=== PATIENT | female | born 1940 | race Caucasian/White ===

== ENCOUNTER → 2016-08-22 | Outpatient (CLI) | payer MEDICARE, BC ==
[2016-08-22 10:14] LABS: Appearance,Urine Clear (Clear); Bilirubin,Urine Negative (Negative); Glucose,Urine (UA) Negative (Negative); Ketones,Urine Negative (Negative); Leukocyte Esterase,Urine Negative (Negative); Nitrite,Urine Negative (Negative); PH, Urine 6.5 (5.0-8.0); Protein,Urine Negative (Negative); Specific Gravity,Urine 1.014 (1.001-1.035); UA Billing (MACRO vs. MICRO) CHEM; Urobilinogen,Urine <2.0 mg/dL (<2.0)
[2016-08-22 10:58] LABS: CH 27.9; CHCM 31.4; HCT 34.2 % (34.0-46.0); HDW 2.97; HGB 10.8 gm/dL (11.4-16.0); Hypochromasia Slight; MCH 28.2 pg (25.0-35.0); MCHC 31.5 g/dL (31.0-37.0); MCV 89.4 fL (80.0-100.0); RBC 3.83 m/uL (3.80-5.40); RDW 14.1 % (11.5-15.5); WBC 4.7 k/uL (3.8-10.6)
[2016-08-22 11:02] LABS: AST 20 U/L (14-36); Alkaline Phosphatase 62 U/L (38-126); Anion Gap 11 mmol/L; Blood Urea Nitrogen 16 mg/dL (7-17); Calcium 9.6 mg/dL (8.4-10.2); Carbon Dioxide 27 mmol/L (22-30); Chloride 105 mmol/L (98-107); Cholesterol 132 mg/dL (<200); Glucose 94 mg/dL (74-99); HDL Cholesterol 41 mg/dL (40-60); Non-African American GFR(MDRD) 57 (>60 ml/min/1.73 sqM); Potassium 4.7 mmol/L (3.5-5.1); Sodium 143 mmol/L (137-145); Total Bilirubin 0.4 mg/dL (0.2-1.3); Total Protein 6.9 g/dL (6.3-8.2); Triglycerides 175 mg/dL (<150)
[2016-08-22 11:07] LABS: ALT 30 U/L (9-52)
--- NOTE | 2016-08-22 12:00 | BD ---
EXAMINATION TYPE: MG DEXA axial skeleton. DATE OF EXAM: 08/22/2016 9:37 AM COMPARISON: NONE CLINICAL HISTORY: Height: 60.5 IN Weight: 142 LBS FRAX RISK QUESTIONS: Alcohol (3 or more units per day): NO Family History (Parent hip fracture): YES MOTHER Glucocorticoids (More than 3mos): NO (Ex: prednisone, prednisolone, methylprednisolone, dexamethasone, and hydrocortisone). History of Fracture in Adulthood: YES Secondary Osteoporosis: 1. Type 1 Diabetes: NO 2. Hyperthyroidism: NO 3. Menopause before 45: AGE 49 4. Malnutrition: NO 5. Chronic liver disease: NO Rheumatoid Arthritis: NO Current Tobacco Use: NO RISK FACTORS HISTORY OF: History of Wrist Fracture: YES When: AGE 9 Other Fractures since Age 49: YES RT SHOULDER When: AGE 70 Active: MODERATE Postmenopausal woman: YES AGE 49 Lost more than 2 inches in height since high school: YES 4 08/11" MEDICATIONS: Thyroid Medications: YES Which medication: Synthroid How Lon+ YRS Osteoporosis Medications: NOT NOW Which medication: Fosamax How Long: AGE 55 - 56 Additional Medications: OS TOMMY, SYNTHROID, AFIB MEDS, WHARFARIN, PREVACID, EXAM MEASUREMENTS: Bone mineral densitometry was performed using the [employer] System. Bone mineral density as measured about the Lumbar spine is: ----- L1-L4(G/cm2): 0.886 T Score Values are as follows: ----- L2: -3.0 ----- L3: -2.7 ----- L4: -2.0 ----- L1-L4: -2.5 Bone mineral density BASELINE Bone mineral density about the R hip (g/cm2): 0.591 Bone mineral density about the L hip (g/cm2): 0.570 T Score values are as follows: -----R Neck: -3.2 -----L Neck: -3.4 -----R Intertrochanter: -4.0 -----L Intertrochanter: -4.0 Bone mineral density BASELINE IMPRESSION: Osteoporosis (T Score less than -2.5) as noted by T Score values at the There is increased fracture risk and therapy is usually indicated based on age. Re-Screen 1-2 years. L SPINE AND MATHEW HIPS NOTE: T-SCORE=SD OF THE YOUNG ADULT MEAN.
== END | disposition home or self-care (01) ==
LOC: RADBDWWP 09:05
PROVIDERS: ATTEND Internal Medicine
DX: M81.0 Age-related osteoporosis without current pathological fracture (principal); E03.9 Hypothyroidism, unspecified; E78.5 Hyperlipidemia, unspecified; I48.0 Paroxysmal atrial fibrillation; M19.90 Unspecified osteoarthritis, unspecified site
CPT/HCPCS: 36415; 77080; 80053; 80061; 81003; 82306; 84443; 85027

== ENCOUNTER → 2016-09-09 | Outpatient (CLI) | payer MEDICARE, BC ==
[~2016-09-09] MED LIST: DENOSUMAB 60 MG/ML 1 ML SYRINGE SQ ONE
[2016-09-09 14:27] VITALS: BP 133/71; PULSE 73; RESP 16; TEMP 97.9
== END | disposition home or self-care (01) ==
LOC: PROCWHC3 13:55
PROVIDERS: ATTEND Internal Medicine
DX: M81.0 Age-related osteoporosis without current pathological fracture (principal)
CPT/HCPCS: 96372; J0897

== ENCOUNTER 2017-02-05 16:04 | Emergency (ER) | payer MEDICARE, BC ==
[2017-02-05] MEDS ORDERED: HYDROmorphone 1 MG/ML 1 ML SYRINGE IVP STA (18:56)
--- NOTE | 2017-02-05 19:04 | ED ---
Extremity Problem HPI - General Chief complaint: Extremity Problem,Nontraumatic Stated complaint: Leg Pain Time Seen by Provider: 02/05/17 18:14 Source: patient, RN notes reviewed Mode of arrival: wheelchair Limitations: no limitations - History of Present Illness Initial comments: Patient is a 76-year-old female presents to the emergency room for evaluation of right leg pain. Patient states she woke up in the middle of the night with pain. Patient states pain is worse and she presses over the posterior portion of her knee or when she is applying weight to her right leg. Patient states she has a history of DVT in her left leg. Patient states that she takes 5 mg of Coumadin per day. Patient states her last INR check was about 3 weeks ago. Patient does admit she has a history of arthritis in her knee as well. Patient denies any warmth or redness in her knee. Patient denies back pain. Patient states she is having slight calf pain. Patient denies chest pain or shortness of breath. Patient denies fevers or chills. Patient denies any fall or trauma to her leg. - Related Data Home Medications Medication Instructions Recorded Confirmed Calcium Carb-Vit D 500Mg-200Un 1 tab PO QAM 01/22/14 02/05/17 [Oscal 500+D] Digoxin [Lanoxin] 125 mcg PO QAM 01/22/14 02/05/17 Lansoprazole [Prevacid] 30 mg PO W/SUPPER 01/22/14 02/05/17 Levothyroxine Sodium [Synthroid] 50 mcg PO QAM 01/22/14 02/05/17 Warfarin [Coumadin] 5 mg PO Q48H 01/22/14 02/05/17 Furosemide [Lasix] 20 mg PO DAILY PRN 02/05/17 02/05/17 Metoprolol Tartrate [Lopressor] 37.5 mg PO BID 02/05/17 02/05/17 Multivitamins, Thera [Multivitamin 1 tab PO QAM 02/05/17 02/05/17 (formulary)] Allergies Allergy/AdvReac Type Severity Reaction Status Date / Time Iodinated Contrast Media - Allergy Rash/Hives Verified 02/05/17 19:05 Oral and theophylline Allergy Anaphylaxis Verified 02/05/17 19:05 Review of Systems ROS Statement: Those systems with pertinent positive or pertinent negative responses have been documented in the HPI. ROS Other: All systems not noted in ROS Statement are negative. Past Medical History Past Medical History: COPD, Deep Vein Thrombosis (DVT), Osteoarthritis (OA), Pulmonary Embolus (PE), Thyroid Disorder History of Any Multi-Drug Resistant Organisms: MRSA Date of last positivie culture/infection: 2012 MDRO Source:: EYES Past Surgical History: Cholecystectomy, Orthopedic Surgery Additional Past Surgical History / Comment(s): CARPAL TUNNEL, CATARACT shoulder Past Psychological History: No Psychological Hx Reported Smoking Status: Former smoker Past Alcohol Use History: Occasional Past Drug Use History: None Reported General Exam - General Exam Comments Initial Comments: Sitting in exam room, no acute distress. Limitations: no limitations General appearance: alert, in no apparent distress Head exam: Present: atraumatic, normocephalic, normal inspection Eye exam: Present: normal appearance ENT exam: Present: normal exam Neck exam: Present: normal inspection Respiratory exam: Present: normal lung sounds bilaterally. Absent: respiratory distress Cardiovascular Exam: Present: regular rate, normal rhythm, normal heart sounds Right Knee exam: Present: full ROM, tenderness (posterior ). Absent: normal inspection (swelling) Lower Leg exam: Present: normal inspection, tenderness Ankle exam: Present: normal inspection. Absent: tenderness Neurovascular tendon exam: Present: no vascular compromise. Absent: pulse deficit (2+ dorsal pedal and posterior tibial pulses), abnormal cap refill ( capillary refill less than 2 seconds) Back exam: Present: normal inspection Neurological exam: Present: alert, oriented X3, CN II-XII intact, normal gait Psychiatric exam: Present: normal affect, normal mood Skin exam: Present: warm, dry, intact, normal color. Absent: rash Course Vital Signs 02/05/17 02/05/17 02/05/17 16:15 19:25 21:02 Temperature 98.7 F 97.2 F L Pulse Rate 96 74 83 Respiratory 18 18 19 Rate Blood Pressure 135/63 159/77 144/70 O2 Sat by Pulse 93 L 98 96 Oximetry Medical Decision Making - Medical Decision Making Patient is a 76-year-old female presents to the emergency room for evaluation of right knee pain. Venous Doppler ultrasound of right lower extremity negative for acute DVT. Ringing x-ray significant for arthritis. INR therapeutic level. Results discussed with patient. Patient states she is [facility] at home to take for pain. No redness or erythema of the knee or leg. Advised patient to follow-up with primary care provider symptoms are not subsiding. Patient states she understands everything that was discussed with her. Return parameters discussed. Case discussed with Dr. Us. - Lab Data Lab Results 02/05/17 Range/Units 19:20 PT 21.6 H (9.0-12.0) sec INR 2.2 (<1.1) - Radiology Data Radiology results: report reviewed, image reviewed Disposition Clinical Impression: Right knee pain, Osteoarthritis of right knee Disposition: HOME SELF-CARE Condition: Good Instructions: Osteoarthritis (ED) Additional Instructions: Continue with at home pain medications. Please follow up with primary care provider in 1-2 days. If any new symptom arises or symptoms worsen, return to ER as soon as possible. Referrals: Yang Dorado MD [Primary Care Provider] - 1-2 days Time of Disposition: 20:48
[2017-02-05 19:52] LABS: INR 2.2 (<1.1); Prothrombin Time 21.6 sec (9.0-12.0)
--- NOTE | 2017-02-05 20:31 | US ---
EXAMINATION TYPE: US VENOUS DOPPLER DUPLEX LE RT DATE OF EXAM: 02/05/2017 7:54 PM COMPARISON: NONE CLINICAL HISTORY: Right knee Pain. Patient states she currently takes blood thinners SIDE PERFORMED: Right TECHNIQUE: The lower extremity deep venous system is examined utilizing real time linear array sonog talib with graded compression, doppler sonography and color-flow sonography. VESSELS IMAGED: External Iliac Vein (EIV) Common Femoral Vein Deep Femoral Vein Greater Saphenous Vein * Femoral Vein Popliteal Vein Small Saphenous Vein * Proximal Calf Veins (* superficial vessels) Findings: No evidence of acute DVT. Non-occlusive, probable chronic DVT visualized in the right CFV. IMPRESSION: 1. NEGATIVE FOR ACUTE RIGHT LOWER EXTREMITY DEEP VENOUS THROMBOSIS. 2. RIGHT COMMON FEMORAL VEIN NONOCCLUSIVE CHRONIC THROMBUS NOTED.
--- NOTE | 2017-02-05 20:36 | XR ---
EXAMINATION TYPE: XR knee complete RT 3V DATE OF EXAM: 02/05/2017 COMPARISON: NONE HISTORY: Pain TECHNIQUE: AP, oblique AP, and lateral views FINDINGS: There is no fracture or malalignment. There is a striking medullary bone finding involving the distal femur and the proximal tibia - seen t hroughout the metadiaphyseal regions. This is a serpentine mosaic pattern of increased density and is virtually pathognomonic for healed bone infarction. There is chondrocalcinosis throughout the lateral and medial compartments with marked joint space jane rowing and remodeling of the medial compartment and with moderate joint space narrowing of the latera l compartment and anterior compartment. Mild/moderate osteophytic spurring of all 3 compartments note d. The soft tissues are unremarkable. IMPRESSION: 1. NO ACUTE PROCESS. 2. TRICOMPARTMENTAL ADVANCED OSTEOARTHRITIS, SEVERE IN THE MEDIAL COMPARTMENT. 3. 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
[2017-02-05 21:03] VITALS: BP 144/70; PULSE 83; RESP 19; TEMP 97.2
== END 2017-02-05 21:06 | disposition home or self-care (01) ==
LOC: EC 16:04
DX: M17.11 Unilateral primary osteoarthritis, right knee (principal); E07.9 Disorder of thyroid, unspecified; Z87.891 Personal history of nicotine dependence; Z79.01 Long term (current) use of anticoagulants; Z79.899 Other long term (current) drug therapy; Z91.041 Radiographic dye allergy status; Z88.8 Allergy status to other drugs, medicaments and biological substances; Z86.718 Personal history of other venous thrombosis and embolism; Z86.711 Personal history of pulmonary embolism
CPT/HCPCS: 36415; 85610; 73562; 93971; 99284; 96374; J1170

== ENCOUNTER → 2017-03-13 | Outpatient (CLI) | payer MEDICARE, BC ==
[2017-03-13 13:19] VITALS: BP 117/71; PULSE 68; RESP 16; TEMP 98.3
== END | disposition home or self-care (01) ==
LOC: PROCWHC3 12:49
PROVIDERS: ATTEND Internal Medicine
DX: M81.0 Age-related osteoporosis without current pathological fracture (principal)
CPT/HCPCS: 96372; J0897

== ENCOUNTER 2017-08-15 14:07 | Emergency (ER) | payer MEDICARE, BC ==
[2017-08-15] MEDS ORDERED: IBUPROFEN 600 MG TAB PO STA (14:44)
[2017-08-15] MEDS ORDERED: ACETAMINOPHEN TAB 500 MG TAB PO STA (14:44)
[2017-08-15] MEDS ORDERED: SODIUM CHLORIDE 0.9% 500 ML IV SCH (14:45)
--- NOTE | 2017-08-15 14:50 | ED ---
General Adult HPI - General Chief complaint: Shortness of Breath Stated complaint: Flu like symptoms, diff breathing Time Seen by Provider: 08/15/17 14:10 Source: patient, RN notes reviewed Mode of arrival: wheelchair Limitations: no limitations - History of Present Illness Initial comments: This is a 76-year-old female who presents emergency Department complaining of history resident of COPD. Patient comes in today complaining of shortness of breath and coughing. Patient states she did have a flu shot this year. Patient states she did feel hot has the chills today. Patient did not take her temperature. Patient denies chest pain or palpitations. Patient states she has no headache no numbness or weakness. Patient denies lightheadedness or dizziness. Patient denies any dysuria hematuria urinary frequency. Patient denies any edema to the legs. - Related Data Home Medications Medication Instructions Recorded Confirmed Calcium Carb-Vit D 500Mg-200Un 1 tab PO DAILY 01/22/14 08/15/17 [Oscal 500+D] Digoxin [Lanoxin] 125 mcg PO DAILY 01/22/14 08/15/17 Lansoprazole [Prevacid] 30 mg PO W/SUPPER 01/22/14 08/15/17 Levothyroxine Sodium [Synthroid] 50 mcg PO DAILY 01/22/14 08/15/17 Warfarin [Coumadin] 5 mg PO Q48H 01/22/14 08/15/17 Multivitamins, Thera [Multivitamin 1 tab PO DAILY 02/05/17 08/15/17 (formulary)] Albuterol Nebulized [Ventolin 2.5 mg INHALATION RT-BID PRN 08/15/17 08/15/17 Nebulized] Ipratropium-Albuterol Nebulize 3 ml INHALATION RT-BID PRN 08/15/17 08/15/17 [Duoneb 0.5 mg-3 mg/3 ml Soln] Metoclopramide [Reglan] 5 mg PO DAILY 08/15/17 08/15/17 Allergies Allergy/AdvReac Type Severity Reaction Status Date / Time Iodinated Contrast- Oral and Allergy Rash/Hives Verified 08/15/17 14:44 IV Dye [Iodinated Contrast Media - Oral and] theophylline Allergy Anaphylaxis Verified 08/15/17 14:44 Review of Systems ROS Statement: Those systems with pertinent positive or pertinent negative responses have been documented in the HPI. ROS Other: All systems not noted in ROS Statement are negative. Past Medical History Past Medical History: COPD, Deep Vein Thrombosis (DVT), Osteoarthritis (OA), Pulmonary Embolus (PE), Thyroid Disorder History of Any Multi-Drug Resistant Organisms: MRSA Date of last positivie culture/infection: 2012 MDRO Source:: EYES Past Surgical History: Cholecystectomy, Orthopedic Surgery Additional Past Surgical History / Comment(s): CARPAL TUNNEL, CATARACT shoulder Past Psychological History: No Psychological Hx Reported Smoking Status: Former smoker Past Alcohol Use History: Occasional Past Drug Use History: None Reported General Exam - General Exam Comments Initial Comments: GENERAL: Patient is well-developed and well-nourished. Patient is nontoxic and well- hydrated and is in mild distress. ENT: Neck is soft and supple. No significant lymphadenopathy is noted. Oropharynx is clear. Moist mucous membranes. Neck has full range of motion without eliciting any pain. EYES: The sclera were anicteric and conjunctiva were pink and moist. Extraocular movements were intact and pupils were equal round and reactive to light. Eyelids were unremarkable. PULMONARY: Some extra auditory wheezing with dry crackles in the bases CARDIOVASCULAR: There is a regular rate and rhythm without any murmurs gallops or rubs. ABDOMEN: Soft and nontender with normal bowel sounds. No palpable organomegaly was noted. There is no palpable pulsatile mass. SKIN: Skin is clear with no lesions or rashes and otherwise unremarkable. NEUROLOGIC: Patient is alert and oriented x3. Cranial nerves II through XII are grossly intact. Motor and sensory are also intact. Normal speech, volume and content. Symmetrical smile. MUSCULOSKELETAL: Normal extremities with adequate strength and full range of motion. LYMPHATICS: No significant lymphadenopathy is noted PSYCHIATRIC: Normal psychiatric evaluation. Normal interpersonal interactions appears functionally intact in deals appropriately with others. No signs of depression. No signs of anxiety. Limitations: no limitations Course Vital Signs 08/15/17 08/15/17 08/15/17 14:14 14:26 15:25 Temperature 99.4 F 102 F H Pulse Rate 103 H 92 Respiratory 18 24 20 Rate Blood Pressure 132/66 O2 Sat by Pulse 95 94 L Oximetry 08/15/17 08/15/17 08/15/17 16:59 17:05 17:15 Temperature 99.9 F H Pulse Rate 94 86 91 Respiratory 22 Rate Blood Pressure 144/66 O2 Sat by Pulse 91 L Oximetry 08/15/17 08/15/17 08/15/17 17:16 17:28 17:35 Temperature Pulse Rate 91 103 H Respiratory Rate Blood Pressure O2 Sat by Pulse 95 Oximetry Medical Decision Making - Medical Decision Making EKG shows sinus tachycardia at 102 bpm MS interval is 198 QRSs 84 QT interval 336 QTC is 437. Patient's EKG shows no ST segment elevation or depression however EKG is of extremely poor quality.new. Patient got up and ambulated around after her breathing treatment and was oxygenating at 94-95% stated she was not short of breath and felt at her baseline. - Lab Data Result diagrams: 08/15/17 14:35 08/15/17 14:35 Lab Results 08/15/17 08/15/17 08/15/17 Range/Units 14:35 14:35 14:35 WBC 5.4 (3.8-10.6) k/uL RBC 4.35 (3.80-5.40) m/uL Hgb 12.5 (11.4-16.0) gm/dL Hct 39.1 (34.0-46.0) % MCV 90.0 (80.0-100.0) fL MCH 28.7 (25.0-35.0) pg MCHC 31.9 (31.0-37.0) g/dL RDW 14.6 (11.5-15.5) % Plt Count 178 (150-450) k/uL Neutrophils % 76 % Lymphocytes % 9 % Monocytes % 6 % Eosinophils % 4 % Basophils % 1 % Neutrophils # 4.1 (1.3-7.7) k/uL Lymphocytes # 0.5 L (1.0-4.8) k/uL Monocytes # 0.4 (0-1.0) k/uL Eosinophils # 0.2 (0-0.7) k/uL Basophils # 0.0 (0-0.2) k/uL PT (9.0-12.0) sec INR (<1.2) APTT (22.0-30.0) sec Sodium 139 (137-145) mmol/L Potassium 4.5 (3.5-5.1) mmol/L Chloride 102 (98-107) mmol/L Carbon Dioxide 25 (22-30) mmol/L Anion Gap 12 mmol/L BUN 15 (7-17) mg/dL Creatinine 1.00 (0.52-1.04) mg/dL Est GFR (MDRD) Af Amer >60 (>60 ml/min/1.73 sqM) Est GFR (MDRD) Non-Af 54 (>60 ml/min/1.73 sqM) Glucose 93 (74-99) mg/dL Plasma Lactic Acid Raúl 1.7 (0.7-2.0) mmol/L Calcium 9.8 (8.4-10.2) mg/dL Total Bilirubin 0.7 (0.2-1.3) mg/dL AST 30 (14-36) U/L ALT 36 (9-52) U/L Alkaline Phosphatase 65 (38-126) U/L Total Creatine Kinase (30-135) U/L CK-MB (CK-2) (0.0-2.4) ng/mL CK-MB (CK-2) Rel Index Troponin I (0.000-0.034) ng/mL Total Protein 7.7 (6.3-8.2) g/dL Albumin 4.3 (3.5-5.0) g/dL Urine Color Urine Appearance (Clear) Urine pH (5.0-8.0) Ur Specific Barrett (1.001-1.035) Urine Protein (Negative) Urine Glucose (UA) (Negative) Urine Ketones (Negative) Urine Blood (Negative) Urine Nitrite (Negative) Urine Bilirubin (Negative) Urine Urobilinogen (<2.0) mg/dL Ur Leukocyte Esterase (Negative) Influenza Type A RNA (Not Detectd) Influenza Type B (PCR) (Not Detectd) 08/15/17 08/15/17 08/15/17 Range/Units 14:35 14:35 14:35 WBC (3.8-10.6) k/uL RBC (3.80-5.40) m/uL Hgb (11.4-16.0) gm/dL Hct (34.0-46.0) % MCV (80.0-100.0) fL MCH (25.0-35.0) pg MCHC (31.0-37.0) g/dL RDW (11.5-15.5) % Plt Count (150-450) k/uL Neutrophils % % Lymphocytes % % Monocytes % % Eosinophils % % Basophils % % Neutrophils # (1.3-7.7) k/uL Lymphocytes # (1.0-4.8) k/uL Monocytes # (0-1.0) k/uL Eosinophils # (0-0.7) k/uL Basophils # (0-0.2) k/uL PT 21.0 H (9.0-12.0) sec INR 2.3 H (<1.2) APTT 32.4 H (22.0-30.0) sec Sodium (137-145) mmol/L Potassium (3.5-5.1) mmol/L Chloride (98-107) mmol/L Carbon Dioxide (22-30) mmol/L Anion Gap mmol/L BUN (7-17) mg/dL Creatinine (0.52-1.04) mg/dL Est GFR (MDRD) Af Amer (>60 ml/min/1.73 sqM) Est GFR (MDRD) Non-Af (>60 ml/min/1.73 sqM) Glucose (74-99) mg/dL Plasma Lactic Acid Raúl (0.7-2.0) mmol/L Calcium (8.4-10.2) mg/dL Total Bilirubin (0.2-1.3) mg/dL AST (14-36) U/L ALT (9-52) U/L Alkaline Phosphatase (38-126) U/L Total Creatine Kinase 73 (30-135) U/L CK-MB (CK-2) 0.3 (0.0-2.4) ng/mL CK-MB (CK-2) Rel Index 0.4 Troponin I <0.012 (0.000-0.034) ng/mL Total Protein (6.3-8.2) g/dL Albumin (3.5-5.0) g/dL Urine Color Urine Appearance (Clear) Urine pH (5.0-8.0) Ur Specific Barrett (1.001-1.035) Urine Protein (Negative) Urine Glucose (UA) (Negative) Urine Ketones (Negative) Urine Blood (Negative) Urine Nitrite (Negative) Urine Bilirubin (Negative) Urine Urobilinogen (<2.0) mg/dL Ur Leukocyte Esterase (Negative) Influenza Type A RNA Not Detected (Not Detectd) Influenza Type B (PCR) Not Detected (Not Detectd) 08/15/17 Range/Units 15:20 WBC (3.8-10.6) k/uL RBC (3.80-5.40) m/uL Hgb (11.4-16.0) gm/dL Hct (34.0-46.0) % MCV (80.0-100.0) fL MCH (25.0-35.0) pg MCHC (31.0-37.0) g/dL RDW (11.5-15.5) % Plt Count (150-450) k/uL Neutrophils % % Lymphocytes % % Monocytes % % Eosinophils % % Basophils % % Neutrophils # (1.3-7.7) k/uL Lymphocytes # (1.0-4.8) k/uL Monocytes # (0-1.0) k/uL Eosinophils # (0-0.7) k/uL Basophils # (0-0.2) k/uL PT (9.0-12.0) sec INR (<1.2) APTT (22.0-30.0) sec Sodium (137-145) mmol/L Potassium (3.5-5.1) mmol/L Chloride (98-107) mmol/L Carbon Dioxide (22-30) mmol/L Anion Gap mmol/L BUN (7-17) mg/dL Creatinine (0.52-1.04) mg/dL Est GFR (MDRD) Af Amer (>60 ml/min/1.73 sqM) Est GFR (MDRD) Non-Af (>60 ml/min/1.73 sqM) Glucose (74-99) mg/dL Plasma Lactic Acid Raúl (0.7-2.0) mmol/L Calcium (8.4-10.2) mg/dL Total Bilirubin (0.2-1.3) mg/dL AST (14-36) U/L ALT (9-52) U/L Alkaline Phosphatase (38-126) U/L Total Creatine Kinase (30-135) U/L CK-MB (CK-2) (0.0-2.4) ng/mL CK-MB (CK-2) Rel Index Troponin I (0.000-0.034) ng/mL Total Protein (6.3-8.2) g/dL Albumin (3.5-5.0) g/dL Urine Color Yellow Urine Appearance Clear (Clear) Urine pH 8.0 (5.0-8.0) Ur Specific Barrett 1.015 (1.001-1.035) Urine Protein Negative (Negative) Urine Glucose (UA) Negative (Negative) Urine Ketones Negative (Negative) Urine Blood Negative (Negative) Urine Nitrite Negative (Negative) Urine Bilirubin Negative (Negative) Urine Urobilinogen <2.0 (<2.0) mg/dL Ur Leukocyte Esterase Negative (Negative) Influenza Type A RNA (Not Detectd) Influenza Type B (PCR) (Not Detectd) Disposition Clinical Impression: Viral syndrome Disposition: HOME SELF-CARE Condition: Good Instructions: Viral Syndrome (ED) Referrals: Yang Dorado MD [Primary Care Provider] - 1-2 days Time of Disposition: 17:41
[2017-08-15 15:11] LABS: INR 2.3 (<1.2); Partial Thromboplastin Time 32.4 sec (22.0-30.0)
[2017-08-15 15:14] LABS: ALT 36 U/L (9-52); AST 30 U/L (14-36); Albumin 4.3 g/dL (3.5-5.0); Alkaline Phosphatase 65 U/L (38-126); Anion Gap 12 mmol/L; Blood Urea Nitrogen 15 mg/dL (7-17); Calcium 9.8 mg/dL (8.4-10.2); Carbon Dioxide 25 mmol/L (22-30); Chloride 102 mmol/L (98-107); Glucose 93 mg/dL (74-99); Potassium 4.5 mmol/L (3.5-5.1); Sodium 139 mmol/L (137-145); Total Bilirubin 0.7 mg/dL (0.2-1.3); Total Protein 7.7 g/dL (6.3-8.2)
[2017-08-15 15:16] LABS: Basophils % (A) 1 %; Eosinophils # (A) 0.2 k/uL (0-0.7); Eosinophils % (A) 4 %; HCT 39.1 % (34.0-46.0); HGB 12.5 gm/dL (11.4-16.0); Lymphocytes # (A) 0.5 k/uL (1.0-4.8); Lymphocytes % (A) 9 %; MCH 28.7 pg (25.0-35.0); MCHC 31.9 g/dL (31.0-37.0); Mean Platelet Volume 7.1; Monocytes # (A) 0.4 k/uL (0-1.0); Monocytes % (A) 6 %; Neutrophils # (A) 4.1 k/uL (1.3-7.7); Neutrophils % (A) 76 %; Platelet Count 178 k/uL (150-450); RBC 4.35 m/uL (3.80-5.40); RDW 14.6 % (11.5-15.5); WBC 5.4 k/uL (3.8-10.6)
--- NOTE | 2017-08-15 15:19 | XR ---
EXAMINATION TYPE: XR chest 2V DATE OF EXAM: 08/15/2017 COMPARISON: Chest x-ray November 19, 2012 HISTORY: Fever TECHNIQUE: Frontal and lateral views of the chest are obtained. FINDINGS: There is chronic parenchymal change with patchy right basilar linear scarring and/or atele ctasis but no new suspicious focal air space opacity, pleural effusion, or pneumothorax seen. The ca rdiac silhouette size is mildly enlarged with atherosclerotic and ectatic aorta. The osseous struct ures are demineralized. There is degenerative change proximal right femur partially imaged. IMPRESSION: Chronic parenchymal changes and cardiomegaly without suspicious acute infiltrate.
[2017-08-15 15:21] LABS: Creatine Kinase 73 U/L (30-135)
[2017-08-15 15:33] LABS: Appearance,Urine Clear (Clear); Bilirubin,Urine Negative (Negative); Blood,Urine Negative (Negative); Color,Urine Yellow; Glucose,Urine (UA) Negative (Negative); Ketones,Urine Negative (Negative); Leukocyte Esterase,Urine Negative (Negative); Nitrite,Urine Negative (Negative); Protein,Urine Negative (Negative); Specific Gravity,Urine 1.015 (1.001-1.035); Urobilinogen,Urine <2.0 mg/dL (<2.0)
[2017-08-15 15:34] LABS: Creatine Kinase MB 0.3 ng/mL (0.0-2.4); Troponin I <0.012 ng/mL (0.000-0.034)
[2017-08-15] MEDS ORDERED: IPRATROPIUM-ALBUTEROL 3 ML NEB INHALATION STA ×2 (15:53→16:55)
[2017-08-15 16:59] VITALS: BP 144/66; RESP 22; TEMP 99.9
[2017-08-15 17:28] VITALS: PULSE 103
== END 2017-08-15 17:45 | disposition home or self-care (01) ==
LOC: EC 14:07
DX: B34.9 Viral infection, unspecified (principal); J44.9 Chronic obstructive pulmonary disease, unspecified; E07.9 Disorder of thyroid, unspecified; Z86.718 Personal history of other venous thrombosis and embolism; Z86.711 Personal history of pulmonary embolism; Z86.14 Personal history of Methicillin resistant Staphylococcus aureus infection; Z87.891 Personal history of nicotine dependence; Z79.01 Long term (current) use of anticoagulants; Z79.899 Other long term (current) drug therapy; Z91.041 Radiographic dye allergy status; Z88.8 Allergy status to other drugs, medicaments and biological substances
CPT/HCPCS: 36415; 71046; 80053; 81003; 82550; 82553; 83605; 84484; 85025; 85610; 85730; 87040; 87086; 87502; 93005; 94640; 96360; 96361; 99285

== ENCOUNTER 2020-06-18 10:42 | Inpatient (IN) | payer MEDICARE, BC ==
[2020-06-18] MEDS ORDERED: ONDANSETRON 4 MG/2 ML VIAL IVP STA (11:57)
[2020-06-18] MEDS ORDERED: MORPHINE SULFATE 4 MG/ML SYRINGE IVP STA (11:57)
--- NOTE | 2020-06-18 12:00 | ED ---
Extremity Problem HPI - General Chief complaint: Extremity Problem,Nontraumatic Stated complaint: Swelling in arm Time Seen by Provider: 06/18/20 11:44 Source: patient, family, RN notes reviewed Mode of arrival: ambulatory Limitations: no limitations - History of Present Illness Initial comments: this an 79-year-old female presents to the emergency Department with chief complaint of right arm pain, swelling and redness. Patient states started last Thursday. Patient was seen at [facility] and was placed on clindamycin for possible infection. Patient states that they debated placing her on steroids for possible gout Estrace a history of pseudogout. Patient states his symptoms have worsened since taking antibiotics she's had increase in pain. Patient denies any fevers or chills she states she has severe pain with movement. States started and hand has not spread into the forearm, and digits of her right hand. Denies any trauma. She does have a history of blood clots though she is on Coumadin. - Related Data Home Medications Medication Instructions Recorded Confirmed Calcium Carb-Vit D 500Mg-200Un 1 tab PO BID 01/22/14 06/18/20 [Oscal 500+D] Digoxin [Lanoxin] 125 mcg PO DAILY 01/22/14 06/18/20 Lansoprazole [Prevacid] 30 mg PO AC-SUPPER 01/22/14 06/18/20 Levothyroxine Sodium [Synthroid] 50 mcg PO DAILY 01/22/14 06/18/20 Warfarin [Coumadin] 5 mg PO Q48H 01/22/14 06/18/20 Multivitamins, Thera [Multivitamin 1 tab PO DAILY 02/05/17 06/18/20 (formulary)] Ipratropium-Albuterol Nebulize 3 ml INHALATION RT-BID PRN 08/15/17 06/18/20 [Duoneb 0.5 mg-3 mg/3 ml Soln] Metoprolol Tartrate [Lopressor] 37.5 mg PO BID 06/18/20 06/18/20 clindamycin HCL [Cleocin] 300 mg PO TID 06/18/20 06/18/20 Allergies Allergy/AdvReac Type Severity Reaction Status Date / Time Iodinated Contrast Media Allergy Rash/Hives Verified 06/18/20 13:32 [Iodinated Contrast Media - Oral and] theophylline Allergy Anaphylaxis Verified 06/18/20 13:32 Review of Systems ROS Statement: Those systems with pertinent positive or pertinent negative responses have been documented in the HPI. ROS Other: All systems not noted in ROS Statement are negative. Past Medical History Past Medical History: COPD, Deep Vein Thrombosis (DVT), Osteoarthritis (OA), Pulmonary Embolus (PE), Thyroid Disorder History of Any Multi-Drug Resistant Organisms: MRSA Date of last positivie culture/infection: 2012 MDRO Source:: EYES Past Surgical History: Cholecystectomy, Orthopedic Surgery Additional Past Surgical History / Comment(s): CARPAL TUNNEL, CATARACT shoulder Past Psychological History: No Psychological Hx Reported Smoking Status: Never smoker Past Alcohol Use History: Occasional Past Drug Use History: None Reported General Exam Limitations: no limitations General appearance: alert, in no apparent distress Head exam: Present: atraumatic, normocephalic, normal inspection Eye exam: Present: normal appearance, PERRL, EOMI. Absent: scleral icterus, conjunctival injection, periorbital swelling Respiratory exam: Present: normal lung sounds bilaterally. Absent: respiratory distress, wheezes, rales, rhonchi, stridor Cardiovascular Exam: Present: regular rate, normal rhythm, normal heart sounds. Absent: systolic murmur, diastolic murmur, rubs, gallop, clicks Extremities exam: Present: other (right arm there is significant swelling noted, erythema extending from the digits to the mid forearm with increased warmth and tenderness with palpation. Radial pulses are equal bilaterally) Course Vital Signs 06/18/20 10:45 Temperature 98.4 F Pulse Rate 73 Respiratory 18 Rate Blood Pressure 129/69 O2 Sat by Pulse 96 Oximetry Medical Decision Making - Medical Decision Making patient's ultrasound was unremarkable x-ray shows crystallization, arthritic changes. Patient symptoms are concerning for septic joint. Patient be admitted for IV antibiotics, or though infectious disease consult. - Lab Data Result diagrams: 06/18/20 12:12 06/18/20 12:12 Lab Results 06/18/20 06/18/20 06/18/20 Range/Units 12:12 12:12 12:12 WBC 4.9 (3.8-10.6) k/uL RBC 3.96 (3.80-5.40) m/uL Hgb 11.2 L (11.4-16.0) gm/dL Hct 34.7 (34.0-46.0) % MCV 87.6 D (80.0-100.0) fL MCH 28.3 (25.0-35.0) pg MCHC 32.3 (31.0-37.0) g/dL RDW 14.8 (11.5-15.5) % Plt Count 155 (150-450) k/uL Neutrophils % 74 % Lymphocytes % 10 % Monocytes % 8 % Eosinophils % 3 % Basophils % 2 % Neutrophils # 3.6 (1.3-7.7) k/uL Lymphocytes # 0.5 L (1.0-4.8) k/uL Monocytes # 0.4 (0-1.0) k/uL Eosinophils # 0.2 (0-0.7) k/uL Basophils # 0.1 (0-0.2) k/uL ESR Cancelled PT 26.8 H (9.0-12.0) sec INR 2.8 H (<1.2) APTT 37.0 H (22.0-30.0) sec Sodium 136 L (137-145) mmol/L Potassium 4.8 (3.5-5.1) mmol/L Chloride 103 (98-107) mmol/L Carbon Dioxide 26 (22-30) mmol/L Anion Gap 7 mmol/L BUN 21 H (7-17) mg/dL Creatinine 0.86 (0.52-1.04) mg/dL Est GFR (CKD-EPI)AfAm 74 (>60 ml/min/1.73 sqM) Est GFR (CKD-EPI)NonAf 65 (>60 ml/min/1.73 sqM) Glucose 94 (74-99) mg/dL Plasma Lactic Acid Raúl (0.7-2.0) mmol/L Uric Acid 5.1 (3.7-7.4) mg/dL Calcium 9.0 (8.4-10.2) mg/dL Total Bilirubin 0.5 (0.2-1.3) mg/dL AST 25 (14-36) U/L ALT 12 (4-34) U/L Alkaline Phosphatase 56 (38-126) U/L Total Protein 7.0 (6.3-8.2) g/dL Albumin 3.7 (3.5-5.0) g/dL 06/18/20 Range/Units 12:12 WBC (3.8-10.6) k/uL RBC (3.80-5.40) m/uL Hgb (11.4-16.0) gm/dL Hct (34.0-46.0) % MCV (80.0-100.0) fL MCH (25.0-35.0) pg MCHC (31.0-37.0) g/dL RDW (11.5-15.5) % Plt Count (150-450) k/uL Neutrophils % % Lymphocytes % % Monocytes % % Eosinophils % % Basophils % % Neutrophils # (1.3-7.7) k/uL Lymphocytes # (1.0-4.8) k/uL Monocytes # (0-1.0) k/uL Eosinophils # (0-0.7) k/uL Basophils # (0-0.2) k/uL ESR PT (9.0-12.0) sec INR (<1.2) APTT (22.0-30.0) sec Sodium (137-145) mmol/L Potassium (3.5-5.1) mmol/L Chloride (98-107) mmol/L Carbon Dioxide (22-30) mmol/L Anion Gap mmol/L BUN (7-17) mg/dL Creatinine (0.52-1.04) mg/dL Est GFR (CKD-EPI)AfAm (>60 ml/min/1.73 sqM) Est GFR (CKD-EPI)NonAf (>60 ml/min/1.73 sqM) Glucose (74-99) mg/dL Plasma Lactic Acid Raúl 1.1 (0.7-2.0) mmol/L Uric Acid (3.7-7.4) mg/dL Calcium (8.4-10.2) mg/dL Total Bilirubin (0.2-1.3) mg/dL AST (14-36) U/L ALT (4-34) U/L Alkaline Phosphatase (38-126) U/L Total Protein (6.3-8.2) g/dL Albumin (3.5-5.0) g/dL Disposition Clinical Impression: Septic arthritis of right wrist Disposition: ADMITTED IP TO THIS HOSP Condition: Fair Referrals: Irene Arevalo MD [Primary Care Provider] - 1-2 days
[2020-06-18 12:24] LABS: Basophils # (A) 0.1 k/uL (0-0.2); Basophils % (A) 2 %; Eosinophils # (A) 0.2 k/uL (0-0.7); Eosinophils % (A) 3 %; HCT 34.7 % (34.0-46.0); HGB 11.2 gm/dL (11.4-16.0); Lymphocytes # (A) 0.5 k/uL (1.0-4.8); Lymphocytes % (A) 10 %; MCH 28.3 pg (25.0-35.0); MCHC 32.3 g/dL (31.0-37.0); Mean Platelet Volume 8.1; Monocytes # (A) 0.4 k/uL (0-1.0); Monocytes % (A) 8 %; Neutrophils # (A) 3.6 k/uL (1.3-7.7); Neutrophils % (A) 74 %; Platelet Count 155 k/uL (150-450); RBC 3.96 m/uL (3.80-5.40); RDW 14.8 % (11.5-15.5); WBC 4.9 k/uL (3.8-10.6)
[2020-06-18 12:29] LABS: MCV 87.6 fL (80.0-100.0)
[2020-06-18 12:40] LABS: INR 2.8 (<1.2); Prothrombin Time 26.8 sec (9.0-12.0)
[2020-06-18 12:51] LABS: Albumin 3.7 g/dL (3.5-5.0); Potassium 4.8 mmol/L (3.5-5.1); Total Bilirubin 0.5 mg/dL (0.2-1.3); Uric Acid 5.1 mg/dL (3.7-7.4)
--- NOTE | 2020-06-18 12:53 | XR ---
Right wrist HISTORY: Swelling for 4 days, pain 4 views of the right wrist There are arthropathy changes. Remodeling is present at the carpometacarpal joint. There is calcifica tion of the triangular fibrocartilage. Bone mineralization is reduced. Alignment is maintained. No fr acture or dislocation. Dense vascular calcifications are present. Remodeling at the intercarpal joint s, there is joint space loss, hypertrophic change, possible subchondral geode formation. Some spurrin g also present in the carpometacarpal joint of the first digit. There is soft tissue swelling present . 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
--- NOTE | 2020-06-18 13:32 | US ---
EXAMINATION TYPE: US venous doppler duplex UE RT DATE OF EXAM: 06/18/2020 COMPARISON: NONE CLINICAL HISTORY: pain. extreme pain near antecubital fossa and radiates down forearm, h/o DVT within leg previously but not arm SIDE PERFORMED: Right Grayscale, color doppler, spectral doppler imaging performed of the deep veins of the right upper ext remity. Visualized portions of the right internal jugular vein, subclavian vein, axillary vein, brachial vein s, basilic vein and cephalic vein, radial and ulnar veins compress normally and show no abnormal rajwinder nal echoes, Right Arm: Negative for DVT IMPRESSION: No evident deep venous thrombosis in the right upper extremity
[2020-06-18] MEDS ORDERED: VANCOMYCIN IV PER PHARMACY 1 EACH MISC MISCELLANE PRN (14:51)
[2020-06-18] MEDS ORDERED: PIPERACILLIN-TAZOBACTAM 3.375 GM in SODIUM CHLORIDE 0.9% 100 ML IVPB STA (14:51)
[2020-06-18] MEDS ORDERED: HYDROmorphone 0.5 MG/0.5 ML SYRINGE IVP STA (14:51)
[2020-06-18] MEDS ORDERED: NALOXONE 0.4 MG/ML 1 ML VIAL IV PRN (14:52)
[2020-06-18] MEDS ORDERED: ONDANSETRON 4 MG/2 ML VIAL IVP PRN (14:52)
[2020-06-18] MEDS ORDERED: HYDROcodone/APAP 5-325MG 1 EACH TAB PO PRN (14:52)
[2020-06-18 15:13] LABS: C Reactive Protein 51.3 mg/L (<10.0)
[2020-06-18] MEDS ORDERED: VANCOMYCIN 1,250 MG in SODIUM CHLORIDE 0.9% 250 ML IVPB ONE (15:30)
[2020-06-18] MEDS ORDERED: DEXAMETHASONE SOD PHOSPHATE 4 MG/ML 1 ML VIAL IV PRN (17:56)
--- NOTE | 2020-06-18 17:56 | P.CNOR ---
History of Present Illness - [facility] Consult date: 06/18/20 Consult reason: joint pain History of present illness: Patient is an 79-year-old female who presented to [facility] earlier today with regards to pain and swelling of her right wrist. Apparently this pain has been going on since last Thursday. She was evaluated in the outpatient setting at a urgent care, they have provided her with oral antibiotics. Patient's symptoms have not improved, so she did come to the hospital. She was admitted into the observation unit with workup for possible septic arthritis of the right wrist. Our orthopedic team along with infectious disease has been consult, she is admitted under internal medicine at this time. Patient was examined by myself today in the observation unit, she was resting comfortably. She is utilizing a basic wrist splint at this time. Patient denies any recent trauma to the right wrist. Patient denies feeling sick at this time, this to include fever, chills, nausea or vomiting or diarrhea. Patient states she's had a similar incidence of this involving this wrist, this was many years ago she states. At that time she states they diagnosed a pseudogout. 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 She does take Coumadin, her INR is 2. and at this time. Patient notes most of the discomfort of the wrist on the right side. She does have some discomfort that trend down the forearm and the elbow, this is mainly with range of motion of the wrist and fingers. She denies any numbness or ting ling of the right upper extremity. She denies any similar symptoms on the left upper extremity. Review of Systems Constitutional: Reports as per [facility] Past Medical History Past Medical History: Atrial Fibrillation, COPD, Deep Vein Thrombosis (DVT), Osteoarthritis (OA), Pulmonary Embolus (PE), Thyroid Disorder History of Any Multi-Drug Resistant Organisms: MRSA Year Discovered:: 2012 MDRO Source:: EYES Past Surgical History: Cholecystectomy, Orthopedic Surgery Additional Past Surgical History / Comment(s): CARPAL TUNNEL, CATARACT, right shoulder Past Psychological History: No Psychological Hx Reported Smoking Status: Never smoker Past Alcohol Use History: Occasional Past Drug Use History: None Reported Medications and Allergies Home Medications Medication Instructions Recorded Confirmed Type Calcium Carb-Vit D 500Mg-200Un 1 tab PO BID 01/22/14 06/18/20 History [Oscal 500+D] Digoxin [Lanoxin] 125 mcg PO DAILY 01/22/14 06/18/20 History Lansoprazole [Prevacid] 30 mg PO AC-SUPPER 01/22/14 06/18/20 History Levothyroxine Sodium [Synthroid] 50 mcg PO DAILY 01/22/14 06/18/20 History Warfarin [Coumadin] 5 mg PO Q48H 01/22/14 06/18/20 History Multivitamins, Thera [Multivitamin 1 tab PO DAILY 02/05/17 06/18/20 History (formulary)] Ipratropium-Albuterol Nebulize 3 ml INHALATION RT-BID PRN 08/15/17 06/18/20 History [Duoneb 0.5 mg-3 mg/3 ml Soln] Metoprolol Tartrate [Lopressor] 37.5 mg PO BID 06/18/20 06/18/20 History clindamycin HCL [Cleocin] 300 mg PO TID 06/18/20 06/18/20 History Allergies Allergy/AdvReac Type Severity Reaction Status Date / Time Iodinated Contrast Media Allergy Rash/Hives Verified 06/18/20 13:32 [Iodinated Contrast Media - Oral and] theophylline Allergy Anaphylaxis Verified 06/18/20 13:32 Physical Examination Right upper extremity: Basic wrist but was removed at bedside. There are no open lesions or sores present throughout the extremity. Minimal erythema noted over the dorsum of the wrist, there is slight erythema that trend on the volar aspect of the right forearm. Soft tissue swelling noted over the dorsal aspect of the wrist near the radiocarpal and ulnocarpal joint. I'm unable to appreciate any obvious fluctuance at that area She does have some minimal soft tissue swelling over the metacarpal joints. She is able to wiggle all the fingers with minimal difficulty, she can make a fist. Extension and flexion of the wrist along with rotation do reproduce significant discomfort in that area. She is able to extend and flex the elbow with minimal difficulty Strength testing was not assessed of the right upper extremity Sensation to light touch throughout the right upper extremity is intact, radial and ulnar pulses are 2+ Results - Labs Labs: Abnormal Lab Results - Last 24 Hours (Table) 06/18/20 06/18/20 06/18/20 Range/Units 12:12 12:12 12:12 Hgb 11.2 L (11.4-16.0) gm/dL Lymphocytes # 0.5 L (1.0-4.8) k/uL ESR (0-20) mm/hr PT 26.8 H (9.0-12.0) sec INR 2.8 H (<1.2) APTT 37.0 H (22.0-30.0) sec Sodium 136 L (137-145) mmol/L BUN 21 H (7-17) mg/dL C-Reactive Protein 51.3 H (<10.0) mg/L 06/18/20 Range/Units 13:08 Hgb (11.4-16.0) gm/dL Lymphocytes # (1.0-4.8) k/uL ESR 62 H (0-20) mm/hr PT (9.0-12.0) sec INR (<1.2) APTT (22.0-30.0) sec Sodium (137-145) mmol/L BUN (7-17) mg/dL C-Reactive Protein (<10.0) mg/L H & H 06/18/20 Range/Units 12:12 Hgb 11.2 L (11.4-16.0) gm/dL Hct 34.7 (34.0-46.0) % Coagulation 06/18/20 Range/Units 12:12 INR 2.8 H (<1.2) Result Diagrams: 06/18/20 12:12 06/18/20 12:12 - Diagnostic results Wrist/Hand x-ray: report reviewed, image reviewed (Images of the right wrist demonstrated no acute fractures or dislocations. Arthritic changes are noted throughout the wrist. There is calcifications noted in the triangular fibrocartilage. there are calcifications noted in the vasculature of the right hand and wrist region. 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 Anderson. At this moment, we recommend no orthopedic surgical intervention. Patient's INR is very high at this time, we recommend holding her anticoagulation for the time being. Patient's clinical picture does not suggest an obvious septic arthritis, it is noted her CRP and sed rate are elevated. We'll begin low dose IV steroid and monitor symptoms Infectious disease recommendations Internal medicine recommendations Recommend continuous use of the splint at this time, along with ice and elevati on Further recommendations to follow Time with Patient: Less than 30
[2020-06-18] MEDS ORDERED: IPRATROPIUM-ALBUTEROL 3 ML NEB INHALATION PRN (18:03)
--- NOTE | 2020-06-18 18:13 | P.HPIM ---
History of Present Illness H&P Date: 06/18/20 Chief Complaint: Wrist pain The patient is a 79-year-old female who presented with complaint of wrist pain that has been ongoing for the last week. The patient states that she was seen in urgent care on Thursday and at that time she was given a splint and started on oral clindamycin. She states at that time she had more erythema and swelling. The patient daughter is at bedside sitters thought her mother's pain was improving however today the patient will spend the pain 8 out of 10 she denied any fevers chills associated brought to the emergency room for evaluation. The emergency room patient was noted to have an elevated inflammatory markers she had erythema and swelling of her right wrist with no numbness or tingling of the fingers she is hospitalized for further workup and management. Review of Systems Complete review of systems done negative other than as stated above Past Medical History Past Medical History: Atrial Fibrillation, COPD, Deep Vein Thrombosis (DVT), Osteoarthritis (OA), Pulmonary Embolus (PE), Thyroid Disorder History of Any Multi-Drug Resistant Organisms: MRSA Date of last positivie culture/infection: 2012 MDRO Source:: EYES Past Surgical History: Cholecystectomy, Orthopedic Surgery Additional Past Surgical History / Comment(s): CARPAL TUNNEL, CATARACT, right shoulder Past Psychological History: No Psychological Hx Reported Smoking Status: Never smoker Past Alcohol Use History: Occasional Past Drug Use History: None Reported Medications and Allergies Home Medications Medication Instructions Recorded Confirmed Type Calcium Carb-Vit D 500Mg-200Un 1 tab PO BID 01/22/14 06/18/20 History [Oscal 500+D] Digoxin [Lanoxin] 125 mcg PO DAILY 01/22/14 06/18/20 History Lansoprazole [Prevacid] 30 mg PO AC-SUPPER 01/22/14 06/18/20 History Levothyroxine Sodium [Synthroid] 50 mcg PO DAILY 01/22/14 06/18/20 History Warfarin [Coumadin] 5 mg PO Q48H 01/22/14 06/18/20 History Multivitamins, Thera [Multivitamin 1 tab PO DAILY 02/05/17 06/18/20 History (formulary)] Ipratropium-Albuterol Nebulize 3 ml INHALATION RT-BID PRN 08/15/17 06/18/20 History [Duoneb 0.5 mg-3 mg/3 ml Soln] Metoprolol Tartrate [Lopressor] 37.5 mg PO BID 06/18/20 06/18/20 History clindamycin HCL [Cleocin] 300 mg PO TID 06/18/20 06/18/20 History Allergies Allergy/AdvReac Type Severity Reaction Status Date / Time Iodinated Contrast Media Allergy Rash/Hives Verified 06/18/20 13:32 [Iodinated Contrast Media - Oral and] theophylline Allergy Anaphylaxis Verified 06/18/20 13:32 Physical Exam Vitals: Vital Signs Temp Pulse Pulse Resp BP BP Pulse Ox 06/18/20 16:51 99.3 F 92 14 116/72 95 06/18/20 16:30 99.3 F 87 18 145/60 96 06/18/20 10:45 98.4 F 73 18 129/69 96 Intake and Output 06/18/20 06/18/20 06/18/20 06:59 14:59 22:59 Intake Total 300 Balance 300 Intake: Oral 300 Other: Weight 64.864 kg 64.864 kg - Constitutional General appearance: mild distress - EENT Eyes: PERRLA - Respiratory Respiratory: bilateral: CTA - Cardiovascular Rhythm: regular - Gastrointestinal General gastrointestinal: normal bowel sounds - Integumentary Right wrist shows slight erythema - Neurologic Neurologic: CNII-XII intact - Musculoskeletal Musculoskeletal: strength equal bilaterally - Psychiatric Psychiatric: A&O x's 3, appropriate affect Results CBC & Chem 7: 06/18/20 12:12 06/18/20 12:12 Labs: Abnormal Lab Results - Last 24 Hours (Table) 06/18/20 06/18/20 06/18/20 Range/Units 12:12 12:12 12:12 Hgb 11.2 L (11.4-16.0) gm/dL Lymphocytes # 0.5 L (1.0-4.8) k/uL ESR (0-20) mm/hr PT 26.8 H (9.0-12.0) sec INR 2.8 H (<1.2) APTT 37.0 H (22.0-30.0) sec Sodium 136 L (137-145) mmol/L BUN 21 H (7-17) mg/dL C-Reactive Protein 51.3 H (<10.0) mg/L 06/18/20 Range/Units 13:08 Hgb (11.4-16.0) gm/dL Lymphocytes # (1.0-4.8) k/uL ESR 62 H (0-20) mm/hr PT (9.0-12.0) sec INR (<1.2) APTT (22.0-30.0) sec Sodium (137-145) mmol/L BUN (7-17) mg/dL C-Reactive Protein (<10.0) mg/L Thrombosis Risk Factor Assmnt - Choose All That Apply Each Factor Represents 1 point: Obesity (BMI >25) Each Risk Factor Represents 3 Points: Age 75 years or older, History of DVT/PE Thrombosis Risk Factor Assessment Total Risk Factor Score: 7 Thrombosis Risk Factor Assessment Level: High Risk Assessment and Plan Assessment: Appreciate orthopedic input, the likelihood of septic arthritis patient is on IV vancomycin and will continue we'll continue steroids pain control with IV Dilaudid (1) Septic arthritis of right wrist Current Visit: Yes Status: Acute Code(s): M00.9 - PYOGENIC ARTHRITIS, UNSPECIFIED SNOMED Code(s): 483984936 (2) Coagulopathy Narrative/Plan: Secondary medications, hold Coumadin Current Visit: Yes Status: Acute Code(s): D68.9 - COAGULATION DEFECT, UNS PECIFIED SNOMED Code(s): 97178742 (3) Hypertension Narrative/Plan: Continue outpatient regiment and titrate as needed Current Visit: Yes Status: Acute Code(s): I10 - ESSENTIAL (PRIMARY) HYPERTENSION SNOMED Code(s): 01623542
[2020-06-18] MEDS: HYDROmorphone 0.5 MG/0.5 ML SYRINGE IVP PRN (19:29)
[2020-06-18] MEDS: CALCIUM CARB-VIT D 500MG-200UN 1 EACH TAB PO SCH (21:02)
[2020-06-18] MEDS: METOPROLOL TARTRATE 25 MG TAB PO SCH (21:02)
[2020-06-18] MEDS ORDERED: CLINDAMYCIN HCL 300 MG PO SCH (22:00)
[2020-06-19] MEDS ORDERED: PANTOPRAZOLE 40 MG TABLET PO ONE
[2020-06-19] MEDS: HYDROmorphone 0.5 MG/0.5 ML SYRINGE IVP PRN ×4 (03:28→20:29)
[2020-06-19] MEDS ORDERED: VANCOMYCIN 1,250 MG in SODIUM CHLORIDE 0.9% 250 ML IVPB SCH (06:00)
[2020-06-19] MEDS: LEVOTHYROXINE 50 MCG TAB PO SCH (06:01)
[2020-06-19] MEDS: CALCIUM CARB-VIT D 500MG-200UN 1 EACH TAB PO SCH ×2 (08:40→20:30)
[2020-06-19] MEDS: MULTIVITAMINS, THERA 1 EACH TAB PO SCH (08:41)
[2020-06-19] MEDS: METOPROLOL TARTRATE 25 MG TAB PO SCH ×2 (08:41→20:30)
[2020-06-19] MEDS: DIGOXIN 125 MCG TAB PO SCH (08:42)
--- NOTE | 2020-06-19 09:43 | CONS ---
CONSULTATION DATE OF SERVICE: 06/18/2020. REASON FOR CONSULTATION: Right hand and wrist pain and question of septic arthritis. HISTORY OF PRESENT ILLNESS: The patient is an 79-year-old female who presented to the [facility] ER with chief complaints of right forearm and wrist pain and swelling that apparently started on Thursday, a few days before presentation to the hospital. The patient states she was watching TV when she noticed the pain. The patient denies having any history of trauma or any wound and no drainage. The patient noted that it had become more swollen, red and painful. The patient describes the pain to be throbbing almost 10/10 in severity. Currently, has been evaluated in the outpatient setting at [facility] where the patient was started on clindamycin. However, the patient did not have any improvement with persistent pain, swelling and redness so the patient presented to the ER. The patient denies any fever or any chills. On arrival to the ER, the patient has been afebrile. Subsequently, a low-grade fever of 99.3. The patient did have a normal white count. The patient did have elevated CRP and sedimentation rate. INR of 2.8. 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 The patient was started on vancomycin with concern for possible septic arthritis. Infectious Disease was consulted for further management of antibiotic therapy. REVIEW OF SYSTEMS: Positive points have been mentioned in HPI. Rest of the systems are negative. PAST MEDICAL HISTORY: COPD, DVT, osteoarthritis, pulmonary embolism, hypothyroidism, and previous history of pseudogout to the right wrist area. PAST SURGICAL HISTORY: Cholecystectomy, surgery, cataract surgery. SOCIAL HISTORY: The patient denies smoking, occasionally drinks. , and family history with no pertinent findings noticed. ALLERGIES: To IODINATED CONTRAST DYE and . MEDICATIONS: Include the patient is currently on [place], DuoNeb, Os-Eyal D, vancomycin pharmacy to dose, she is started on Decadron, Lanoxin, Dilaudid, Synthroid, Lopressor, Narcan, Zofran, and Protonix. PHYSICAL EXAMINATION: Her blood pressure 107/70 with a pulse of 90, temperature 98.1, she is 94% on room air. General description is an elderly female up in the bed, in no distress. HEENT: Shows slight pallor. No scleral icterus. Oral mucosa membrane is dry, no pharyngeal erythema or thrush. NECK: Trachea central, no thyromegaly. LUNGS: Unlabored breathing, clear to auscultation anteriorly. HEART: S1, S2. Regular rate and rhythm. ABDOMEN: Soft, no tenderness. EXTREMITIES: Normal feet examination. The right wrist area did have minimal swelling, slightly warm, minimal redness, no open wound or any drainage. LABS: Hemoglobin is 11.1, white count of 4.9. BUN of 21, creatinine 0.86. CRP is 51.3. Sedimentation rate of 62. X-ray report as mentioned above. DIAGNOSTIC IMPRESSION: Patient admitted to the hospital with right wrist pain and swelling, significant redness in this patient did not have any fever and did not have any elevated white count with concern for possible pseudogout and this patient did have previous history of the same. Clinically not behaving as a septic arthritis in this patient with no fever, elevated white count, or significant redness. PLAN: 1. Discontinue vancomycin. 2. May consider short course of cefazolin 2 g q.8 while waiting for the culture to finalize. 3. Will see response to the steroids started by the Ortho. 4. Will follow on clinical condition and culture to further adjust medication if needed. Thank you for this consultation. Will follow this patient along with you. MMODL / IJN: [id number] /
[2020-06-19 10:33] LABS: INR 2.1 (<1.2); Prothrombin Time 20.9 sec (9.0-12.0)
[2020-06-19 10:36] LABS: Calcium 8.8 mg/dL (8.4-10.2); Potassium 4.7 mmol/L (3.5-5.1)
[2020-06-19 10:40] LABS: Basophils % (A) 1 %; Eosinophils # (A) 0.2 k/uL (0-0.7); Eosinophils % (A) 4 %; HCT 30.7 % (34.0-46.0); HGB 9.9 gm/dL (11.4-16.0); Lymphocytes # (A) 0.6 k/uL (1.0-4.8); Lymphocytes % (A) 14 %; MCH 28.4 pg (25.0-35.0); MCHC 32.2 g/dL (31.0-37.0); MCV 88.2 fL (80.0-100.0); Mean Platelet Volume 8.6; Monocytes # (A) 0.4 k/uL (0-1.0); Monocytes % (A) 10 %; Neutrophils # (A) 2.6 k/uL (1.3-7.7); Neutrophils % (A) 68 %; Platelet Count 146 k/uL (150-450); RBC 3.48 m/uL (3.80-5.40); RDW 14.9 % (11.5-15.5); WBC 3.8 k/uL (3.8-10.6)
--- NOTE | 2020-06-19 14:32 | P.PN ---
Subjective Progress Note Date: 06/19/20 Objective - Vital Signs Vital signs: Vital Signs Temp 98 F 06/19/20 08:32 Pulse 72 06/19/20 08:32 Resp 17 06/19/20 08:32 BP 117/63 06/19/20 08:32 Pulse Ox 93 L 06/19/20 08:32 Intake & Output 06/18/20 06/19/20 06/19/20 18:59 06:59 18:59 Intake Total 300 150 50 Balance 300 150 50 Weight 64.864 kg Intake: Intake, IV Titration 50 Amount ceFAZolin 2 gm In Sodium 50 Chloride 0.9% 50 ml @ 100 mls/hr IVPB Q8HR [facility] Rx# :[id number] Oral 300 150 Other: Voiding Method Toilet # Voids 2 1 - Constitutional General appearance: Present: no acute distress - Respiratory Respiratory: bilateral: CTA - Cardiovascular Rhythm: regular - Gastrointestinal General gastrointestinal: Present: normal bowel sounds - Integumentary Integumentary: Present: normal - Musculoskeletal Musculoskeletal Comment(s): Right wrist with swelling and no erythema - Labs CBC & Chem 7: 06/19/20 09:30 06/19/20 09:30 Labs: Abnormal Lab Results - Last 24 Hours (Table) 06/18/20 06/18/20 06/19/20 Range/Units 12:12 13:08 09:30 RBC (3.80-5.40) m/uL Hgb (11.4-16.0) gm/dL Hct (34.0-46.0) % Plt Count (150-450) k/uL Lymphocytes # (1.0-4.8) k/uL ESR 62 H (0-20) mm/hr PT 20.9 H (9.0-12.0) sec INR 2.1 H (<1.2) Sodium (137-145) mmol/L BUN (7-17) mg/dL Creatinine (0.52-1.04) mg/dL Glucose (74-99) mg/dL C-Reactive Protein 51.3 H (<10.0) mg/L 06/19/20 06/19/20 Range/Units 09:30 09:30 RBC 3.48 L (3.80-5.40) m/uL Hgb 9.9 L (11.4-16.0) gm/dL Hct 30.7 L (34.0-46.0) % Plt Count 146 L (150-450) k/uL Lymphocytes # 0.6 L (1.0-4.8) k/uL ESR (0-20) mm/hr PT (9.0-12.0) sec INR (<1.2) Sodium 135 L (137-145) mmol/L BUN 21 H (7-17) mg/dL Creatinine 1.05 H (0.52-1.04) mg/dL Glucose 102 H (74-99) mg/dL C-Reactive Protein (<10.0) mg/L Microbiology - Last 24 Hours (Table) 06/18/20 12:12 Blood Culture - Preliminary Blood No Growth after 24 hours Assessment and Plan (1) Septic arthritis of right wrist Narrative/Plan: Appreciated also/infectious disease consult. Clinical suspicion for septic arthritis. Vancomycin was discontinued patient on IV Ancef pending cultures. Optimize pain control, continue steroids Current Visit: Yes Status: Acute Code(s): M00.9 - PYOGENIC ARTHRITIS, UNSPECIFIED SNOMED Code(s): 492512455 (2) Coagulopathy Narrative/Plan: INR 2.1 therapeutic and restart Coumadin since for procedure Current Visit: Yes Status: Acute Code(s): D68.9 - COAGULATION DEFECT, UNSPECIFIED SNOMED Code(s): 94051704 (3) Hypertension Narrative/Plan: Continue outpatient regiment and titrate as needed Current Visit: Yes Status: Acute Code(s): I10 - ESSENTIAL (PRIMARY) HYPERTENSION SNOMED Code(s): 01761456 Plan: Monitor for the next 24 hours
--- NOTE | 2020-06-19 15:05 | P.PN ---
Subjective Progress Note Date: 06/19/20 Principal diagnosis: Right wrist pain and elbow pain Patient was examined today at bedside by myself and Dr. Anderson. She admits that the discomfort in the wrist has improved. She notes mostly discomfort now is turning to the right elbow. The order that was placed for the Decadron was when necessary, she has not been getting around the clock, this was changed today. She denies any fevers or chills this time. Her clinical picture is not revealing an obvious septic arthritis of the wrist at this time. Objective - Vital Signs Vital signs: Vital Signs Temp 98 F 06/19/20 08:32 Pulse 72 06/19/20 08:32 Resp 17 06/19/20 08:32 BP 117/63 06/19/20 08:32 Pulse Ox 93 L 06/19/20 08:32 Intake & Output 06/18/20 06/19/20 06/19/20 18:59 06:59 18:59 Intake Total 300 150 50 Balance 300 150 50 Weight 64.864 kg Intake: Intake, IV Titration 50 Amount ceFAZolin 2 gm In Sodium 50 Chloride 0.9% 50 ml @ 100 mls/hr IVPB Q8HR [facility] Rx# :[id number] Oral 300 150 Other: Voiding Method Toilet # Voids 2 1 - Exam Right upper extremity: Minimally erythema noted in the wrist and around the elbow, it is improved in the hand over the dorsum aspect Internal obvious open lesions or sores present The tenderness with palpation surrounding the dorsal aspect of the wrist is much improved She is tender to palpation in the elbow region, she has a difficult time with range of motion Sensory exam to light touch is intact about the extremity Radial pulse and ulnar pulse 2+ - Labs CBC & Chem 7: 06/19/20 09:30 06/19/20 09:30 Labs: Abnormal Lab Results - Last 24 Hours (Table) 06/18/20 06/18/20 06/19/20 Range/Units 12:12 13:08 09:30 RBC (3.80-5.40) m/uL Hgb (11.4-16.0) gm/dL Hct (34.0-46.0) % Plt Count (150-450) k/uL Lymphocytes # (1.0-4.8) k/uL ESR 62 H (0-20) mm/hr PT 20.9 H (9.0-12.0) sec INR 2.1 H (<1.2) Sodium (137-145) mmol/L BUN (7-17) mg/dL Creatinine (0.52-1.04) mg/dL Glucose (74-99) mg/dL C-Reactive Protein 51.3 H (<10.0) mg/L 06/19/20 06/19/20 Range/Units 09:30 09:30 RBC 3.48 L (3.80-5.40) m/uL Hgb 9.9 L (11.4-16.0) gm/dL Hct 30.7 L (34.0-46.0) % Plt Count 146 L (150-450) k/uL Lymphocytes # 0.6 L (1.0-4.8) k/uL ESR (0-20) mm/hr PT (9.0-12.0) sec INR (<1.2) Sodium 135 L (137-145) mmol/L BUN 21 H (7-17) mg/dL Creatinine 1.05 H (0.52-1.04) mg/dL Glucose 102 H (74-99) mg/dL C-Reactive Protein (<10.0) mg/L Microbiology - Last 24 Hours (Table) 06/18/20 12:12 Blood Culture - Preliminary Blood No Growth after 24 hours Assessment and Plan Assessment: Right wrist and elbow pain and swelling Possible right/elbow wrist inflammatory arthropathy Other medical comorbidities Plan: After discussion with Dr. Anderson, clinically she does not present like a septic arthritis of the wrist or elbow. We would like to continue the IV steroids on a scheduled dose and monitor symptoms. Infectious disease recommendations Internal medicine recommendations Recommend continuous use of the splint at this time, along with ice and elevation Further recommendations to follow Time with Patient: Less than 30
[2020-06-19] MEDS: DEXAMETHASONE SOD PHOSPHATE 4 MG/ML 1 ML VIAL IV SCH ×2 (15:38→20:30)
[2020-06-19] MEDS ORDERED: PANTOPRAZOLE 40 MG TABLET PO SCH (17:30)
[2020-06-19] MEDS ORDERED: WARFARIN 5 MG TAB PO SCH (18:00)
--- NOTE | 2020-06-20 00:52 | PN ---
PROGRESS NOTE DATE OF SERVICE: 06/19/2020 REASON FOR FOLLOWUP: Right upper extremity pain and swelling and question of cellulitis. INTERVAL HISTORY: The patient is currently afebrile. The patient is breathing comfortably. The patient's pain and discomfort to the right wrist and hand has slightly decreased. No chest pain or cough. No abdominal pain. No diarrhea. PHYSICAL EXAMINATION: Blood pressure 114/62 with a pulse of 64, temperature 98.2. She is 93% on room air. General description is an elderly female up in the chair in no distress. RESPIRATORY SYSTEM: Unlabored breathing, clear to auscultation anteriorly. HEART: S1, S2. Regular rate and rhythm. ABDOMEN: Soft, no tenderness. Right wrist area some swelling no significant redness or any drainage. LABS: Hemoglobin 9.9, white count 3.8, BUN of 21, creatinine 1.05. DIAGNOSTIC IMPRESSION AND PLAN: Patient with right forearm and wrist area pain and swelling. Concern for possible pseudogout versus cellulitis, clinically doubt septic arthritis. The patient is on cefazolin and steroids; to continue and monitor clinical course closely. MMODL / IJN: [id number] /
[2020-06-20] MEDS: DEXAMETHASONE SOD PHOSPHATE 4 MG/ML 1 ML VIAL IV SCH ×2 (03:26→09:32)
[2020-06-20] MEDS: LEVOTHYROXINE 50 MCG TAB PO SCH (05:34)
[2020-06-20 08:57] LABS: INR 1.9 (<1.2); Prothrombin Time 18.1 sec (9.0-12.0)
[2020-06-20 09:23] VITALS: BP 113/64; PULSE 84; RESP 16; TEMP 97.6
[2020-06-20] MEDS: DIGOXIN 125 MCG TAB PO SCH (09:32)
[2020-06-20] MEDS: MULTIVITAMINS, THERA 1 EACH TAB PO SCH (09:32)
[2020-06-20] MEDS: METOPROLOL TARTRATE 25 MG TAB PO SCH (09:32)
[2020-06-20] MEDS: CALCIUM CARB-VIT D 500MG-200UN 1 EACH TAB PO SCH (09:32)
--- NOTE | 2020-06-20 11:39 | P.PN ---
Subjective Progress Note Date: 06/20/20 Principal diagnosis: Right wrist pain and elbow pain Patient was examined today at bedside,she is doing a lot better today. That discomfort throughout the wrist and elbow is essentially gone. She is continuing to utilize the brace. She has been receiving the 4 mg Decadron every 6 hours. She denies any fevers or chills at this time. Eyes any shortness of breath or chest pain. Objective - Vital Signs Vital signs: Vital Signs Temp 97.6 F 06/20/20 09:20 Pulse 84 06/20/20 09:20 Resp 16 06/20/20 09:20 BP 113/64 06/20/20 09:20 Pulse Ox 94 L 06/20/20 09:20 Intake & Output 06/19/20 06/20/20 06/20/20 18:59 06:59 18:59 Intake Total 50 Balance 50 Intake: Intake, IV Titration 50 Amount ceFAZolin 2 gm In Sodium 50 Chloride 0.9% 50 ml @ 100 mls/hr IVPB Q8HR [facility] Rx# :[id number] Other: Voiding Method Toilet Toilet # Voids 1 1 - Exam Right upper extremity: Erythema throughout the hand and wrist along with forearm is much improved Discomfort surrounding the elbow and hand and wrist with palpation is much improved, the swelling is notably also Sensory exam to light touch is intact about the extremity Radial pulse and ulnar pulse 2+ - Labs CBC & Chem 7: 06/19/20 09:30 06/19/20 09:30 Labs: Abnormal Lab Results - Last 24 Hours (Table) 06/20/20 Range/Units 08:39 PT 18.1 H (9.0-12.0) sec INR 1.9 H (<1.2) Microbiology - Last 24 Hours (Table) 06/18/20 12:12 Blood Culture - Preliminary Blood No Growth after 24 hours Assessment and Plan Assessment: Right wrist and elbow pain and swelling Right/elbow wrist inflammatory arthropathy Other medical comorbidities Plan: With the patient's symptoms improving on current treatment, this helps confirm the inflammatory arthropathy. She has continued to show no obvious signs of a infection involving the wrist, forearm or elbow. Plan will be for a tapering dose of oral steroids at discharge Infectious disease recommendations Internal medicine recommendations Our office information will be provided for the patient follow-up on an as- needed basis. Time with Patient: Less than 30
--- NOTE | 2020-06-20 12:50 | PN ---
PROGRESS NOTE DATE OF SERVICE: 06/20/2020 REASON FOR FOLLOWUP: Right wrist and forearm pain and swelling and question of pseudogout versus cellulitis. INTERVAL HISTORY: The patient is currently afebrile. The patient is feeling much better. The patient right hand and forearm pain and swelling has improved. She did have a small movement of the right wrist area currently with no open wound. No chest pain. No shortness of breath or cough. No abdominal pain, no diarrhea. PHYSICAL EXAMINATION: Blood pressure 113/64, pulse of 84, temperature 97.6. She is 94% on room air. General description is an elderly female, up in the bed in no distress. RESPIRATORY SYSTEM: Unlabored breathing, clear to auscultation anteriorly. HEART: S1, S2. Regular rate and rhythm. ABDOMEN: Soft, no tenderness. Right wrist and hand area swelling and redness has much improved. No open wound or any drainage. LABS: INR is 1.9. DIAGNOSTIC IMPRESSION AND PLAN: Patient with right wrist pain, pseudogout versus cellulitis, clinically not behaving as septic arthritis. Overall improvement on the steroid as well as cefazolin and give a short course of oral Keflex on discharge. MMODL / IJN: [id number] /
--- NOTE | 2020-06-20 14:01 | CDI ---
Documentation Clarification Form Date: 06/20/2020 01:50:15 PM From: Coretta ElderLongoMORIS, CCDS Admit Date: 06/20/2020 09:00:00 AM Patient Name: Ronda Ascencio Visit Number: [id number] Discharge Date: 06/20/2020 01:15:00 PM ATTENTION: The Clinical Documentation Specialists (CDI) and [facility] Coding Staff appreciate your assistance in clarifying documentation. Please respond to the clarification below the line at the bottom and electronically sign. The CDI & [facility] Coding staff will review the response and follow-up if needed. Please note: Queries are made part of the Legal Health Record. If you have any questions, please contact the author of this message via ITS. Dr. Theresa Quinteros: The patients principal diagnosis has not been clearly identified and requires clarification. Per the Attending History & Physical on 06/18 and subsequent Progress Notes: Septic Arthritis Right Wrist Per the 06/18 Orthopedic Consult & subsequent Progress Notes: Inflammatory Arthropathy. 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 Clinical Indicators: Presented to the ED on 06/18 with pain, swelling & redness to right wrist, seen previously at [facility] [place] & started on antibiotics. Admitted to Observation status on 06/18, Inpatient status on 06/20 & discharged. VS 06/18: stable. VS 06/20: T 97.3* LAB 06/18: WBC 4.9, Neut 3.6, ESR 62^, PT 26.8^, INR 2.8^, APTT 37.0^, Na 136^, BUN 21^, CRP 51.3^ LAB 06/20: PT 18.1^, INR 1.9^ RAD 06/18: Rt Wrist: Findings could be related to crystal deposition arthropathy, osteoarthritis. Treatment 06/18: IV Morphine, IV Zofran, IV Dilaudid, IV Zosyn, IV Vancomycin. 06/19: IV Cefazolin, IV Decadron. In your professional opinion, can you please clarify which diagnosis, after study, accounted for the patients presenting symptoms and was the reason chiefly responsible for the admission? Septic Arthritis Right Wrist Inflammatory Arthropathy Right Wrist Pseudocyst Right Wrist Other, please specify: Unable to determine (Last Revision: November 2017) Inflammatory arthropathy of the right wrist MTDD
--- NOTE | 2020-06-20 17:16 | P.DS ---
Providers Date of admission: 06/20/20 09:00 Attending physician: Willem Grace Consults: 06/18/20 14:53 Consult Physician Urgent Consulting Provider: Kali Anderson Consult Reason/Comments: rule out septic arthritis Do you want consulting provider notified?: Yes Consult Physician Urgent Consulting Provider: Betina Vital Consult Reason/Comments: septic arthritis Do you want consulting provider notified?: Yes Primary care physician: Irene Arevalo - Discharge Diagnosis(es) (1) Arthropathy Arthropathy of the wrist inflammatory in nature Status: Acute (2) Coagulopathy Secondary to Coumadin anticoagulant positive Status: Acute (3) Hypertension Continue outpatient regiment and titrate as needed Status: Acute Hospital Course: The patient is a 79 atrophia with history of lupus anticoagulant on Coumadin presented with 4 days of rest pain. The patient was seen in urgent care and given clindamycin and wrist pain was not improving. She was using a brace as needed.. The patient was hospitalized and seen by orthopedics and infectious disease. The patient instructed with IV Ancef pending cultures. After being seen by orthopedic surgery with a seated patient did not appear to have septic arthritis look more like a inflammatory arthropathy. The patient was given a trial of steroids for pain and swelling improved. She was seen by me today she had no complaints she'll be discharged home with a Decadron taper. Time spent 32 minutes Patient Condition at Discharge: Fair Plan - Discharge Summary Discharge Rx Participant: No New Discharge Prescriptions: New methylPREDNISolone Dose Pack [Medrol Dose Pack] 4 mg PO DIRECTED #21 package No Action Warfarin [Coumadin] 5 mg PO Q48H Levothyroxine Sodium [Synthroid] 50 mcg PO DAILY Lansoprazole [Prevacid] 30 mg PO AC-SUPPER Calcium Carb-Vit D 500Mg-200Un [Oscal 500+D] 1 tab PO BID Digoxin [Lanoxin] 125 mcg PO DAILY Multivitamins, Thera [Multivitamin (formulary)] 1 tab PO DAILY Ipratropium-Albuterol Nebulize [Duoneb 0.5 mg-3 mg/3 ml Soln] 3 ml INHALATION RT-BID PRN PRN Reason: Shortness Of Breath clindamycin HCL [Cleocin] 300 mg PO TID Metoprolol Tartrate [Lopressor] 37.5 mg PO BID Discharge Medication List Calcium Carb-Vit D 500Mg-200Un [Oscal 500+D] 1 tab PO BID 01/22/14 [History] Digoxin [Lanoxin] 125 mcg PO DAILY 01/22/14 [History] Lansoprazole [Prevacid] 30 mg PO AC-SUPPER 01/22/14 [History] Levothyroxine Sodium [Synthroid] 50 mcg PO DAILY 01/22/14 [History] Warfarin [Coumadin] 5 mg PO Q48H 01/22/14 [History] Multivitamins, Thera [Multivitamin (formulary)] 1 tab PO DAILY 02/05/17 [History] Ipratropium-Albuterol Nebulize [Duoneb 0.5 mg-3 mg/3 ml Soln] 3 ml INHALATION RT-BID PRN 08/15/17 [History] Metoprolol Tartrate [Lopressor] 37.5 mg PO BID 06/18/20 [History] clindamycin HCL [Cleocin] 300 mg PO TID 06/18/20 [History] methylPREDNISolone Dose Pack [Medrol Dose Pack] 4 mg PO DIRECTED #21 package 06/20/20 [Rx] Follow up Appointment(s)/Referral(s): Irene Arevalo MD [Primary Care Provider] - 1-2 days Kali Anderson MD [STAFF PHYSICIAN] - As Needed Patient Instructions/Handouts: Septic Arthritis (DC), Arthritis (DC) Discharge Disposition: HOME SELF-CARE
[2020-06-20] MEDS ORDERED: WARFARIN 2.5 MG TAB PO ONE (18:00)
== END 2020-06-20 13:15 | disposition home or self-care (01) | DRG 554 ==
LOC: EC 10:42 → 1SOBS 15:13 → OBSVTOIN 06-20 09:00
PROVIDERS: ADMIT Internal Medicine; ATTEND Internal Medicine
DX: M12.831 Other specific arthropathies, not elsewhere classified, right wrist (principal); D68.9 Coagulation defect, unspecified; D68.62 Lupus anticoagulant syndrome; T45.515A Adverse effect of anticoagulants, initial encounter; J44.9 Chronic obstructive pulmonary disease, unspecified; I48.91 Unspecified atrial fibrillation; E03.9 Hypothyroidism, unspecified; I10 Essential (primary) hypertension; M19.90 Unspecified osteoarthritis, unspecified site; Z90.49 Acquired absence of other specified parts of digestive tract; Z98.49 Cataract extraction status, unspecified eye; Z98.890 Other specified postprocedural states; Z88.8 Allergy status to other drugs, medicaments and biological substances; Z91.041 Radiographic dye allergy status; Z79.01 Long term (current) use of anticoagulants; Z79.890 Hormone replacement therapy; Z79.899 Other long term (current) drug therapy; Z86.718 Personal history of other venous thrombosis and embolism; Z86.14 Personal history of Methicillin resistant Staphylococcus aureus infection; Z86.711 Personal history of pulmonary embolism
CPT/HCPCS: 36415; 80048; 80053; 83605; 84550; 85025; 85610; 85652; 85730; 86140; 87040; 96374; 96375; 99285

== ENCOUNTER 2021-03-08 13:22 | Emergency (ER) | payer MEDICARE, BC ==
[2021-03-08 13:27] VITALS: BP 146/72; PULSE 72; RESP 20; TEMP 97.6
[2021-03-08] MEDS: MORPHINE SULFATE 2 MG/ML SYRINGE IM STA (14:05)
--- NOTE | 2021-03-08 14:06 | XR ---
EXAMINATION TYPE: XR Hip LT and AP Pelvis DATE OF EXAM: 03/08/2021 COMPARISON: NONE HISTORY: Pain TECHNIQUE: A single AP view of the pelvis is obtained. Two views of the left hip are obtained. FINDINGS: There is use osteopenia and degenerative changes spine and arthropathy of the hips. Sclero tic changes involving the head of both femur may represent osteonecrosis and MRI suggested. Calcifica tions the pelvis are nonspecific. Visualized bowel gas pattern nonspecific. Vascular calcifications n oted. IMPRESSION: 1. 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 Recommend bilatera l hip MRI.
--- NOTE | 2021-03-08 14:48 | ED ---
General Adult HPI - General Chief complaint: Extremity Problem,Nontraumatic Stated complaint: Groin pain Time Seen by Provider: 03/08/21 13:29 Source: patient, family Mode of arrival: wheelchair Limitations: no limitations - History of Present Illness Initial comments: 80-year-old female with a past medical history of atrial fibrillation, COPD, DVT, PE presents to the emergency room for left hip pain. Patient reports that a few days ago she will cup and had left groin pain. States that it hurts to stand on and to flex her hip. States it now hurts in her lateral left hip as well. States she can walk on it but has to limp and use something as a crutch. Patient states she has not had problems with this hip before but does have joint problems in general and rheumatoid arthritis.Patient has no other complaints at this time including shortness of breath, chest pain, abdominal pain, nausea or vomiting, headache, or visual changes. - Related Data Home Medications Medication Instructions Recorded Confirmed Calcium Carb-Vit D 500Mg-5Mcg 1 tab PO BID 01/22/14 06/18/20 [Oscal 500+D] Digoxin [Lanoxin] 125 mcg PO DAILY 01/22/14 06/18/20 Lansoprazole [Prevacid] 30 mg PO AC-SUPPER 01/22/14 06/18/20 Levothyroxine Sodium [Synthroid] 50 mcg PO DAILY 01/22/14 06/18/20 Warfarin [Coumadin] 5 mg PO Q48H 01/22/14 06/18/20 Multivitamins, Thera [Multivitamin 1 tab PO DAILY 02/05/17 06/18/20 (formulary)] Ipratropium-Albuterol Nebulize 3 ml INHALATION RT-BID PRN 08/15/17 06/18/20 [Duoneb 0.5 mg-3 mg/3 ml Soln] Metoprolol Tartrate [Lopressor] 37.5 mg PO BID 06/18/20 06/18/20 clindamycin HCL [Cleocin] 300 mg PO TID 06/18/20 06/18/20 Previous Rx's Medication Instructions Recorded methylPREDNISolone Dose Pack 4 mg PO DIRECTED #21 package 06/20/20 [Medrol Dose Pack] Allergies Allergy/AdvReac Type Severity Reaction Status Date / Time Iodinated Contrast Media Allergy Rash/Hives Verified 03/08/21 13:27 [Iodinated Contrast Media - Oral and] theophylline Allergy Anaphylaxis Verified 03/08/21 13:27 Review of Systems ROS Statement: Those systems with pertinent positive or pertinent negative responses have been documented in the HPI. ROS Other: All systems not noted in ROS Statement are negative. Past Medical History Past Medical History: Atrial Fibrillation, COPD, Deep Vein Thrombosis (DVT), Osteoarthritis (OA), Pulmonary Embolus (PE), Thyroid Disorder History of Any Multi-Drug Resistant Organisms: MRSA Date of last positivie culture/infection: 2012 MDRO Source:: EYES Past Surgical History: Cholecystectomy, Orthopedic Surgery Additional Past Surgical History / Comment(s): CARPAL TUNNEL, CATARACT, right shoulder Past Psychological History: No Psychological Hx Reported Smoking Status: Never smoker Past Alcohol Use History: Occasional Past Drug Use History: None Reported General Exam Limitations: no limitations General appearance: alert, in no apparent distress Head exam: Present: atraumatic, normocephalic, normal inspection Eye exam: Present: normal appearance, PERRL, EOMI. Absent: scleral icterus, conjunctival injection, periorbital swelling ENT exam: Present: normal exam Neck exam: Present: normal inspection, full ROM. Absent: tenderness Respiratory exam: Present: normal lung sounds bilaterally. Absent: respiratory distress, wheezes Cardiovascular Exam: Present: regular rate, normal rhythm, normal heart sounds GI/Abdominal exam: Present: soft, normal bowel sounds. Absent: distended, tenderness Extremities exam: Present: tenderness (Tenderness to the lateral left hip. No tenderness in the groin. No bulging in the groin.), normal capillary refill (Capillary refill less than 2 seconds, DVT pulse 2+ lower extremity), other (Sensation intact before extremity). 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 With osteopenia. No subarticular collapse or displaced fracture. On reevaluation patient had significant improvement in symptoms currently rating her pain at a 1 out of 10 after pain medication. Patient was referred to orthopedics. Patient was given Tylenol 3 for pain for home. Both daughter and patient are aware of increased risk of falls with Tylenol 3 and daughter states she will stay with her or her other sister well. Patient will return here for any worsening symptoms. Disposition Clinical Impression: Hip pain, left Disposition: HOME SELF-CARE Condition: Good Instructions (If sedation given, give patient instructions): Hip Pain (ED) Additional Instructions: Please take Tylenol for pain. If pain is severe take Tylenol [address] operate machinery while taking this. Remember Tylenol 3 can increase risk of falls. Follow-up with your doctor. Return to the emergency room for any worsening symptoms. Is patient prescribed a controlled substance at d/c from ED?: No Referrals: Irene Arevalo MD [Primary Care Provider] - 1-2 days Bernard Renteria DO [Doctor of Osteopathic Medicine] - 1-2 days Time of Disposition: 15:57
--- NOTE | 2021-03-08 15:20 | CT ---
EXAMINATION TYPE: CT hip LT wo con DATE OF EXAM: 03/08/2021 COMPARISON: Radiograph same day HISTORY: 80-year-old female left hip pain TECHNIQUE: Contiguous axial scanning of the left hip without IV contrast. Coronal and sagittal recons tructions performed. 3-D reconstructions generated by a dedicated independent workstation. CT DLP: 534.8 mGycm Automated exposure control for dose reduction was used. FINDINGS: There is diffuse osteopenia. Within the intraabdominal and intrapelvic space, sigmoid diverticulosis. Mild degenerative change of both hips. There is focal subarticular sclerosis along the anterior weigh tbearing aspect of the femoral head 2.7 cm AP and 1.9 cm wide. No subarticular collapse is seen. No s izable joint effusion. IMPRESSION: 1. 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 CORRELATE FOR PATIENT'S RISK FACT ORS. RADIOGRAPH SHOWS SIMILAR PROCESS ON THE CONTRALATERAL SIDE. 2. OSTEOPENIA. NO SUBARTICULAR COLLAPSE OR DISPLACED FRACTURE. 3. INCIDENTAL SIGMOID DIVERTICULOSIS.
[2021-03-08] MEDS: ACET/COD 300 MG/30 MG STARTER PACK 6 TAB BTL PO STA (16:01)
== END 2021-03-08 16:13 | disposition home or self-care (01) ==
LOC: EC 13:22
DX: M85.852 Other specified disorders of bone density and structure, left thigh (principal); R10.32 Left lower quadrant pain; E07.9 Disorder of thyroid, unspecified; I48.91 Unspecified atrial fibrillation; J44.9 Chronic obstructive pulmonary disease, unspecified; Z88.8 Allergy status to other drugs, medicaments and biological substances; Z91.041 Radiographic dye allergy status; Z79.890 Hormone replacement therapy; Z79.899 Other long term (current) drug therapy
CPT/HCPCS: 99284; 96372; 73502; 73700; J2270

== ENCOUNTER → 2022-02-12 | Outpatient (CLI) | payer MEDICARE, BC ==
[2022-02-12 15:16] LABS: Chol/HDL Ratio 3.11 Ratio; LDL Cholesterol,Calculated 59.1 mg/dL (0.0-131.0)
== END | disposition home or self-care (01) ==
LOC: LABWHC1 08:38
PROVIDERS: ATTEND Family Medicine
DX: S33.5XXA Sprain of ligaments of lumbar spine, initial encounter (principal); E03.9 Hypothyroidism, unspecified; W19.XXXA Unspecified fall, initial encounter
CPT/HCPCS: 36415; 80061

== ENCOUNTER 2022-08-13 09:35 | Day surgery (SDC) | payer MEDICARE, BC ==
[2022-08-11 11:48] VITALS: BMI 25.9
[~2022-08-13 09:35] MED LIST changes: +ALPRAZolam 0.25 MG TAB PO PRN; +ALPRAZolam 0.5 MG TAB PO PRN; +ASPIRIN 325 MG TAB PO ONE; +ATORVASTATIN 80 MG TAB PO ONE; -DENOSUMAB 60 MG/ML 1 ML SYRINGE SQ ONE; +HEPARIN SODIUM,PORCINE 10,000 UNIT in SODIUM CHLORIDE 0.9% 1,000 ML IRRIGATION PRN; +HEPARIN SODIUM,PORCINE 2,500 UNIT in SODIUM CHLORIDE 0.9% 250 ML IRRIGATION PRN; +NITROGLYCERIN SL TABS 0.4 MG TAB SUBLINGUAL PRN; +SODIUM CHLORIDE 0.9% 1,000 ML in EMPTY BAG 1 BAG IV ONE
[2022-08-13] MEDS ORDERED: SODIUM CHLORIDE 0.9% 1,000 ML IV ONE (10:25)
[2022-08-13] MEDS ORDERED: ASPIRIN 325 MG TAB PO ONE (10:28)
[2022-08-13 10:44] LABS: Basophils % (A) 0 %; Eosinophils # (A) 0.2 k/uL (0-0.7); Eosinophils % (A) 5 %; HCT 33.4 % (34.0-46.0); HGB 11.1 gm/dL (11.4-16.0); Hypochromasia Moderate; Lymphocytes # (A) 0.6 k/uL (1.0-4.8); Lymphocytes % (A) 18 %; MCH 30.3 pg (25.0-35.0); MCHC 33.2 g/dL (31.0-37.0); MCV 91.4 fL (80.0-100.0); Mean Platelet Volume 8.8; Monocytes # (A) 0.2 k/uL (0-1.0); Monocytes % (A) 6 %; Neutrophils # (A) 2.2 k/uL (1.3-7.7); Neutrophils % (A) 67 %; Platelet Count 153 k/uL (150-450); RBC 3.65 m/uL (3.80-5.40); RDW 14.3 % (11.5-15.5); WBC 3.2 k/uL (3.8-10.6)
[2022-08-13 10:59] LABS: INR 1.4 (<1.2); Prothrombin Time 13.9 sec (9.0-12.0)
[2022-08-13] MEDS ORDERED: VERAPAMIL 2.5 MG/ML 2 ML AMP ONE (14:21)
[2022-08-13] MEDS ORDERED: HEPARIN SODIUM 1,000 UN/ML (10ML VL) ONE (14:32)
[2022-08-13] MEDS ORDERED: MIDAZOLAM 2 MG/2 ML VIAL IVP ONE (14:37)
[2022-08-13] MEDS ORDERED: LIDOCAINE 1% INJ 10MG/ML (5 ML VIAL-PF) SQ ONE ×2 (14:37→14:43)
[2022-08-13] MEDS ORDERED: LIDOCAINE 1% INJ 10MG/ML (5 ML VIAL-PF) IV ONE (14:37)
[2022-08-13] MEDS ORDERED: HEPARIN SODIUM 1,000 UN/ML (10ML VL) IV ONE (14:52)
[2022-08-13] MEDS ORDERED: IOPAMIDOL-370 125ML BTL INJ ONE (15:07)
[2022-08-13] MEDS ORDERED: RX INFO: IV CONTRAST WAS GIVEN 1 EACH MISC MISCELLANE PRN (15:10)
[2022-08-13] MEDS ORDERED: SODIUM CHLORIDE 0.9% 1,000 ML IV SCH (15:15)
--- NOTE | 2022-08-13 15:18 | P.PCN ---
Date of Procedure: 08/13/22 Operative Findings: CARDIAC CATHETERIZATION PERFORMING PHYSICIAN: Ki Lawrence MD, RPVI PROCEDURE PERFORMED: 1. Selective right and left coronary angiogram 2. Left heart catheterization 3. iFR of the RCA and also of the left main 4. Right common femoral artery in February INDICATION: This is an 81-year-old female patient with hypertension and dyslipidemia was seen in the office recently for shortness of breath and chest discomfort. She underwent myocardial perfusion imaging stress test and that came in to be abnormal showing distal inferior wall reversibility/ischemia. In the light of that heart catheterization was advised COMPLICATION: None APPROACH: Right common femoral artery LEVEL OF SEDATION: Moderate with sedation length of 32 minutes PROCEDURE DESCRIPTION: After obtaining an informed consent, the patient was brought to cardiac oil laboratory analyst. Local anesthesia was performed using lidocaine subcutaneously. The right common femoral artery was cannulated using Seldinger technique, the guidewire passed easily, following that we advanced a 6 Cameroonian sheath dilator assembly, the wire and dilator were removed and sheath was flushed. Selective right and left coronary angiogram using a 6-Cameroonian JR4 and JL catheters. Following that we did left heart catheterization using 6-Cameroonian pigtail catheter. The procedure was completed there was no complication. SELECTIVE CORONARY ANGIOGRAM: The right coronary artery: Large caliber vessel as a dominant vessel. The RCA is calcified. The mid RCA has intermediate lesion appears to be in the range of 40-50%. Identified on the WOODY view. FFR was performed and came in to be nonischemic Left main: Distal left main has a lesion appeared to be in the range of 40-50% as well. I did an FFR of the left main and that came in to be nonischemic as well. It gives rises into an LCx and LAD The left circumflex: Moderate caliber vessel nondominant vessel. The LCx has mild diffuse disease only. The left anterior descending artery: The proximal LAD appeared to have mild disease only. Gives rises into the first diagonal branch which has an ostial lesion appears to be in the range of 50%. The mid LAD after the bifurcation of the second diagonal branch has a lesion appeared to be in the range of 40-50%. The LAD distally appears to be angiographically normal. HEMODYNAMICS: The LVEDP was 20 mmHg was no significant gradient across aortic valve iFR OF THE LM AND RCA: Anticoagulation was initiated using heparin with continuous ACT monitoring. Subsequently after zeroing the Doppler wire and equalizing between the Doppler wire and the guiding catheter which was initially JL4 guiding catheter I did wire the left main to the LAD. We did the measurement of the iFR came in to be an 0.94. Then after that I did equalizing between the Doppler wire and the guiding catheter for the right which was JR4 guiding catheter and subsequently eye wired the right and did iFR which came in to be also nonischemic 0.96. CONCLUSION: 1. Intermediate disease involving the mid RCA. I did iFR and that came in to be nonischemic 0.94 2. Intermediate disease involving the distal left main as well. I did also iFR and that came in to be nonischemic 0.96 3. . The left sided filling pressure POSTPROCEDURE MANAGEMENT: Medical treatment and follow-up with the patient
[2022-08-13 17:02] VITALS: TEMP 97.9
[2022-08-13 18:28] VITALS: BP 147/68; PULSE 71; RESP 16
== END 2022-08-13 20:47 | disposition home or self-care (01) ==
LOC: CATHCVL 09:35 → 6NMEDSUR 15:15 → CATHCVL 20:47
PROVIDERS: ATTEND Internal Medicine Interventional Cardiology
DX: I48.0 Paroxysmal atrial fibrillation (principal); I10 Essential (primary) hypertension; E78.5 Hyperlipidemia, unspecified; F17.210 Nicotine dependence, cigarettes, uncomplicated; Z86.718 Personal history of other venous thrombosis and embolism; Z79.899 Other long term (current) drug therapy
CPT/HCPCS: 93458; 93799; 85025; 85610; C1760; C1887 ×2; C1769 ×3; C1894; J2250; J2001; J1644; Q9967

== ENCOUNTER 2023-02-14 14:09 | Inpatient (IN) | payer MEDICARE, BC ==
[2023-02-14] MEDS ORDERED: MORPHINE SULFATE 2 MG/ML SYRINGE IVP STA (14:30)
--- NOTE | 2023-02-14 14:44 | ED ---
General Adult HPI - General Chief complaint: Back Pain/Injury Stated complaint: back pain Time Seen by Provider: 02/14/23 14:18 Source: patient, RN notes reviewed Mode of arrival: ambulatory - History of Present Illness Initial comments: Patient is an 82-year-old female presenting to the emergency room with complaints of substernal/epigastric region pain along with left scapular pain which both began at the same time approximately 2-1/2 days ago on . She reports that she woke with the pain and does not recall any triggering events. She states that the pain is worse with movement and worse with palpation to specific locations at the bottom of her sternum and along the left scapula. She denies any changes in her chronic shortness of breath. She denies any typical chest pain, orthopnea, abdominal pain not related to epigastric pain as stated above, nausea, vomiting, diaphoresis, headache, dizziness, fevers or chills. She is on warfarin for a history of atrial fibrillation, DVT, pulmonary emboli along with lupus hypercoagulability disorder. She denies taking any medication for her pain. She denies any range of motion impairment of her left shoulder. In addition to her A. 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 - Related Data Home Medications Medication Instructions Recorded Confirmed Calcium Carb-Vit D 500Mg-5Mcg 1 tab PO BID 01/22/14 02/14/23 [Oscal 500+D 5 Mcg (200 Iu)] Lansoprazole [Prevacid] 30 mg PO AC-BRKFST 01/22/14 02/14/23 Levothyroxine Sodium [Synthroid] 50 mcg PO AC-BRKFST 01/22/14 02/14/23 Metoprolol Tartrate [Lopressor] 37.5 mg PO BID 06/18/20 02/14/23 Albuterol Nebulized [Ventolin 2.5 mg INHALATION RT-QID PRN 02/14/23 02/14/23 Nebulized] Multivit-Min/FA/Lycopen/Lutein 1 tab PO DAILY 02/14/23 02/14/23 [Centrum Silver Tablet] Warfarin [Coumadin] 3 mg PO MOWETH@2100 02/14/23 02/14/23 Warfarin [Coumadin] 4.5 mg PO BERRY@2100 02/14/23 02/14/23 Allergies Allergy/AdvReac Type Severity Reaction Status Date / Time Iodinated Contrast Media Allergy hives Verified 02/14/23 17:14 [Iodinated Contrast Media - Oral and] theophylline Allergy Unknown Verified 02/14/23 17:14 Review of Systems ROS Statement: Those systems with pertinent positive or pertinent negative responses have been documented in the HPI. ROS Other: All systems not noted in ROS Statement are negative. 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 Date of last positivie culture/infection: 2012 MDRO Source:: EYES Past Surgical History: Cholecystectomy, Orthopedic Surgery, Tonsillectomy Additional Past Surgical History / Comment(s): CARPAL TUNNEL, CATARACT, right shoulder Past Anesthesia/Blood Transfusion Reactions: No Reported Reaction Additional Past Anesthesia/Blood Transfusion Reaction / Comment(s): no problems with prior blood transfusion Past Psychological History: No Psychological Hx Reported Smoking Status: Never smoker Past Alcohol Use History: Occasional Past Drug Use History: None Reported - Past Family History Father Family Medical History: Cancer Brother(s) Family Medical History: Cancer General Exam General appearance: alert, in no apparent distress Head exam: Present: atraumatic, normocephalic, normal inspection Eye exam: Present: normal appearance. Absent: scleral icterus, conjunctival injection, periorbital swelling, periorbital tenderness ENT exam: Present: normal exam, mucous membranes moist Neck exam: Present: normal inspection, full ROM Respiratory exam: Present: normal lung sounds bilaterally. Absent: respiratory distress, wheezes, rales, rhonchi, stridor Cardiovascular Exam: Present: regular rate, normal rhythm, normal heart sounds. Absent: systolic murmur, diastolic murmur, rubs, gallop, clicks GI/Abdominal exam: Present: soft, tenderness (epigastric region), normal bowel sounds. Absent: distended, guarding, rebound, rigid Extremities exam: Present: normal inspection. Absent: pedal edema, joint swelling Left Shoulder Exam: Present: full ROM, tenderness (scapular patch tenderness with muscle spasms noted). Absent: swelling, abrasion, laceration, ecchymosis, def ormity, crepitus, dislocation, erythema, tenderness over AC joint Vascular: Absent: vascular compromise Back exam: Present: normal inspection, full ROM Neurological exam: Present: alert, oriented X3, CN II-XII intact Psychiatric exam: Present: normal affect, normal mood Skin exam: Present: warm, dry, intact, normal color. Absent: rash Course Vital Signs 02/14/23 02/14/23 02/14/23 14:14 15:00 16:21 Temperature 98.0 F Pulse Rate 66 61 60 Respiratory 20 20 18 Rate Blood Pressure 155/76 178/80 137/67 O2 Sat by Pulse 95 99 98 Oximetry Medical Decision Making - Medical Decision Making Was pt. sent in by a medical professional or institution (, PA, CONTRACT ADMIN, urgent care, hospital, or senior care...) When possible be specific @ -No Did you speak to anyone other than the patient for history (EMS, parent, family, police, friend...)? What history was obtained from this source @ -No Did you review nursing and triage notes (agree or disagree)? Why? @ -I reviewed and agree with nursing and triage notes except pain on average of left scapula and also having pain in the lower sternum/epigastric region both pain began at the same time. Were old charts reviewed (outside hosp., previous admission, EMS record, old EKG, old radiological studies, urgent care reports/EKG's, senior care records)? Report findings @ -Yes, previous EKG from 2018 along with cardiac cath report from 08/13/2022 reviewed. Differential Diagnosis (chest pain, altered mental status, abdominal pain women, abdominal pain men, vaginal bleeding, weakness, fever, dyspnea, syncope, headache, dizziness, GI bleed, back pain, seizure, CVA, palpatations, mental health, musculoskeletal)? @ -Differential Musculoskeletal Muscular strain, contusion, ligament sprain, fracture, arthritis, septic arthrit is, bursitis, cellulitis, muscle spasm, nerve compression, DVT, arterial occlusion, herpes zoster, electrolyte abnormality, tumor.... This is not meant to be in all inclusive list Differential Chest Pain: Stable Angina, Unstable Angina, STEMI, NSTEMI Aortic Dissection, Pneumothorax, Musculoskeletal, Esophageal Spasm GERD, Cholecystitis, Pancreatitis, Zoster, this is not meant to be an all-inclusive list. EKG interpreted by me (3pts min.). @ -Sinus rhythm with first-degree AV block and right bundle-branch block , ventricular rate 61 bpm, ME interval 213 ms, QRS duration 157 ms, QT/QTC 435/437 ms, PRT axes 36, 262, 74 X-rays interpreted by me (1pt min.). @ -Chest x-ray: Cardiomegaly without any pleural effusion or consolidation. Per radiologist increased retrocardiac density consistent with known large hiatal hernia. CT interpreted by me (1pt min.). @ -None done U/S interpreted by me (1pt. min.). @ -None done What testing was considered but not performed or refused? (CT, X-rays, U/S, labs)? Why? @ -None What meds were considered but not given or refused? Why? @ -None Did you discuss the management of the patient with other professionals (professionals i.e. , PA, CONTRACT ADMIN, lab, RT, psych nurse, social service technician, flight crew scheduler, teacher, sanitation officer, case making machine operator)? Give summary @ -Yes, Spoke with Dr. Vila senior talent acquisition specialist for [facility] regarding patient presentation and workup with recommendation of admission of observation stay for further evaluation regarding atypical chest pain. He is accepting of admission and r ecommends cardiology consult; will place admission orders. Was smoking cessation discussed for >3mins.? @ -No Was critical care preformed (if so, how long)? @ -No Were there social determinants of health that impacted care today? How? (Homelessness, low income, unemployed, alcoholism, drug addiction, rosa sportation, low edu. Level, literacy, decrease access to med. care, [facility], rehab)? @ -No Was there de-escalation of care discussed even if they declined (Discuss DNR or withdrawal of care, Hospice)? DNR status @ -No What co-morbidities impacted this encounter? (DM, HTN, Smoking, COPD, CAD, Cancer, CVA, ARF, Chemo, Hep., AIDS, mental health diagnosis, sleep apnea, morbid obesity)? @ -Hx of CAD and PE Was patient admitted / discharged? Hospital course, mention meds given and route, prescriptions, significant lab abnormalities, going to OR and other pertinent info. @ -82 -year-old female presenting to the emergency room with complaints of substernal/epigastric region pain along with left scapular pain which both began at the same time approximately 2-1/2 days ago on . No trauma. She states that the pain is worse with movement and worse with palpation to specific locations at the bottom of her sternum and along the left scapula. Workup for atypical chest pain with EKG, CBC, troponin, magnesium, PT INR, d- dimer along with chest x-ray. EKG demonstrates sinus rhythm with first-degree AV block and right bundle-branch block. Laboratory studies reveal mild anemia with a hemoglobin of 11.3 and chronic leukocytosis with a WBC of 3.7. INR is therapeutic at 2.3. D-dimer normal. CMP reveals slightly elevated BUN at 20 otherwise no abnormalities. Magnesium normal. Troponin negative. Chest x-ray without any acute cardiopulmonary process; large hiatal hernia noted likely underlying source of atypical chest pain however due to high risk factors advised recommend observation stay for continued monitoring of symptoms and troponin levels. Meyl odonnell is agreeable to this plan. Spoke with Dr. Vila senior talent acquisition specialist for [facility] regarding patient presentation and workup with recommendation of admission of observation stay for further evaluation regarding atypical chest pain. He is accepting of admission and recommends cardiology consult. Will place admission orders along with pain control and cardiac consult. Will admit patient in stable condition to observation unit under the services for further evaluation and treatment of atypical chest pain and scapular pain. Undiagnosed new problem with uncertain prognosis? @ -No Drug Therapy requiring intensive monitoring for toxicity (Heparin, Nitro, Insulin, Cardizem)? @ -No Were any procedures done? @ -No Diagnosis/symptom? @ -Left scapular pain Acute, or Chronic, or Acute on Chronic? @ -Acute Uncomplicated (without systemic symptoms) or Complicated (systemic symptoms)? @ -Uncomplicated Side effects of treatment? @ -none Exacerbation, Progression, or Severe Exacerbation] @ -no Poses a threat to life or bodily function? @ -no Diagnosis/symptom? @ -Atypical chest pain Acute, or Chronic, or Acute on Chronic? @ -Acute Uncomplicated (without systemic symptoms) or Complicated (systemic symptoms)? @ -Uncomplicated Side effects of treatment? @ -No Exacerbation, Progression, or Severe Exacerbation? @ -No Poses a threat to life or bodily function? How? (Chest pain, [place], [place], pneumonia, PE, COPD, DKA, ARF, appy, cholecystitis, CVA, Diverticulitis, Homicidal, Suicidal, threat to staff... and all critical care pts) @ -Yes, history of pulmonary emboli and CAD high risk for atypical chest pain to be cardiovascular in nature. Case discussed with Dr. Us. - Lab Data Result diagrams: 02/14/23 14:53 02/14/23 14:53 Lab Results 02/14/23 02/14/23 02/14/23 Range/Units 14:53 14:53 14:53 WBC 3.7 L (3.8-10.6) k/uL RBC 3.79 L (3.80-5.40) m/uL Hgb 11.3 L (11.4-16.0) gm/dL Hct 34.3 (34.0-46.0) % MCV 90.6 (80.0-100.0) fL MCH 29.9 (25.0-35.0) pg MCHC 33.0 (31.0-37.0) g/dL RDW 14.2 (11.5-15.5) % Plt Count 156 (150-450) k/uL MPV 8.5 Neutrophils % 69 % Lymphocytes % 15 % Monocytes % 6 % Eosinophils % 6 % Basophils % 1 % Neutrophils # 2.6 (1.3-7.7) k/uL Lymphocytes # 0.6 L (1.0-4.8) k/uL Monocytes # 0.2 (0-1.0) k/uL Eosinophils # 0.2 (0-0.7) k/uL Basophils # 0.0 (0-0.2) k/uL Hypochromasia Slight PT 22.8 H (9.0-12.0) sec INR 2.3 H (<1.2) APTT 32.8 H (22.0-30.0) sec D-Dimer 0.31 (<0.60) mg/L FEU Sodium 139 (137-145) mmol/L Potassium 4.8 (3.5-5.1) mmol/L Chloride 107 (98-107) mmol/L Carbon Dioxide 25 (22-30) mmol/L Anion Gap 7 mmol/L BUN 20 H (7-17) mg/dL Creatinine 0.87 (0.52-1.04) mg/dL Est GFR (CKD-EPI)AfAm 71 (>60 ml/min/1.73 sqM) Est GFR (CKD-EPI)NonAf 62 (>60 ml/min/1.73 sqM) Glucose 91 (74-99) mg/dL Calcium 9.0 (8.4-10.2) mg/dL Magnesium 2.0 (1.6-2.3) mg/dL Total Bilirubin 0.3 (0.2-1.3) mg/dL AST 31 (14-36) U/L ALT 17 (4-34) U/L Alkaline Phosphatase 68 (38-126) U/L Troponin I (0.000-0.034) ng/mL Total Protein 7.2 (6.3-8.2) g/dL Albumin 3.8 (3.5-5.0) g/dL /04/01 Range/Units 14:53 WBC (3.8-10.6) k/uL RBC (3.80-5.40) m/uL Hgb (11.4-16.0) gm/dL Hct (34.0-46.0) % MCV (80.0-100.0) fL MCH (25.0-35.0) pg MCHC (31.0-37.0) g/dL RDW (11.5-15.5) % Plt Count (150-450) k/uL MPV Neutrophils % % Lymphocytes % % Monocytes % % Eosinophils % % Basophils % % Neutrophils # (1.3-7.7) k/uL Lymphocytes # (1.0-4.8) k/uL Monocytes # (0-1.0) k/uL Eosinophils # (0-0.7) k/uL Basophils # (0-0.2) k/uL Hypochromasia PT (9.0-12.0) sec INR (<1.2) APTT (22.0-30.0) sec D-Dimer (<0.60) mg/L FEU Sodium (137-145) mmol/L Potassium (3.5-5.1) mmol/L Chloride (98-107) mmol/L Carbon Dioxide (22-30) mmol/L Anion Gap mmol/L BUN (7-17) mg/dL Creatinine (0.52-1.04) mg/dL Est GFR (CKD-EPI)AfAm (>60 ml/min/1.73 sqM) Est GFR (CKD-EPI)NonAf (>60 ml/min/1.73 sqM) Glucose (74-99) mg/dL Calcium (8.4-10.2) mg/dL Magnesium (1.6-2.3) mg/dL Total Bilirubin (0.2-1.3) mg/dL AST (14-36) U/L ALT (4-34) U/L Alkaline Phosphatase (38-126) U/L Troponin I <0.012 (0.000-0.034) ng/mL Total Protein (6.3-8.2) g/dL Albumin (3.5-5.0) g/dL - Radiology Data Radiology results: report reviewed, image reviewed Disposition Clinical Impression: Pain of left scapula, Atypical chest pain Disposition: ADMITTED IP TO THIS [facility] Condition: Stable Referrals: Umair Estes MD [Primary Care Provider] - 1-2 days Time of Disposition: 16:05
[2023-02-14 15:04] LABS: Basophils % (A) 1 %; Eosinophils # (A) 0.2 k/uL (0-0.7); Eosinophils % (A) 6 %; HCT 34.3 % (34.0-46.0); HGB 11.3 gm/dL (11.4-16.0); Hypochromasia Slight; Lymphocytes # (A) 0.6 k/uL (1.0-4.8); Lymphocytes % (A) 15 %; MCH 29.9 pg (25.0-35.0); MCV 90.6 fL (80.0-100.0); Mean Platelet Volume 8.5; Monocytes # (A) 0.2 k/uL (0-1.0); Monocytes % (A) 6 %; Neutrophils # (A) 2.6 k/uL (1.3-7.7); Neutrophils % (A) 69 %; Platelet Count 156 k/uL (150-450); RBC 3.79 m/uL (3.80-5.40); RDW 14.2 % (11.5-15.5); WBC 3.7 k/uL (3.8-10.6)
[2023-02-14 15:26] LABS: ALT 17 U/L (4-34); AST 31 U/L (14-36); African American GFR (CKD) 71 (>60 ml/min/1.73 sqM); Albumin 3.8 g/dL (3.5-5.0); Alkaline Phosphatase 68 U/L (38-126); Anion Gap 7 mmol/L; Blood Urea Nitrogen 20 mg/dL (7-17); Carbon Dioxide 25 mmol/L (22-30); Chloride 107 mmol/L (98-107); Glucose 91 mg/dL (74-99); Non-African American GFR(CKD) 62 (>60 ml/min/1.73 sqM); Potassium 4.8 mmol/L (3.5-5.1); Sodium 139 mmol/L (137-145); Total Bilirubin 0.3 mg/dL (0.2-1.3); Total Protein 7.2 g/dL (6.3-8.2)
[2023-02-14 15:27] LABS: INR 2.3 (<1.2); Partial Thromboplastin Time 32.8 sec (22.0-30.0); Prothrombin Time 22.8 sec (9.0-12.0)
--- NOTE | 2023-02-14 15:30 | XR ---
EXAMINATION TYPE: XR chest 2V DATE OF EXAM: 02/14/2023 3:21 PM COMPARISON: Chest radiographs from 08/15/2017, CT chest 10/24/2012 TECHNIQUE: XR chest 2V Frontal and lateral views of the chest. CLINICAL INDICATION:Female, 82 years old with history of Chest Pain; FINDINGS: Lungs/Pleura: There is no evidence of pleural effusion or pneumothorax. No focal consolidation Chroni c senescent parenchymal change. Elevation of the right hemidiaphragm. Pulmonary vascularity: Unremarkable. Heart/mediastinum: Cardiomediastinal silhouette is enlarged and stable. Atherosclerotic calcificatio ns are seen in the aorta. Musculoskeletal: No acute osseous pathology. Fixation changes of the right proximal humerus. [place] tration of lower thoracic spine wedge compression deformity. Other findings: Increased retrocardiac density consistent with known large hiatal hernia. Surgical cl ips in the upper abdomen IMPRESSION: 1. No acute pulmonary process. 2. Increased retrocardiac density consistent with known large hiatal hernia.
[2023-02-14] MEDS ORDERED: NALOXONE 0.4 MG/ML 1 ML VIAL IV PRN (16:06)
[2023-02-14] MEDS ORDERED: MORPHINE SULFATE 2 MG/ML SYRINGE IV PRN (16:06)
[2023-02-14] MEDS ORDERED: traMADol 50 MG TAB PO PRN (16:06)
[2023-02-14] MEDS ORDERED: ALBUTEROL NEBULIZED 2.5 MG/3 ML INHALATION PRN (17:50)
[2023-02-14] MEDS ORDERED: WARFARIN 3 MG TAB PO SCH (21:00)
[2023-02-14] MEDS: CALCIUM CARB-VIT D 500 MG-5 MCG TAB PO SCH (21:22)
[2023-02-14] MEDS: METOPROLOL TARTRATE 25 MG TAB PO SCH (21:22)
[2023-02-15 07:09] VITALS: BP 145/81; PULSE 66; RESP 16; TEMP 97.6
[2023-02-15] MEDS ORDERED: LEVOTHYROXINE 50 MCG TAB PO SCH (07:30)
[2023-02-15] MEDS ORDERED: NON FORMULARY DRUG (Lansoprazole [Prevacid] 30 MG Capsule.Dr) PO SCH (07:30)
[2023-02-15] MEDS ORDERED: PANTOPRAZOLE 40 MG TABLET PO SCH (07:30)
--- NOTE | 2023-02-15 07:33 | P.HPIM ---
History of Present Illness H&P Date: 02/14/23 Chief Complaint: Chest pain 82-year-old female presenting to the emergency room with complaints of substernal/epigastric region pain along with left scapular pain which both began at the same time approximately 2-1/2 days ago on . She reports that she woke with the pain and does not recall any triggering events. She states that the pain is worse with movement and worse with palpation to specific locations at the bottom of her sternum and along the left scapula. She denies any changes in her chronic shortness of breath. She denies any typical chest pain, orthopnea, abdominal pain not related to epigastric pain as stated above, nausea, vomiting, diaphoresis, headache, dizziness, fevers or chills. She is on warfarin for a history of atrial fibrillation, DVT, pulmonary emboli along with lupus hypercoagulability disorder. She denies taking any medication for her pain. She denies any range of motion impairment of her left shoulder. In addition to her A. 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 EKG demonstrates sinus rhythm with first-degree AV block and right bundle-branch block. Laboratory studies reveal mild anemia with a hemoglobin of 11.3 and chronic leukocytosis with a WBC of 3.7. INR is therapeutic at 2.3. D-dimer normal. CMP reveals slightly elevated BUN at 20 otherwise no abnormalities. Magnesium normal. Troponin negative. Chest x-ray without any acute cardiopulmonary process; large hiatal hernia noted likely underlying source of atypical chest pain however due to high risk factors advised recommend observation stay for continued monitoring of symptoms and troponin levels. Review of Systems REVIEW OF SYSTEMS: CONSTITUTIONAL: No fever, no malaise, no fatigue. HEENT: No recent visual problems or hearing problems. Denied any sore throat. CARDIOVASCULAR: No chest pain, orthopnea, PND, no palpitations, no syncope. PULMONARY: No shortness of breath, no cough, no hemoptysis. GASTROINTESTINAL: No diarrhea, no nausea, no vomiting, no abdominal pain. NEUROLOGICAL: No headaches, no weakness, no numbness. HEMATOLOGICAL: Denies any bleeding or petechiae. GENITOURINARY: Denies any burning micturition, frequency, or urgency. MUSCULOSKELETAL/RHEUMATOLOGICAL: Denies any joint pain, swelling, or any muscle pain. ENDOCRINE: Denies any polyuria or polydipsia. The rest of the 14-point review of systems is negative. 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 Date of last positivie culture/infection: 2012 MDRO Source:: EYES Past Surgical History: Cholecystectomy, Orthopedic Surgery, Tonsillectomy Additional Past Surgical History / Comment(s): CARPAL TUNNEL, CATARACT, right shoulder Past Anesthesia/Blood Transfusion Reactions: No Reported Reaction Additional Past Anesthesia/Blood Transfusion Reaction / Comment(s): no problems with prior blood transfusion Past Psychological History: No Psychological Hx Reported Smoking Status: Never smoker Past Alcohol Use History: Occasional Past Drug Use History: None Reported - Past Family History Father Family Medical History: Cancer Brother(s) Family Medical History: Cancer Medications and Allergies Home Medications Medication Instructions Recorded Confirmed Type Calcium Carb-Vit D 500Mg-5Mcg 1 tab PO BID 01/22/14 02/14/23 History [Oscal 500+D 5 Mcg (200 Iu)] Lansoprazole [Prevacid] 30 mg PO AC-BRKFST 01/22/14 02/14/23 History Levothyroxine Sodium [Synthroid] 50 mcg PO AC-BRKFST 01/22/14 02/14/23 History Metoprolol Tartrate [Lopressor] 37.5 mg PO BID 06/18/20 02/14/23 History Albuterol Nebulized [Ventolin 2.5 mg INHALATION RT-QID PRN 02/14/23 02/14/23 History Nebulized] Multivit-Min/FA/Lycopen/Lutein 1 tab PO DAILY 02/14/23 02/14/23 History [Centrum Silver Tablet] Warfarin [Coumadin] 3 mg PO MOWETH@209902/14/23 02/14/23 History Warfarin [Coumadin] 4.5 mg PO SUTUFRSA@209902/14/2302/14/23 History Allergies Allergy/AdvReac Type Severity Reaction Status Date / Time Iodinated Contrast Media Allergy hives Verified 02/14/23 17:14 [Iodinated Contrast Media - Oral and] theophylline Allergy Unknown Verified 02/14/23 17:14 Physical Exam Vitals: Vital Signs Temp Pulse Resp BP Pulse Ox 02/14/23 16:21 60 18 137/67 98 02/14/23 15:00 61 20 178/80 99 02/14/23 14:14 98.0 F 66 20 155/76 95 Intake and Output 02/14/23 02/14/23 02/14/23 06:59 14:59 22:59 Other: Weight 63.957 kg PHYSICAL EXAMINATION: GENERAL: The patient is alert and oriented x3, not in any acute distress. Well developed, well nourished. HEENT: Pupils are round and equally reacting to light. EOMI. No scleral icterus. No conjunctival pallor. Normocephalic, atraumatic. No pharyngeal erythema. No thyromegaly. CARDIOVASCULAR: S1 and S2 present. No murmurs, rubs, or gallops. PULMONARY: Chest is clear to auscultation, no wheezing or crackles. ABDOMEN: Soft, nontender, nondistended, normoactive bowel sounds. No palpable organomegaly. MUSCULOSKELETAL: No joint swelling or deformity. EXTREMITIES: No cyanosis, clubbing, or pedal edema. NEUROLOGICAL: Gross neurological examination did not reveal any focal deficits. SKIN: No rashes. Results CBC & Chem 7: 02/14/23 14:53 02/14/23 14:53 Labs: Abnormal Lab Results - Last 24 Hours (Table) 02/14/23 02/14/23 02/14/23 Range/Units 14:53 14:53 14:53 WBC 3.7 L (3.8-10.6) k/uL RBC 3.79 L (3.80-5.40) m/uL Hgb 11.3 L (11.4-16.0) gm/dL Lymphocytes # 0.6 L (1.0-4.8) k/uL PT 22.8 H (9.0-12.0) sec INR 2.3 H (<1.2) APTT 32.8 H (22.0-30.0) sec BUN 20 H (7-17) mg/dL Assessment and Plan Assessment: 1. Chest pain; rule out acute coronary syndrome - Patient does have history of coronary artery disease and takes beta blockers and Coumadin - We will monitor EKG and trend troponin; recommend 2-D echo - Consult cardiology for further evaluation 2. Mild AK I; slow IV fluid hydration with normal saline at a rate of 75 mL an hour; monitor renal function and electrolytes; monitor IMTIAZ's; avoid nephrotoxins and hypotension 3. Hypothyroidism; Synthroid 50 MCG daily 4. Hypertension; metoprolol 37.5 mg twice a day 5. Paroxysmal atrial fibrillation; rate controlled on metoprolol and anticoagulated with Coumadin; INR is therapeutic 4. History of PE; patient is anticoagulated on Coumadin 5. Back pain/shoulder pain; history of osteoarthritis 6. COPD; not in exacerbation; continue with home therapy DVT prophylaxis; SCDs/Coumadin CODE STATUS; full code
[2023-02-15 08:01] LABS: INR 2.2 (<1.2); Prothrombin Time 21.6 sec (9.0-12.0)
[2023-02-15] MEDS ORDERED: MULTIVITAMINS, THERA 1 EACH TAB PO SCH (09:00)
[2023-02-15] MEDS: METOPROLOL TARTRATE 25 MG TAB PO SCH (09:49)
[2023-02-15] MEDS: CALCIUM CARB-VIT D 500 MG-5 MCG TAB PO SCH (09:49)
--- NOTE | 2023-02-15 10:08 | P.CRDCN ---
History of Present Illness Consult date: 02/15/23 Chief complaint: Chest discomfort History of present illness: The patient is a pleasant 82-year-old female patient was no [place] from before with CAD and known intermediate disease involving the right coronary artery and left main coronary artery documented to be nonflow limiting based on heart catheterization performed in August 2022 where she underwent at that point and iFR on both and both came in to be none flow limiting. Beside that she does have history of hypertension and dyslipidemia and history of DVT and history of paroxysmal atrial fibrillation and history of interstitial lung disease. She presented to the hospital complaining of left shoulder discomfort in the chest discomfort. She describes discomfort in the chest as a dull kind of discomfort in the middle of the chest with no associated symptoms of increasing shortness of breath or sweating or dizziness or lightheaded or any feeling of heart racing or fluttering or presyncope or syncope. Further cardiac investigation was performed including an EKG showing sinus mechanism was RBBB. Troponin came in to be unremarkable. The chest x-ray did not show any acute abnormalities. The rest of blood work came in to be unremarkable with the patient remains chest pa in-free throughout her hospital stay. The pressure appears to be slightly elevated. Her heart rate has been in the 60s and 70s. The examination is remarkable for regular rhythm with a systolic murmur at the right and left upper sternal border with clear breathing sounds bilaterally and no lower extremities edema noted. Her vitals are stable beside slightly elevated blood pressure consistent was a stage II hypertension Assessment Chest discomfort. Currently the patient is chest pain-free CAD as described above involving the RCA and left main coronary artery Hypertension Dyslipidemia History of DVT Paroxysmal atrial fibrillation History of interstitial lung disease Plan Acute coronary event was ruled out We will try to ambulate the patient and address/SS any symptoms of any chest pain or chest discomfort Start the patient on oral nitrate Continue the current dose of beta seferino was metoprolol Follow-up with the patient 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 Date of last positivie culture/infection: 2012 MDRO Source:: EYES Past Surgical History: Cholecystectomy, Orthopedic Surgery, Tonsillectomy Additional Past Surgical History / Comment(s): CARPAL TUNNEL, CATARACT, right shoulder Past Anesthesia/Blood Transfusion Reactions: No Reported Reaction Additional Past Anesthesia/Blood Transfusion Reaction / Comment(s): no problems with prior blood transfusion Past Psychological History: No Psychological Hx Reported Smoking Status: Never smoker Past Alcohol Use History: Occasional Past Drug Use History: None Reported - Past Family History Father Family Medical History: Cancer Brother(s) Family Medical History: Cancer Medications and Allergies Home Medications Medication Instructions Recorded Confirmed Type Calcium Carb-Vit D 500Mg-5Mcg 1 tab PO BID 01/22/14 02/14/23 History [Oscal 500+D 5 Mcg (200 Iu)] Lansoprazole [Prevacid] 30 mg PO AC-BRKFST 01/22/14 02/14/23 History Levothyroxine Sodium [Synthroid] 50 mcg PO -KT 01/22/14 02/14/23 History Metoprolol Tartrate [Lopressor] 37.5 mg PO BID 06/18/20 02/14/23 History Albuterol Nebulized [Ventolin 2.5 mg INHALATION RT-QID PRN 02/14/23 02/14/23 History Nebulized] Multivit-Min/FA/Lycopen/Lutein 1 tab PO DAILY 02/14/23 02/14/23 History [Centrum Silver Tablet] Warfarin [Coumadin] 3 mg PO MOWETH@209902/14/23 02/14/23 History Warfarin [Coumadin] 4.5 mg PO SUTUFRSA@209902/14/23 02/14/23 History Allergies Allergy/AdvReac Type Severity Reaction Status Date / Time Iodinated Contrast Media Allergy hives Verified 02/14/23 17:14 [Iodinated Contrast Media - Oral and] theophylline Allergy Unknown Verified 02/14/23 17:14 Physical Exam Vitals: Vital Signs Temp Pulse Pulse Resp BP BP BP 02/15/23 06:45 97.6 F 66 16 145/81 02/15/23 01:30 98.2 F 81 15 139/87 02/14/23 20:40 97.9 F 71 18 159/82 02/14/23 19:53 65 18 140/54 02/14/23 16:21 60 18 137/67 02/14/23 15:00 61 20 178/80 02/14/23 14:14 98.0 F 66 20 155/76 Pulse Ox 02/15/23 06:45 94 L 02/15/23 01:30 97 02/14/23 20:40 98 02/14/23 19:53 94 L 02/14/23 16:21 98 02/14/23 15:00 99 02/14/23 14:14 95 Intake and Output 02/14/23 02/15/23 02/15/23 22:59 06:59 14:59 Other: # Voids 1 2 Weight 63.957 kg Results 02/14/23 14:53 02/14/23 14:53 Cardiac Enzymes 02/14/23 02/14/23 02/14/23 Range/Units 14:53 14:53 18:05 AST 31 (14-36) U/L Troponin I <0.012 <0.012 (0.000-0.034) ng/mL 02/14/23 Range/Units 21:06 AST (14-36) U/L Troponin I <0.012 (0.000-0.034) ng/mL Coagulation 02/14/23 02/15/23 Range/Units 14:53 06:52 PT 22.8 H 21.6 H (9.0-12.0) sec APTT 32.8 H (22.0-30.0) sec CBC 02/14/23 Range/Units 14:53 WBC 3.7 L (3.8-10.6) k/uL RBC 3.79 L (3.80-5.40) m/uL Hgb 11.3 L (11.4-16.0) gm/dL Hct 34.3 (34.0-46.0) % Plt Count 156 (150-450) k/uL Comprehensive Metabolic Panel 02/14/23 Range/Units 14:53 Sodium 139 (137-145) mmol/L Potassium 4.8 (3.5-5.1) mmol/L Chloride 107 (98-107) mmol/L Carbon Dioxide 25 (22-30) mmol/L BUN 20 H (7-17) mg/dL Creatinine 0.87 (0.52-1.04) mg/dL Glucose 91 (74-99) mg/dL Calcium 9.0 (8.4-10.2) mg/dL AST 31 (14-36) U/L ALT 17 (4-34) U/L Alkaline Phosphatase 68 (38-126) U/L Total Protein 7.2 (6.3-8.2) g/dL Albumin 3.8 (3.5-5.0) g/dL Current Medications Generic Name Dose Route Start Last Admin Trade Name Freq PRN Reason Stop Dose Admin Albuterol Sulfate 2.5 mg 02/14/23 17:50 Albuterol Nebulized 2.5 Mg/3 Ml INHALATION RT-QID PRN Shortness Of Breath Calcium Carbonate 1 each 02/14/23 21:00 02/15/23 09:49 Calcium Carb-Vit D 500 Mg-5 Mcg Tab PO 1 each BID RACHNA Administration Levothyroxine Sodium 50 mcg 02/15/23 07:30 02/15/23 06:28 Levothyroxine 50 Mcg Tab PO 50 mcg -[facility] Administration Metoprolol Tartrate 37.5 mg 02/14/23 21:00 02/15/23 09:49 Metoprolol Tartrate 25 Mg Tab PO 37.5 mg BID RACHNA Administration Miscellaneous Information 0 each 02/14/23 18:01 Warfarin Per Pharmacy MISCELLANE DIRECTED PRN PER PROTOCOL Morphine Sulfate 2 mg 02/14/23 16:06 Morphine Sulfate 2 Mg/Ml Syringe IV Q4HR PRN Severe Pain (Scale 7 to 10) Multivitamins 1 each 02/15/23 09:00 02/15/23 09:49 Multivitamins, Thera 1 Each Tab PO 1 each DAILY RACHNA Administration Naloxone HCl 0.2 mg 02/14/23 16:06 Naloxone 0.4 Mg/Ml 1 Ml Vial IV Q2M PRN Opioid Reversal Pantoprazole Sodium 40 mg 02/15/23 07:30 02/15/23 06:28 Pantoprazole 40 Mg Tablet PO 40 mg -[facility] Administration Tramadol HCl 50 mg 02/14/23 16:06 02/14/23 21:23 Tramadol 50 Mg Tab PO 50 mg Q6H PRN Administration Moderate Pain (Scale 4 to 6) Warfarin Sodium 3 mg 02/16/23 21:00 Warfarin 3 Mg Tab PO MOWETH@2100 [facility] Protocol Warfarin Sodium 4.5 mg 07/08/23 21:00 02/14/23 21:54 Warfarin 3 Mg Tab PO 4.5 mg NILESA@2100 [facility] Administration Protocol Intake and Output 02/14/23 02/15/23 02/15/23 22:59 06:59 14:59 Other: # Voids 1 2 Weight 63.957 kg 02/14/23 14:53 02/14/23 14:53
[2023-02-15] MEDS ORDERED: ISOSORBIDE MONONITRATE ER 30 MG TAB.ER.24H PO SCH (10:15)
[2023-02-15 13:52] LABS: BUN/Creat Ratio 18.75 Ratio (12.00-20.00); Calcium 8.7 mg/dL (8.7-10.3); Carbon Dioxide 19.7 mmol/L (21.6-31.8); Chloride 107 mmol/L (96-109); Glucose 80 mg/dL (70-110); Potassium 5.1 mmol/L (3.5-5.5); Sodium 139 mmol/L (135-145)
[2023-02-15 13:57] LABS: Basophils # (A) 0.02 X 10*3/uL (0.00-0.10); Basophils % (A) 0.7 %; Eosinophils % (A) 6.8 %; HCT 33.4 % (37.2-46.3); HGB 10.2 d/dL (12.0-15.0); Lymphocytes # (A) 0.63 X 10*3/uL (0.90-5.00); Lymphocytes % (A) 21.4 %; MCH 27.9 pg (27.0-32.0); MCHC 30.5 d/dL (32.0-37.0); MCV 91.5 FL (80.0-97.0); Mean Platelet Volume 11.1 FL (9.5-12.2); Monocytes # (A) 0.38 X 10*3/uL (0.20-1.00); Monocytes % (A) 12.9 %; NRBC Per 100 WBC 0 X 10*3/uL (0.00-0.01); Neutrophils # (A) 1.71 X 10*3/uL (1.80-7.70); Neutrophils % (A) 57.9 %; Platelet Count 152 X 10*3/uL (140-440); RBC 3.65 X 10*6/uL (4.10-5.20); RDW 14.3 % (11.5-14.5); WBC 2.95 X 10*3/uL (4.50-10.00)
[2023-02-16] MEDS ORDERED: WARFARIN 3 MG TAB PO SCH (21:00)
== END 2023-02-15 14:15 | disposition home or self-care (01) | DRG 303 ==
LOC: EC 14:09 → 6NMEDSUR 18:13
PROVIDERS: ADMIT Internal Medicine; ATTEND Internal Medicine
DX: I25.110 Atherosclerotic heart disease of native coronary artery with unstable angina pectoris (principal); D68.59 Other primary thrombophilia; E03.9 Hypothyroidism, unspecified; Z79.890 Hormone replacement therapy; I48.0 Paroxysmal atrial fibrillation; M54.9 Dorsalgia, unspecified; T37.8X5A Adverse effect of other specified systemic anti-infectives and antiparasitics, initial encounter; M25.519 Pain in unspecified shoulder; Z86.711 Personal history of pulmonary embolism; Z88.8 Allergy status to other drugs, medicaments and biological substances; H54.7 Unspecified visual loss; E78.5 Hyperlipidemia, unspecified; J84.89 Other specified interstitial pulmonary diseases; M19.90 Unspecified osteoarthritis, unspecified site; I45.10 Unspecified right bundle-branch block; I44.0 Atrioventricular block, first degree; X58.XXXA Exposure to other specified factors, initial encounter; Z91.041 Radiographic dye allergy status; K44.9 Diaphragmatic hernia without obstruction or gangrene; Z79.01 Long term (current) use of anticoagulants; Z86.718 Personal history of other venous thrombosis and embolism; Z98.49 Cataract extraction status, unspecified eye; Z90.49 Acquired absence of other specified parts of digestive tract; Z86.14 Personal history of Methicillin resistant Staphylococcus aureus infection
CPT/HCPCS: 36415; 71046; 80048; 80053; 83735; 84484; 85025; 85379; 85610; 85730; 93005; 96374; 99285

== ENCOUNTER → 2023-04-16 | Outpatient (CLI) | payer MEDICARE, BC ==
[2023-04-16 16:26] LABS: HCT 36.2 % (37.2-46.3); HGB 11.3 d/dL (12.0-15.0); MCH 28.3 pg (27.0-32.0); MCHC 31.2 d/dL (32.0-37.0); MCV 90.7 FL (80.0-97.0); NRBC Per 100 WBC 0 X 10*3/uL (0.00-0.01); Platelet Count 163 X 10*3/uL (140-440); RBC 3.99 X 10*6/uL (4.10-5.20); RDW 14.8 % (11.5-14.5); WBC 3.62 X 10*3/uL (4.50-10.00)
[2023-04-16 17:28] LABS: Blood Urea Nitrogen 24.4 mg/dL (9.0-27.0); Carbon Dioxide 24.8 mmol/L (21.6-31.8); Chloride 107 mmol/L (96-109); Potassium 5.2 mmol/L (3.5-5.5); Sodium 141 mmol/L (135-145)
== END | disposition home or self-care (01) ==
LOC: LABPAT 09:59
PROVIDERS: ATTEND Internal Medicine Interventional Cardiology
DX: Z01.812 Encounter for preprocedural laboratory examination (principal); I25.10 Atherosclerotic heart disease of native coronary artery without angina pectoris
CPT/HCPCS: 36415; 80051; 82565; 84520; 85027

== ENCOUNTER 2023-04-29 08:15 | Day surgery (SDC) | payer MEDICARE, BC ==
[2023-04-24 16:26] VITALS: BMI 25.6
[~2023-04-29 08:15] MED LIST changes: -ASPIRIN 325 MG TAB PO ONE; +ASPIRIN 325 MG TAB PO STA; -ATORVASTATIN 80 MG TAB PO ONE; +ATORVASTATIN 80 MG TAB PO STA; +HEPARIN SODIUM,PORCINE (1 ML) 2,500 UNIT in SODIUM CHLORIDE 0.9% 250 ML IRRIGATION PRN; -HEPARIN SODIUM,PORCINE 2,500 UNIT in SODIUM CHLORIDE 0.9% 250 ML IRRIGATION PRN; -SODIUM CHLORIDE 0.9% 1,000 ML in EMPTY BAG 1 BAG IV ONE
[2023-04-29] MEDS: SODIUM CHLORIDE 0.9% 1,000 ML in EMPTY BAG 1 BAG IV SCH ×2 (08:35→20:02)
[2023-04-29 08:54] LABS: INR 1.2 (<1.2)
[2023-04-29] MEDS ORDERED: VERAPAMIL 2.5 MG/ML 2 ML AMP ONE (10:11)
[2023-04-29] MEDS: MIDAZOLAM 2 MG/2 ML VIAL IVP ONE ×2 (10:17→10:38)
[2023-04-29] MEDS ORDERED: LIDOCAINE 1% INJ 10MG/ML (5 ML VIAL-PF) SQ ONE (10:19)
[2023-04-29] MEDS ORDERED: HEPARIN SODIUM 1,000 UN/ML (10ML VL) ONE (10:31)
[2023-04-29] MEDS ORDERED: CLOPIDOGREL 75 MG TAB ONE (10:34)
[2023-04-29] MEDS ORDERED: HEPARIN SODIUM 1,000 UN/ML (10ML VL) IVP ONE (10:35)
[2023-04-29] MEDS ORDERED: CLOPIDOGREL 75 MG TAB PO ONE (10:37)
[2023-04-29] MEDS ORDERED: NITROGLYCERIN 1000MCG/10ML SYRINGE INTRACORON ONE ×2 (10:43)
[2023-04-29] MEDS ORDERED: IOPAMIDOL-370 100ML BTL INJ ONE (10:54)
[2023-04-29] MEDS ORDERED: HYDROmorphone 0.5 MG/0.5 ML SYRINGE IVP ONE (11:07)
[2023-04-29] MEDS ORDERED: RX INFO: IV CONTRAST WAS GIVEN 1 EACH MISC MISCELLANE PRN (11:12)
[2023-04-29] MEDS ORDERED: ZOLPIDEM 5 MG TAB PO PRN (11:12)
[2023-04-29] MEDS ORDERED: ATROPINE SULFATE 0.1 MG/ML 10ML SYRINGE IV PRN (11:12)
[2023-04-29] MEDS ORDERED: MAG HYDROX/AL HYDROX/SIMETH 30 ML CUP PO PRN (11:12)
[2023-04-29] MEDS ORDERED: NITROGLYCERIN SL TABS 0.4 MG TAB SUBLINGUAL PRN (11:12)
[2023-04-29] MEDS ORDERED: SODIUM CHLORIDE 0.9% 1,000 ML in EMPTY BAG 1 BAG IV SCH (11:15)
--- NOTE | 2023-04-29 11:19 | P.PCN ---
Date of Procedure: 04/29/23 Operative Findings: CARDIAC CATHETERIZATION AND PERCUTANEOUS CORONARY INTERVENTION PERFORMING PHYSICIAN: Ki Lawrence MD, [facility] PROCEDURE PERFORMED: 1. Selective right and left coronary angiogram 2. Left heart catheterization 3. Successful stenting of mid LCx using 3.0 x 15 mm Xience CATARINO with an excellent angiographic results 4. Selective right common femoral artery angiogram 5. Ultrasound-guided access of the right common femoral artery INDICATION: Chest discomfort concerning for angina in this 82-year-old female patient who is known to have CAD on prior heart catheterization as well as hypertension and dyslipidemia COMPLICATION: None APPROACH: Right common femoral artery LEVEL OF SEDATION: Moderate with the sedation time off 39 minutes PROCEDURE DESCRIPTION: After obtaining an informed consent the patient was brought to cardiac chemical laboratory scientist. The right common femoral artery was cannulated using micropuncture technique under ultrasound guidance and the micropuncture wire passed easily then I placed a 6-Greek sheath at the right common femoral artery after that selective right and left coronary angiogram performed using JR4 and JL 4.5 catheters. Left heart catheterization was performed using the JL 4.5 catheter which across aortic valve then I did pull across the valve. After that I did intervene on the left circumflex coronary artery. The procedure was completed was no complication SELECTIVE CORONARY ANGIOGRAM: The right coronary artery: Large caliber vessel and a dominant vessel. The RCA has intermediate lesion in the midportion appears to be in the range of 40-50% Left main: Has intermediate lesion appears to be in the range of 30-40%. Unchanged compared to before. Bifurcates into an LCx and LAD The left circumflex: Large caliber vessel nondominant vessel. The LCx in the midportion has a lesion appeared to be in the range of 80-90% The left anterior descending artery: Large caliber vessel. The proximal LAD appeared to have mild disease only. The mid LAD has intermediate lesion appears to be in the range of 40%. The LAD gives rises into the first and second diagonal and both appear to have mild disease only HEMODYNAMICS: The LVEDP was about 18 mmHg was no significant gradient across aortic valve PCI OF THE LCx: Anticoagulation was initiated using heparin with continuous ACT monitoring. I engaged the left main using a CLS 3.5 guiding catheter. I did where the left circumflex using a run-through wire. After that balloon angioplasty was performed using 2.5 mm x 12 mm balloon before I deployed 3.0 x 15 mm stent and subsequently postdilated using 3.25 mm noncompliant balloon was final angiogram showing good angiographic results was RITA-3 flow and no dissection. The procedure was completed was no complication. By the end I did selective right common femoral artery angiogram before I deployed the Angio-Seal device. CONCLUSION: 1. Critical disease involving the mid LCx. I did perform successful stenting of the LCx 2. Intermediate disease involving the mid RCA unchanged compared to before 3. Intermediate disease involving the distal left main unchanged compared to before 4. Elevated left-sided filling pressure POSTPROCEDURE MANAGEMENT: 1. Dual antiplatelet therapy using aspirin and Plavix for at least 6 months month 2. Aggressive cholesterol control 3. Follow-up with the patient
[2023-04-29] MEDS: SYMBICORT 80-4.5 MCG INHALER INHALATION SCH (20:59)
[2023-04-29] MEDS: METOPROLOL TARTRATE 12.5 MG TAB PO SCH (21:00)
[2023-04-30 06:35] LABS: African American GFR (CKD) 71 (>60 ml/min/1.73 sqM); Non-African American GFR(CKD) 61 (>60 ml/min/1.73 sqM)
[2023-04-30 07:24] VITALS: BP 118/58; PULSE 62; RESP 17; TEMP 97.7
[2023-04-30] MEDS ORDERED: PANTOPRAZOLE 40 MG TABLET PO SCH (07:30)
[2023-04-30] MEDS ORDERED: LEVOTHYROXINE 50 MCG TAB PO SCH (07:30)
[2023-04-30] MEDS: SYMBICORT 80-4.5 MCG INHALER INHALATION SCH (07:38)
--- NOTE | 2023-04-30 08:05 | P.DS ---
Providers Attending physician: Ki Lawrence Consults: 04/29/23 11:13 Consult Physician Routine Consulting Provider: [facility] Consult Reason/Comments: Post Interventional patient Do you want consulting provider notified?: Already Contacted Primary care physician: Umair Thomas brien [facility] Course: The patient is a pleasant 82-year-old female patient who underwent yesterday successful stenting of the left circumflex coronary artery She was seen and evaluated this morning. She is asymptomatic and hemodynamically stable. The patient is going to be discharged home on dual antiplatelet therapy and I am going to follow-up with the patient next week in the office. As a matter of fact she is going to be discharged on triple therapy because she is on Coumadin and she would be on triple therapy for 4 weeks and subsequently she would be I switched into antiplatelet with Plavix along with anticoagulation with Coumadin I will follow-up with the patient next week in the office Plan - Discharge Summary Discharge Rx Participant: No New Discharge Prescriptions: New Aspirin 81 mg PO DAILY #90 tab Clopidogrel [Plavix] 75 mg PO DAILY #90 tab Atorvastatin [Lipitor] 40 mg PO HS #90 tablet Continue Levothyroxine Sodium [Synthroid] 50 mcg PO AC-BRKFST Lansoprazole [Prevacid] 30 mg PO AC-BRKFST Metoprolol Tartrate [Lopressor] 37.5 mg PO BID Warfarin [Coumadin] 3 mg PO MOWEFR Multivit-Min/Iron/Folic/Lutein [Centrum Silver Women Tablet] 1 each PO DAILY Calcium 500 With Vit D 1 tab PO DAILY Furosemide [Lasix] 20 mg PO DAILY Fluticasone Propion/Salmeterol [Wixela 250-50 Inhub] 1 inhalation PO BID Warfarin [Coumadin] 4.5 mg PO SUTUTHSA Isosorbide Mononitrate ER [Imdur] 30 mg PO DAILY 30 Days #30 tab Discharge Medication List Lansoprazole [Prevacid] 30 mg PO AC-BRKFST 01/22/14 [History] Levothyroxine Sodium [Synthroid] 50 mcg PO AC-BRKFST 01/22/14 [History] Metoprolol Tartrate [Lopressor] 37.5 mg PO BID 06/18/20 [History] Warfarin [Coumadin] 3 mg PO MOWEFR 02/14/23 [History] Warfarin [Coumadin] 4.5 mg PO SUTUTHSA 02/14/23 [History] Isosorbide Mononitrate ER [Imdur] 30 mg PO DAILY 30 Days #30 tab 02/15/23 [Rx] Calcium 500 With Vit D 1 tab PO DAILY 04/24/23 [History] Multivit-Min/Iron/Folic/Lutein [Centrum Silver Women Tablet] 1 each PO DAILY 04/24/23 [History] Fluticasone Propion/Salmeterol [Wixela 250-50 Inhub] 1 inhalation PO BID 04/29/23 [History] Furosemide [Lasix] 20 mg PO DAILY 04/29/23 [History] Aspirin 81 mg PO DAILY #90 tab 04/30/23 [Rx] Atorvastatin [Lipitor] 40 mg PO HS #90 tablet 04/30/23 [Rx] Clopidogrel [Plavix] 75 mg PO DAILY #90 tab 04/30/23 [Rx] Follow up Appointment(s)/Referral(s): Ki Lawrence MD [STAFF PHYSICIAN] - 1 Week (APPOINTMENT MADE ON @ 3:15PM ) Patient Instructions/Handouts: Moderate Sedation (DC), After Radial Heart Catheterization (GEN) Activity/Diet/Wound Care/Special Instructions: *NO LIFTING, PUSHING, OR PULLING ANYTHING OVER 5 POUNDS FOR 5 DAYS *NO DRIVING FOR 3 DAYS *YOU CAN REMOVE YOUR DRESSING AND SHOWER TOMORROW BUT DO NOT SUBMERSE YOUR PUNCTURE SITE IN WATER FOR A FEW DAYS TO PREVENT INFECTION - SO NO TUB BATHS, POOLS, HOT TUBS, DISHES...ETC *ANY SIGNS OF BLEEDING (HARDNESS, SWELLING, OR EXCESSIVE BRUISING) HOLD DIRECT PRESSURE ON YOUR PUNCTURE SITE AND COME TO THE NEAREST EMERGENCY ROOM TO GET YOUR PUNCTURE SITE LOOKED AT - DO NOT DRIVE YOURSELF! EITHER CALL EMS OR HAVE SOMEONE DRIVE YOU!
[2023-04-30] MEDS: METOPROLOL TARTRATE 12.5 MG TAB PO SCH (08:30)
[2023-04-30] MEDS ORDERED: MULTIVITAMINS, THERA 1 EACH TAB PO SCH (09:00)
[2023-04-30] MEDS ORDERED: ASPIRIN 81 MG PO SCH (09:00)
[2023-04-30] MEDS ORDERED: CLOPIDOGREL 75 MG TAB PO SCH (09:00)
[2023-04-30] MEDS ORDERED: ISOSORBIDE MONONITRATE ER 30 MG TAB.ER.24H PO SCH (09:00)
[2023-04-30] MEDS ORDERED: CALCIUM CARB-VIT D 500 MG-5 MCG TAB PO SCH (09:00)
[2023-04-30] MEDS ORDERED: FUROSEMIDE 20 MG TAB PO SCH (09:00)
== END 2023-04-30 09:00 | disposition home or self-care (01) ==
LOC: CATHCVL 08:15 → 6NMEDSUR 11:58 → CATHCVL 04-30 09:00
PROVIDERS: ATTEND Internal Medicine Interventional Cardiology
DX: I25.10 Atherosclerotic heart disease of native coronary artery without angina pectoris (principal); I10 Essential (primary) hypertension; E78.5 Hyperlipidemia, unspecified; I48.0 Paroxysmal atrial fibrillation; I08.2 Rheumatic disorders of both aortic and tricuspid valves; Z86.718 Personal history of other venous thrombosis and embolism; Z79.01 Long term (current) use of anticoagulants; Z79.890 Hormone replacement therapy; Z79.899 Other long term (current) drug therapy; Z87.09 Personal history of other diseases of the respiratory system; Z87.891 Personal history of nicotine dependence
CPT/HCPCS: 94640 ×2; 94760; 93458; 82565; 85610; C9600; C1760; C1887; C1769 ×3; C1725 ×2; C1894; C1874; J2250; J2001; J1644; J1170; Q9967; J2305

== ENCOUNTER 2023-06-25 10:22 | Emergency (ER) | payer MEDICARE, BC ==
[2023-06-25 11:20] VITALS: RESP 18
--- NOTE | 2023-06-25 11:34 | ED ---
GI Bleed HPI - General Chief complaint: GI Bleed Stated complaint: Nosebleed, GI Bleed Time Seen by Provider: 06/25/23 11:09 Source: patient, RN notes reviewed Mode of arrival: ambulatory Limitations: no limitations - History of Present Illness Initial comments: Patient is a 82-year-old female accompanied by her daughter presented ER with chief complaint of bright red blood per rectum and nosebleeds. Patient has a past medical history significant for A. fib for which he takes Coumadin and Plavix. Patient's last Coumadin dose was last night around 8 PM. Daughter states that she has not seen her mother in the past 3 days. Her mother reported that she has been having a constant slow drip nose bleed for the past 3 days. She also reports 1 episode of hemoptysis but is unsure if that is from the nosebleed or other cause. Daughter states she was giving her mother a shower today and as she wiped her bottom she noticed bright red blood on the rag. Patient has a history of hemorrhoids and diverticulitis. Patient states that she dies tend to strain when using the bathroom ever since her gallbladder removal. Daughter also reports that her mother was getting out of a car and felt a pop in her right side she believes she broke some ribs this was a couple of weeks ago. Mother has been a constant pain on that side since. Patient also reports some nausea and a decreased appetite because nothing tastes good. Patient denies any fevers, chills, chest pain, shortness of breath, abdominal pain, urinary symptoms. - Related Data Home Medications Medication Instructions Recorded Confirmed Lansoprazole [Prevacid] 30 mg PO AC-BRKFST 01/22/14 04/29/23 Levothyroxine Sodium [Synthroid] 50 mcg PO AC-BRKFST 01/22/14 04/29/23 Metoprolol Tartrate [Lopressor] 37.5 mg PO BID 06/18/20 04/29/23 Warfarin [Coumadin] 3 mg PO MOWEFR 02/14/23 04/29/23 Warfarin [Coumadin] 4.5 mg PO SUTUTHSA 02/14/23 04/29/23 Calcium 500 With Vit D 1 tab PO DAILY 04/24/23 Multivit-Min/Iron/Folic/Lutein 1 each PO DAILY 04/24/23 04/29/23 [Centrum Silver Women Tablet] Fluticasone Propion/Salmeterol 1 inhalation PO BID 04/29/23 04/29/23 [Wixela 250-50 Inhub] Furosemide [Lasix] 20 mg PO DAILY 04/29/23 04/29/23 Previous Rx's Medication Instructions Recorded Isosorbide Mononitrate ER [Imdur] 30 mg PO DAILY 30 Days #30 tab 02/15/23 Aspirin 81 mg PO DAILY #90 tab 04/30/23 Atorvastatin [Lipitor] 40 mg PO HS #90 tablet 04/30/23 Clopidogrel [Plavix] 75 mg PO DAILY #90 tab 04/30/23 Allergies Allergy/AdvReac Type Severity Reaction Status Date / Time Iodinated Contrast Media Allergy hives Verified 06/25/23 11:06 [Iodinated Contrast Media - Oral and] theophylline Allergy Unknown Verified 06/25/23 11:06 Review of Systems ROS Statement: Those systems with pertinent positive or pertinent negative responses have been documented in the HPI. ROS Other: All systems not noted in ROS Statement are negative. 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 Date of last positivie culture/infection: 2012 MDRO Source:: EYES Past Surgical History: Heart Catheterization, Heart Catheterization With Stent Additional Past Surgical History / Comment(s): CARPAL TUNNEL, CATARACT, right shoulder Past Anesthesia/Blood Transfusion Reactions: No Reported Reaction Additional Past Anesthesia/Blood Transfusion Reaction / Comment(s): no problems with prior blood transfusion Past Psychological History: No Psychological Hx Reported Smoking Status: Never smoker Past Alcohol Use History: Occasional Past Drug Use History: None Reported - Past Family History Father Family Medical History: Cancer Brother(s) Family Medical History: Cancer General Exam Limitations: no limitations General appearance: alert, in no apparent distress Head exam: Present: atraumatic, normocephalic, normal inspection Eye exam: Present: normal appearance, PERRL, EOMI. Absent: scleral icterus, conjunctival injection, periorbital swelling ENT exam: Present: normal exam, normal oropharynx, mucous membranes moist Neck exam: Present: normal inspection. Absent: tenderness, meningismus, lymphadenopathy Respiratory exam: Present: normal lung sounds bilaterally. Absent: respiratory distress, wheezes, rales, rhonchi, stridor Cardiovascular Exam: Present: irregular rhythm, normal heart sounds GI/Abdominal exam: Present: soft, normal bowel sounds. Absent: distended, tenderness, guarding, rebound, rigid Rectal exam: Present: normal rectal tone, heme (+) stool, other (Multiple fissures are noted) Extremities exam: Present: normal inspection, full ROM, normal capillary refill. Absent: tenderness, pedal edema, joint swelling, calf tenderness Neurological exam: Present: alert, oriented X3, CN II-XII intact Psychiatric exam: Present: normal affect, normal mood Skin exam: Present: warm, dry, intact, normal color (Mild pallor). Absent: rash Course Vital Signs 06/25/23 06/25/23 11:02 14:40 Temperature 97.8 F 98.0 F Pulse Rate 80 78 Respiratory 18 18 Rate Blood Pressure 142/98 138/74 O2 Sat by Pulse 98 98 Oximetry Medical Decision Making - Medical Decision Making Was pt. sent in by a medical professional or institution (, PA, CATTLE CARE WORKER, urgent care, hospital, or custodial...) When possible be specific @ -No Did you speak to anyone other than the patient for history (EMS, parent, family, police, friend...)? What history was obtained from this source @ -Family Did you review nursing and triage notes (agree or disagree)? Why? @ -I reviewed and agree with nursing and triage notes Were old charts reviewed (outside hosp., previous admission, EMS record, old EKG, old radiological studies, urgent care reports/EKG's, custodial records)? Report findings @ -No old charts were reviewed Differential Diagnosis (chest pain, altered mental status, abdominal pain women, abdominal pain men, vaginal bleeding, weakness, fever, dyspnea, syncope, headache, dizziness, GI bleed, back pain, seizure, CVA, palpatations, mental health, musculoskeletal)? @ -Differential Weakness: Hypoglycemia, shock, sepsis, hyponatremia, anemia, infection, LA, ETOH, adverse medicine reaction, overdose, stroke, this is not meant to be an all-inclusive list. EKG interpreted by me (3pts min.). @ -As above X-rays interpreted by me (1pt min.). @ -Chest x-ray obtained the ER showed no acute cardiopulmonary processes. CT interpreted by me (1pt min.). @ -None done U/S interpreted by me (1pt. min.). @ -None done What testing was considered but not performed or refused? (CT, X-rays, U/S, labs)? Why? @ -None What meds were considered but not given or refused? Why? @ -None Did you discuss the management of the patient with other professionals (professionals i.e. Dr., PA, CATTLE CARE WORKER, lab, RT, psych nurse, social insurance analyst, lab rep, teacher, house officer, registered nurse hh case manager)? Give summary @ -No Was smoking cessation discussed for >3mins.? @ -No Was critical care preformed (if so, how long)? @ -No Were there social determinants of health that impacted care today? How? (Ho melessness, low income, unemployed, alcoholism, drug addiction, transportation, low edu. Level, literacy, decrease access to med. care, snf, rehab)? @ -No Was there de-escalation of care discussed even if they declined (Discuss DNR or withdrawal of care, Hospice)? DNR status @ -No What co-morbidities impacted this encounter? (DM, HTN, Smoking, COPD, CAD, Cancer, CVA, ARF, Chemo, Hep., AIDS, mental health diagnosis, sleep apnea, morbid obesity)? @ -Atrial fibrillation Was patient admitted / discharged? Hospital course, mention meds given and route, prescriptions, significant lab abnormalities, going to OR and other pertinent info. @ -Discharge. Upon examination, patient had mild blood postnasal drip and anal fissures noted on rectal exam. Labs obtained in the ER showed an INR greater than 10.0. Chest x-ray showed no acute cardiopulmonary processes. EKG showed normal sinus rhythm with a right bundle-branch block no acute ST or T-wave abnormalities were noted. Patient received 10 mg of vitamin K by mouth before discharge. I discussed with the patient and her daughter, present at bedside, her exam findings and lab results. I explained that she would need to stop her Coumadin and have repeat INR drawn on Thursday,06/28/23. Order was given before discharge. Also, I advised follow-up with Dr. Estes in office on 06/29/23, for Coumadin adjustment and lab follow-up. I discussed strict return parameters with the patient. Patient and her daughter expressed understanding and agreement with care plan. Undiagnosed new problem with uncertain prognosis? @ -No Drug Therapy requiring intensive monitoring for toxicity (Heparin, Nitro, Insulin, Cardizem)? @ -No Were any procedures done? @ -No Diagnosis/symptom? @ -Elevated INR Acute, or Chronic, or Acute on Chronic? @ -Acute on chronic Uncomplicated (without systemic symptoms) or Complicated (systemic symptoms)? @ -Complicated Side effects of treatment? @ -No Exacerbation, Progression, or Severe Exacerbation? @ -No Poses a threat to life or bodily function? How? (Chest pain, USA, LA, pneumonia, PE, COPD, DKA, ARF, appy, cholecystitis, CVA, Diverticulitis, Homicidal, Suicidal, threat to staff... and all critical care pts) @ -No - Lab Data Result diagrams: 06/25/23 11:30 06/25/23 11:30 Lab Results 06/25/23 06/25/23 06/25/23 Range/Units 11:30 11:30 11:30 WBC 3.8 (3.8-10.6) k/uL RBC 3.83 (3.80-5.40) m/uL Hgb 11.6 (11.4-16.0) gm/dL Hct 34.8 (34.0-46.0) % MCV 90.9 (80.0-100.0) fL MCH 30.2 (25.0-35.0) pg MCHC 33.2 (31.0-37.0) g/dL RDW 14.8 (11.5-15.5) % Plt Count 157 (150-450) k/uL MPV 8.2 Neutrophils % 69 % Lymphocytes % 13 % Monocytes % 7 % Eosinophils % 7 % Basophils % 1 % Neutrophils # 2.6 (1.3-7.7) k/uL Lymphocytes # 0.5 L (1.0-4.8) k/uL Monocytes # 0.3 (0-1.0) k/uL Eosinophils # 0.3 (0-0.7) k/uL Basophils # 0.0 (0-0.2) k/uL Hypochromasia Slight PT >130.0 H (10.0-12.5) sec INR >10.0 H* (<1.2) APTT 51.2 H (22.0-30.0) sec Sodium 143 (137-145) mmol/L Potassium 4.1 (3.5-5.1) mmol/L Chloride 109 H (98-107) mmol/L Carbon Dioxide 22 (22-30) mmol/L Anion Gap 12 mmol/L BUN 21 H (7-17) mg/dL Creatinine 1.11 H (0.52-1.04) mg/dL Est GFR (CKD-EPI)AfAm 53 (>60 ml/min/1.73 sqM) Est GFR (CKD-EPI)NonAf 46 (>60 ml/min/1.73 sqM) Glucose 96 (74-99) mg/dL Plasma Lactic Acid Raúl (0.7-2.0) mmol/L Calcium 9.1 (8.4-10.2) mg/dL Magnesium 2.0 (1.6-2.3) mg/dL Total Bilirubin 0.4 (0.2-1.3) mg/dL AST 35 (14-36) U/L ALT 20 (4-34) U/L Alkaline Phosphatase 78 (38-126) U/L Troponin I (0.000-0.034) ng/mL Total Protein 7.0 (6.3-8.2) g/dL Albumin 4.0 (3.5-5.0) g/dL Lipase 166 (23-300) U/L Influenza Type A (PCR) (Not Detectd) Influenza Type B (PCR) (Not Detectd) RSV (PCR) (Not Detectd) SARS-CoV-2 (PCR) (Not Detectd) Blood Type Blood Type Recheck Bld Type Recheck Status Antibody Screen Spec Expiration Date 06/25/23 06/25/23 06/25/23 Range/Units 11:30 11:30 11:30 WBC (3.8-10.6) k/uL RBC (3.80-5.40) m/uL Hgb (11.4-16.0) gm/dL Hct (34.0-46.0) % MCV (80.0-100.0) fL MCH (25.0-35.0) pg MCHC (31.0-37.0) g/dL RDW (11.5-15.5) % Plt Count (150-450) k/uL MPV Neutrophils % % Lymphocytes % % Monocytes % % Eosinophils % % Basophils % % Neutrophils # (1.3-7.7) k/uL Lymphocytes # (1.0-4.8) k/uL Monocytes # (0-1.0) k/uL Eosinophils # (0-0.7) k/uL Basophils # (0-0.2) k/uL Hypochromasia PT (10.0-12.5) sec INR (<1.2) APTT (22.0-30.0) sec Sodium (137-145) mmol/L Potassium (3.5-5.1) mmol/L Chloride (98-107) mmol/L Carbon Dioxide (22-30) mmol/L Anion Gap mmol/L BUN (7-17) mg/dL Creatinine (0.52-1.04) mg/dL Est GFR (CKD-EPI)AfAm (>60 ml/min/1.73 sqM) Est GFR (CKD-EPI)NonAf (>60 ml/min/1.73 sqM) Glucose (74-99) mg/dL Plasma Lactic Acid Raúl 1.3 (0.7-2.0) mmol/L Calcium (8.4-10.2) mg/dL Magnesium (1.6-2.3) mg/dL Total Bilirubin (0.2-1.3) mg/dL AST (14-36) U/L ALT (4-34) U/L Alkaline Phosphatase (38-126) U/L Troponin I 0.021 (0.000-0.034) ng/mL Total Protein (6.3-8.2) g/dL Albumin (3.5-5.0) g/dL Lipase (23-300) U/L Influenza Type A (PCR) (Not Detectd) Influenza Type B (PCR) (Not Detectd) RSV (PCR) (Not Detectd) SARS-CoV-2 (PCR) (Not Detectd) Blood Type A Positive Blood Type Recheck A Pos Bld Type Recheck Status No Antibody Screen NEGATIVE Spec Expiration Date 06/28/20232329 11/16/23 Range/Units 12:55 WBC (3.8-10.6) k/uL RBC (3.80-5.40) m/uL Hgb (11.4-16.0) gm/dL Hct (34.0-46.0) % MCV (80.0-100.0) fL MCH (25.0-35.0) pg MCHC (31.0-37.0) g/dL RDW (11.5-15.5) % Plt Count (150-450) k/uL MPV Neutrophils % % Lymphocytes % % Monocytes % % Eosinophils % % Basophils % % Neutrophils # (1.3-7.7) k/uL Lymphocytes # (1.0-4.8) k/uL Monocytes # (0-1.0) k/uL Eosinophils # (0-0.7) k/uL Basophils # (0-0.2) k/uL Hypochromasia PT (10.0-12.5) sec INR (<1.2) APTT (22.0-30.0) sec Sodium (137-145) mmol/L Potassium (3.5-5.1) mmol/L Chloride (98-107) mmol/L Carbon Dioxide (22-30) mmol/L Anion Gap mmol/L BUN (7-17) mg/dL Creatinine (0.52-1.04) mg/dL Est GFR (CKD-EPI)AfAm (>60 ml/min/1.73 sqM) Est GFR (CKD-EPI)NonAf (>60 ml/min/1.73 sqM) Glucose (74-99) mg/dL Plasma Lactic Acid Raúl (0.7-2.0) mmol/L Calcium (8.4-10.2) mg/dL Magnesium (1.6-2.3) mg/dL Total Bilirubin (0.2-1.3) mg/dL AST (14-36) U/L ALT (4-34) U/L Alkaline Phosphatase (38-126) U/L Troponin I (0.000-0.034) ng/mL Total Protein (6.3-8.2) g/dL Albumin (3.5-5.0) g/dL Lipase (23-300) U/L Influenza Type A (PCR) Not Detected (Not Detectd) Influenza Type B (PCR) Not Detected (Not Detectd) RSV (PCR) Not Detected (Not Detectd) SARS-CoV-2 (PCR) Not Detected (Not Detectd) Blood Type Blood Type Recheck Bld Type Recheck Status Antibody Screen Spec Expiration Date - EKG Data -: EKG Interpreted by Me EKG Comments: EKG taken at 11:18 shows normal sinus rhythm with a right bundle branch block. N o acute ST segment or T-wave abnormalities. Ventricular rate 86, SD interval 196, QRS duration 153, QT/QTc 405/449. - Radiology Data Radiology results: image reviewed Disposition Clinical Impression: Anal fissure, Elevated INR Disposition: HOME SELF-CARE Condition: Stable Instructions (If sedation given, give patient instructions): Elevated INR (ED) Additional Instructions: Please return to the Emergency Department if symptoms worsen or any other concerns. Please stop taking Coumadin. Please return to ER on Thursday06/28/23 for repeat labs and schedule a follow-up appointment with Dr. Estes 06/11. If any increase in shortness of breath, weakness, bleeding please return to ER for reevaluation. Is patient prescribed a controlled substance at d/c from ED?: No Referrals: Umair Estes [Primary Care Provider] - 1-2 days Time of Disposition: 13:49
[2023-06-25 12:18] LABS: Partial Thromboplastin Time 51.2 sec (22.0-30.0)
[2023-06-25 12:43] LABS: ALT 20 U/L (4-34); AST 35 U/L (14-36); African American GFR (CKD) 53 (>60 ml/min/1.73 sqM); Alkaline Phosphatase 78 U/L (38-126); Anion Gap 12 mmol/L; Blood Urea Nitrogen 21 mg/dL (7-17); Calcium 9.1 mg/dL (8.4-10.2); Carbon Dioxide 22 mmol/L (22-30); Chloride 109 mmol/L (98-107); Glucose 96 mg/dL (74-99); Lipase 166 U/L (23-300); Non-African American GFR(CKD) 46 (>60 ml/min/1.73 sqM); Potassium 4.1 mmol/L (3.5-5.1); Sodium 143 mmol/L (137-145); Total Bilirubin 0.4 mg/dL (0.2-1.3)
[2023-06-25 12:48] LABS: Basophils % (A) 1 %; Eosinophils # (A) 0.3 k/uL (0-0.7); Eosinophils % (A) 7 %; HCT 34.8 % (34.0-46.0); HGB 11.6 gm/dL (11.4-16.0); Hypochromasia Slight; Lymphocytes # (A) 0.5 k/uL (1.0-4.8); Lymphocytes % (A) 13 %; MCH 30.2 pg (25.0-35.0); MCHC 33.2 g/dL (31.0-37.0); MCV 90.9 fL (80.0-100.0); Mean Platelet Volume 8.2; Monocytes # (A) 0.3 k/uL (0-1.0); Monocytes % (A) 7 %; Neutrophils # (A) 2.6 k/uL (1.3-7.7); Neutrophils % (A) 69 %; Platelet Count 157 k/uL (150-450); RBC 3.83 m/uL (3.80-5.40); RDW 14.8 % (11.5-15.5); WBC 3.8 k/uL (3.8-10.6)
[2023-06-25 12:59] LABS: Prothrombin Time >130.0 sec (10.0-12.5)
[2023-06-25 13:34] LABS: INR >10.0 (<1.2)
[2023-06-25] MEDS ORDERED: PHYTONADIONE ORAL 5 MG/5 ML ORAL.SYRG PO STA (13:42)
[2023-06-25 15:07] VITALS: BP 138/74; PULSE 78; TEMP 98
== END 2023-06-25 14:42 | disposition home or self-care (01) ==
LOC: EC 10:22
DX: K60.2 Anal fissure, unspecified (principal); R79.1 Abnormal coagulation profile; I45.10 Unspecified right bundle-branch block; I48.91 Unspecified atrial fibrillation; I25.10 Atherosclerotic heart disease of native coronary artery without angina pectoris; J44.9 Chronic obstructive pulmonary disease, unspecified; M19.90 Unspecified osteoarthritis, unspecified site; E07.9 Disorder of thyroid, unspecified; Z86.718 Personal history of other venous thrombosis and embolism; Z91.041 Radiographic dye allergy status; Z88.8 Allergy status to other drugs, medicaments and biological substances; Z79.890 Hormone replacement therapy; Z79.02 Long term (current) use of antithrombotics/antiplatelets; Z79.899 Other long term (current) drug therapy; Z20.822 Contact with and (suspected) exposure to COVID-19
CPT/HCPCS: 36415; 71046; 80053; 83605; 83690; 83735; 84484; 85025; 85610; 85730; 86850; 86900; 86901; 87636; 93005; 99285

== ENCOUNTER 2023-06-28 11:29 | Emergency (ER) | payer MEDICARE, BC ==
[2023-06-28 11:42] VITALS: BP 143/90; PULSE 88; RESP 20; TEMP 98.3
--- NOTE | 2023-06-28 11:48 | ED ---
General Adult HPI - General Chief complaint: Recheck/Abnormal Lab/Rx Stated complaint: abnormal labs Time Seen by Provider: 06/28/23 11:34 Source: patient, family, RN notes reviewed, old records reviewed Mode of arrival: wheelchair Limitations: no limitations - History of Present Illness Initial comments: Patient is a pleasant 82-year-old female presenting to the emergency department with concerns for abnormal blood work. Patient was in the emergency Department a couple of days ago with bloody nose. That has resolved. Patient has continued to hold her Coumadin. Patient did have blood work done as a repeat as an outpatient today and INR was reported as high. Patient states otherwise she is feeling fine and has no complaints. Nosebleed has resolved. Patient did have some bleeding from her hemorrhoids that has also resolved. No new areas of bleeding. - Related Data Home Medications Medication Instructions Recorded Confirmed Lansoprazole [Prevacid] 30 mg PO AC-BRKFST 01/22/14 04/29/23 Levothyroxine Sodium [Synthroid] 50 mcg PO AC-BRKFST 01/22/14 04/29/23 Metoprolol Tartrate [Lopressor] 37.5 mg PO BID 06/18/20 04/29/23 Warfarin [Coumadin] 3 mg PO MOWEFR 02/14/23 04/29/23 Warfarin [Coumadin] 4.5 mg PO SUTUTHSA 02/14/23 04/29/23 Calcium 500 With Vit D 1 tab PO DAILY 04/24/23 Multivit-Min/Iron/Folic/Lutein 1 each PO DAILY 04/24/23 04/29/23 [Centrum Silver Women Tablet] Fluticasone Propion/Salmeterol 1 inhalation PO BID 04/29/23 04/29/23 [Wixela 250-50 Inhub] Furosemide [Lasix] 20 mg PO DAILY 04/29/23 04/29/23 Previous Rx's Medication Instructions Recorded Isosorbide Mononitrate ER [Imdur] 30 mg PO DAILY 30 Days #30 tab 02/15/23 Aspirin 81 mg PO DAILY #90 tab 04/30/23 Atorvastatin [Lipitor] 40 mg PO HS #90 tablet 04/30/23 Clopidogrel [Plavix] 75 mg PO DAILY #90 tab 04/30/23 Allergies Allergy/AdvReac Type Severity Reaction Status Date / Time Iodinated Contrast Media Allergy hives Verified 06/28/23 11:33 [Iodinated Contrast Media - Oral and] theophylline Allergy Unknown Verified 06/28/23 11:33 Review of Systems ROS Statement: Those systems with pertinent positive or pertinent negative responses have been documented in the HPI. ROS Other: All systems not noted in ROS Statement are negative. Constitutional: Denies: fever Eyes: Denies: eye pain ENT: Reports: as per HPI. Denies: ear pain, epistaxis Respiratory: Denies: cough, dyspnea Cardiovascular: Denies: chest pain Gastrointestinal: Reports: as per HPI. 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 Date of last positivie culture/infection: 2012 MDRO Source:: EYES Past Surgical History: Heart Catheterization, Heart Catheterization With Stent Additional Past Surgical History / Comment(s): CARPAL TUNNEL, CATARACT, right shoulder Past Anesthesia/Blood Transfusion Reactions: No Reported Reaction Additional Past Anesthesia/Blood Transfusion Reaction / Comment(s): no problems with prior blood transfusion Past Psychological History: No Psychological Hx Reported Smoking Status: Never smoker Past Alcohol Use History: Occasional Past Drug Use History: None Reported - Past Family History Father Family Medical History: Cancer Brother(s) Family Medical History: Cancer General Exam Limitations: no limitations General appearance: alert, in no apparent distress Head exam: Present: normocephalic Eye exam: Present: normal appearance Neck exam: Present: normal inspection Respiratory exam: Present: normal lung sounds bilaterally Cardiovascular Exam: Present: regular rate, normal rhythm, normal heart sounds GI/Abdominal exam: Present: soft. Absent: tenderness Neurological exam: Present: alert Psychiatric exam: Present: normal affect, normal mood Skin exam: Present: normal color Course Vital Signs 06/28/23 11:31 Temperature 98.3 F Pulse Rate 88 Respiratory 20 Rate Blood Pressure 143/90 O2 Sat by Pulse 97 Oximetry Medical Decision Making - Medical Decision Making Was pt. sent in by a medical professional or institution (, ULYSSES, POWER OPERATOR, urgent care, hospital, or alf...) When possible be specific @ -Patient was sent from lab Did you speak to anyone other than the patient for history (EMS, parent, family, police, friend...)? What history was obtained from this source @ -Daughter is present and helps provide history including white patient is on Coumadin. Did you review nursing and triage notes (agree or disagree)? Why? @ -I reviewed and agree with nursing and triage notes Were old charts reviewed (outside hosp., previous admission, EMS record, old EKG, old radiological studies, urgent care reports/EKG's, alf records)? Report findings @ -No old charts were reviewed Differential Diagnosis (chest pain, altered mental status, abdominal pain women, abdominal pain men, vaginal bleeding, weakness, fever, dyspnea, syncope, headache, dizziness, GI bleed, back pain, seizure, CVA, palpatations, mental health, musculoskeletal)? @ -Differential Weakness: Hypoglycemia, shock, sepsis, hyponatremia, anemia, infection, AR, ETOH, adverse medicine reaction, overdose, stroke, this is not meant to be an all-inclusive list. EKG interpreted by me (3pts min.). @ -As above X-rays interpreted by me (1pt min.). @ -None done CT interpreted by me (1pt min.). @ -None done U/S interpreted by me (1pt. min.). @ -None done What testing was considered but not performed or refused? (CT, X-rays, U/S, labs)? Why? @ -None What meds were considered but not given or refused? Why? @ -None Did you discuss the management of the patient with other professionals (pro fessionals i.e. , ULYSSES, POWER OPERATOR, lab, RT, psych nurse, social media project manager, sheet metal duct worker supervisor, teacher, ethics officer, outpatient case manager)? Give summary @ -No Was smoking cessation discussed for >3mins.? @ -No Was critical care preformed (if so, how long)? @ -No Were there social determinants of health that impacted care today? How? (Homelessness, low income, unemployed, alcoholism, drug addiction, transportation, low edu. Level, literacy, decrease access to med. care, penitentiary, rehab)? @ -No Was there de-escalation of care discussed even if they declined (Discuss DNR or withdrawal of care, Hospice)? DNR status @ -No What co-morbidities impacted this encounter? (DM, HTN, Smoking, COPD, CAD, Cancer, CVA, ARF, Chemo, Hep., AIDS, mental health diagnosis, sleep apnea, morbid obesity)? @ -None Was patient admitted / discharged? Hospital course, mention meds given and route, prescriptions, significant lab abnormalities, going to OR and other pertinent info. @ -Patient and family updated on results and plan. Patient will follow-up tomorrow with primary care physician as planned. Patient will have repeat blood work done on Thursday as planned. Patient will continue to hold Coumadin and return if any bleeding or other concerns Undiagnosed new problem with uncertain prognosis? @ -No Drug Therapy requiring intensive monitoring for toxicity (Heparin, Nitro, Insulin, Cardizem)? @ -No Were any procedures done? @ -No Diagnosis/symptom? @ -Coagulopathy Acute, or Chronic, or Acute on Chronic? @ -Acute Uncomplicated (without systemic symptoms) or Complicated (systemic symptoms)? @ -default Side effects of treatment? @ -No Exacerbation, Progression, or Severe Exacerbation? @ -No Poses a threat to life or bodily function? How? (Chest pain, USA, AR, pneumonia, PE, COPD, DKA, ARF, appy, cholecystitis, CVA, Diverticulitis, Homicidal, Suicidal, threat to staff... and all critical care pts) @ -No Disposition Clinical Impression: Coagulopathy Disposition: HOME SELF-CARE Condition: Stable Instructions (If sedation given, give patient instructions): Hypercoagulation (ED) Additional Instructions: Continue to hold Coumadin until directed otherwise by your primary care physician. Please do follow-up with your primary care physician as planned tomorrow or Thursday. Please have repeat blood work done on Thursday as planned. Return for any bleeding, worsening symptoms or any other concerns. Is patient prescribed a controlled substance at d/c from ED?: No Referrals: Umair Estes [Primary Care Provider] - 1-2 days Time of Disposition: 11:48
[2023-06-28] MEDS ORDERED: PHYTONADIONE ORAL 5 MG/5 ML ORAL.SYRG PO ONE (12:00)
== END 2023-06-28 12:05 | disposition home or self-care (01) ==
LOC: EC 11:29
DX: D68.9 Coagulation defect, unspecified (principal); I48.91 Unspecified atrial fibrillation; I25.10 Atherosclerotic heart disease of native coronary artery without angina pectoris; J44.9 Chronic obstructive pulmonary disease, unspecified; E07.9 Disorder of thyroid, unspecified; Z79.890 Hormone replacement therapy; Z79.02 Long term (current) use of antithrombotics/antiplatelets; Z79.51 Long term (current) use of inhaled steroids; Z91.041 Radiographic dye allergy status; Z88.8 Allergy status to other drugs, medicaments and biological substances
CPT/HCPCS: 99283

== ENCOUNTER → 2023-06-30 | Outpatient (CLI) | payer MEDICARE, BC ==
[2023-06-30 18:13] LABS: Basophils # (A) 0.03 X 10*3/uL (0.00-0.10); Basophils % (A) 0.7 %; Eosinophils # (A) 0.28 X 10*3/uL (0.04-0.35); Eosinophils % (A) 6.9 %; HCT 32.4 % (37.2-46.3); HGB 9.8 g/dL (12.0-15.0); Lymphocytes # (A) 0.63 X 10*3/uL (0.90-5.00); Lymphocytes % (A) 15.6 %; MCH 28.4 pg (27.0-32.0); MCHC 30.2 g/dL (32.0-37.0); MCV 93.9 FL (80.0-97.0); Mean Platelet Volume 10.7 FL (9.5-12.2); Monocytes # (A) 0.51 X 10*3/uL (0.20-1.00); Monocytes % (A) 12.6 %; NRBC Per 100 WBC 0 X 10*3/uL (0.00-0.01); Neutrophils # (A) 2.59 X 10*3/uL (1.80-7.70); Platelet Count 179 X 10*3/uL (140-440); RBC 3.45 X 10*6/uL (4.10-5.20); RDW 15.4 % (11.5-14.5); WBC 4.05 X 10*3/uL (4.50-10.00)
[2023-06-30 20:14] LABS: INR >8.00 sec (0.93-1.11)
== END | disposition home or self-care (01) ==
LOC: LABWHC1 10:14
PROVIDERS: ATTEND Family Medicine
DX: I48.0 Paroxysmal atrial fibrillation (principal)
CPT/HCPCS: 36415; 85025; 85610

== ENCOUNTER 2023-07-28 08:33 | Emergency (ER) | payer MEDICARE, BC ==
[2023-07-28 08:45] VITALS: RESP 18; TEMP 97.8
[2023-07-28] MEDS ORDERED: KETOROLAC 15 MG/ML 1 ML VIAL IVP STA (08:54)
--- NOTE | 2023-07-28 08:57 | ED ---
General Adult HPI - General Source: patient, RN notes reviewed, old records reviewed Mode of arrival: EMS Limitations: no limitations <Alfredito Palmer - Last Filed: 07/28/23 11:53> <Kanu Porter - Last Filed: 07/28/23 16:36> - General Chief complaint: Back Pain/Injury Stated complaint: Back Pain Time Seen by Provider: 07/28/23 08:40 - History of Present Illness Initial comments: This is an 82-year-old female presents emergency Department complaining of right-sided lower back pain. Patient states it started yesterday morning when she got up. Patient states was no trauma or injury that she knows of. Patient states any movement that causes that area to flex or bend causes her pain. Patient denies any radiation of the pain. Patient denies any urinary incontinence or urinary retention. Patient denies any pain in the abdomen. Patient denies any pain down the leg. (Alfredito Palmer) - Related Data Home Medications Medication Instructions Recorded Confirmed Lansoprazole [Prevacid] 30 mg PO AC-BRKFST 01/22/14 04/29/23 Levothyroxine Sodium [Synthroid] 50 mcg PO AC-BRKFST 01/22/14 04/29/23 Metoprolol Tartrate [Lopressor] 37.5 mg PO BID 06/18/20 04/29/23 Warfarin [Coumadin] 3 mg PO MOWEFR 02/14/23 04/29/23 Warfarin [Coumadin] 4.5 mg PO SUTUTHSA 02/14/23 04/29/23 Calcium 500 With Vit D 1 tab PO DAILY 04/24/23 Multivit-Min/Iron/Folic/Lutein 1 each PO DAILY 04/24/23 04/29/23 [Centrum Silver Women Tablet] Fluticasone Propion/Salmeterol 1 inhalation PO BID 04/29/23 04/29/23 [Wixela 250-50 Inhub] Furosemide [Lasix] 20 mg PO DAILY 04/29/23 04/29/23 Previous Rx's Medication Instructions Recorded Isosorbide Mononitrate ER [Imdur] 30 mg PO DAILY 30 Days #30 tab 02/15/23 Aspirin 81 mg PO DAILY #90 tab 04/30/23 Atorvastatin [Lipitor] 40 mg PO HS #90 tablet 04/30/23 Clopidogrel [Plavix] 75 mg PO DAILY #90 tab 04/30/23 Cyclobenzaprine [Flexeril] 5 mg PO TID #10 tab 07/28/23 Cyclobenzaprine [Flexeril] 10 mg PO TID PRN #20 tab 07/28/23 Ibuprofen [Motrin] 600 mg PO Q8HR PRN #20 tab 07/28/23 Allergies Allergy/AdvReac Type Severity Reaction Status Date / Time Iodinated Contrast Media Allergy hives Verified 07/28/23 08:39 [Iodinated Contrast Media - Oral and] theophylline Allergy Unknown Verified 07/28/23 08:39 Review of Systems ROS Other: All systems not noted in ROS Statement are negative. <Alfredito Palmer - Last Filed: 07/28/23 11:53> ROS Other: All systems not noted in ROS Statement are negative. <Kanu Porter - Last Filed: 07/28/23 16:36> ROS Statement: Those systems with pertinent positive or pertinent negative responses have been documented in the HPI. 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 Date of last positivie culture/infection: 2012 MDRO Source:: EYES Past Surgical History: Heart Catheterization, Heart Catheterization With Stent Additional Past Surgical History / Comment(s): CARPAL TUNNEL, CATARACT, right shoulder Past Anesthesia/Blood Transfusion Reactions: No Reported Reaction Additional Past Anesthesia/Blood Transfusion Reaction / Comment(s): no problems with prior blood transfusion Past Psychological History: No Psychological Hx Reported Smoking Status: Former smoker Past Alcohol Use History: Occasional Past Drug Use History: None Reported - Past Family History Father Family Medical History: Cancer Brother(s) Family Medical History: Cancer <Alfredito Palmer - Last Filed: 07/28/23 11:53> General Exam Limitations: no limitations <Alfredito Palmer - Last Filed: 07/28/23 11:53> - General Exam Comments Initial Comments: GENERAL: Patient is well-developed and well-nourished. Patient is nontoxic and well- hydrated and is in moderate distress. ENT: Neck is soft and supple. No significant lymphadenopathy is noted. Oropharynx is clear. Moist mucous membranes. Neck has full range of motion without eliciting any pain. EYES: The sclera were anicteric and conjunctiva were pink and moist. Extraocular movements were intact and pupils were equal round and reactive to light. Eyelids were unremarkable. PULMONARY: Unlabored respirations. Good breath sounds bilaterally. No audible rales r honchi or wheezing was noted. CARDIOVASCULAR: There is a regular rate and rhythm without any murmurs gallops or rubs. ABDOMEN: Soft and nontender with normal bowel sounds. SKIN: Skin is clear with no lesions or rashes and otherwise unremarkable. NEUROLOGIC: Patient is alert and oriented x3. Cranial nerves II through XII are grossly intact. Motor and sensory are also intact. Normal speech, volume and content. Symmetrical smile. Straight leg test is negative bilaterally MUSCULOSKELETAL: Normal extremities with adequate strength and full range of motion. LYMPHATICS: No significant lymphadenopathy is noted PSYCHIATRIC: Normal psychiatric evaluation. (Alfredito Palmer) Course Vital Signs 07/28/23 07/28/23 07/28/23 08:35 09:45 10:55 Temperature 97.8 F Pulse Rate 55 L 73 72 Respiratory 18 18 18 Rate Blood Pressure 153/72 164/91 133/70 O2 Sat by Pulse 98 98 98 Oximetry Medical Decision Making <Alfredito Palmer - Last Filed: 07/28/23 11:53> - Medical Decision Making Was pt. sent in by a medical professional or institution (, PA, BASE WAD OPERATOR ADJUSTER, urgent care, hospital, or fdc...) When possible be specific @ -No Did you speak to anyone other than the patient for history (EMS, parent, family, police, friend...)? What history was obtained from this source @ -No Did you review nursing and triage notes (agree or disagree)? Why? @ -I reviewed and agree with nursing and triage notes Were old charts reviewed (outside hosp., previous admission, EMS record, old EKG, old radiological studies, urgent care reports/EKG's, fdc records)? Report findings @ -I reviewed prior radiological studies Differential Diagnosis (chest pain, altered mental status, abdominal pain women, abdominal pain men, vaginal bleeding, weakness, fever, dyspnea, syncope, headache, dizziness, GI bleed, back pain, seizure, CVA, palpatations, mental health, musculoskeletal)? @ -Differential Musculoskeletal Muscular strain, contusion, ligament sprain, fracture, arthritis, septic arthritis, bursitis, cellulitis, muscle spasm, nerve compression, DVT, arterial occlusion, herpes zoster, electrolyte abnormality, tumor.... This is not meant to be in all inclusive list EKG interpreted by me (3pts min.). @ -As above X-rays interpreted by me (1pt min.). @ -Lumbosacral spine shows multiple compression fractures CT interpreted by me (1pt min.). @ -None done U/S interpreted by me (1pt. min.). @ -None done What testing was considered but not performed or refused? (CT, X-rays, U/S, labs)? Why? @ -None What meds were considered but not given or refused? Why? @ -None Did you discuss the management of the patient with other professionals (professionals i.e. , PA, BASE WAD OPERATOR ADJUSTER, lab, RT, psych nurse, neonatal social worker, pocket flap creasing machine operator, teacher, prison officer, case monitor)? Give summary @ -No Was smoking cessation discussed for >3mins.? @ -No Was critical care preformed (if so, how long)? @ -No Were there social determinants of health that impacted care today? How? (Homelessness, low income, unemployed, alcoholism, drug addiction, transportation, low edu. Level, literacy, decrease access to med. care, fci, rehab)? @ -No Was there de-escalation of care discussed even if they declined (Discuss DNR or withdrawal of care, Hospice)? DNR status @ -No What co-morbidities impacted this encounter? (DM, HTN, Smoking, COPD, CAD, Cancer, CVA, ARF, Chemo, Hep., AIDS, mental health diagnosis, sleep apnea, morbi d obesity)? @ -None Was patient admitted / discharged? Hospital course, mention meds given and route, prescriptions, significant lab abnormalities, going to OR and other pertinent info. @ -Received Toradol and Valium for the discomfort in the muscular region of the lower back. Patient stated she felt much better was able to ambulate at her baseline. Patient was requesting discharge home at this time. Undiagnosed new problem with uncertain prognosis? @ -No Drug Therapy requiring intensive monitoring for toxicity (Heparin, Nitro, Insulin, Cardizem)? @ -No Were any procedures done? @ -No Diagnosis/symptom? @ -Lumbar strain Acute, or Chronic, or Acute on Chronic? @ -Acute Uncomplicated (without systemic symptoms) or Complicated (systemic symptoms)? @ -Uncomplicated Side effects of treatment? @ -No Exacerbation, Progression, or Severe Exacerbation? @ -No Poses a threat to life or bodily function? How? (Chest pain, USA, MS, pneumonia, PE, COPD, DKA, ARF, appy, cholecystitis, CVA, Diverticulitis, Homicidal, [place] icidal, threat to staff... and all critical care pts) @ -No (Alfredito Palmer) Disposition Is patient prescribed a controlled substance at d/c from ED?: No Time of Disposition: 11:56 <Alfredito Palmer - Last Filed: 07/28/23 11:53> <Kanu Porter - Last Filed: 07/28/23 16:36> Clinical Impression: Strain of lumbar region Disposition: HOME SELF-CARE Condition: Good Instructions (If sedation given, give patient instructions): Low Back Strain (ED) Prescriptions: Cyclobenzaprine [Flexeril] 10 mg PO TID PRN #20 tab PRN Reason: Pain Cyclobenzaprine [Flexeril] 5 mg PO TID #10 tab Ibuprofen [Motrin] 600 mg PO Q8HR PRN #20 tab PRN Reason: For pain Referrals: Umair Estes [Primary Care Provider] - 1-2 days
--- NOTE | 2023-07-28 10:29 | XR ---
EXAMINATION TYPE: XR lumbosacral spine min 4V DATE OF EXAM: 07/28/2023 10:13 AM CLINICAL INDICATION:Female, 82 years old with history of Back pain; [facility] COMPARISON: None TECHNIQUE: XR lumbosacral spine min 4V - 6 views lumbar spine. FINDINGS: Exam is significantly limited by body habitus, nonstandard positioning, bowel contents, and severe os seous demineralization. 5 lumbar-type vertebral bodies are presumed for communication purposes. At le ast moderate multilevel spondylosis. There are various degrees of multilevel compression deformity, w hich seem to involve all lumbar levels, and possibly T12. No severe change in AP alignment. Mild levo curvature. Sacrum and SI joints are difficult to assess but there is likely at least [id number] degenerative change of the SI joints. Partially seen hips show moderate to severe osteoarthropathy b ilaterally, with some sclerosis on both sides of each joint. Surgical clips in the right upper quadrant likely from cholecystectomy. Moderate amount of stool and gas throughout the colon. Gas in small bowel loops without significant distention seen. There is heav y atherosclerotic calcification of the aorta and iliac arteries. Uncertain, but there is the suggesti on of saccular abdominal aortic aneurysm measuring up to 4.9 cm AP. IMPRESSION: Markedly limited study as above. At least moderate multilevel lumbar spondylosis. Various degrees of multilevel compression deformity, which seem to involve all lumbar levels, and pos sibly T12. Heavy atherosclerotic calcification of the aorta and iliac arteries. Suggestion of an abdominal aorti c aneurysm measuring up to 4.9 cm AP. RECOMMENDATION: CT/CT angiogram for better evaluation of the above.
[2023-07-28 11:13] VITALS: BP 133/70; PULSE 72
== END 2023-07-28 12:10 | disposition home or self-care (01) ==
LOC: EC 08:33
DX: S39.012A Strain of muscle, fascia and tendon of lower back, initial encounter (principal); I25.10 Atherosclerotic heart disease of native coronary artery without angina pectoris; J44.9 Chronic obstructive pulmonary disease, unspecified; I48.91 Unspecified atrial fibrillation; E07.9 Disorder of thyroid, unspecified; Z79.890 Hormone replacement therapy; Z79.899 Other long term (current) drug therapy; Z79.01 Long term (current) use of anticoagulants; Z91.041 Radiographic dye allergy status; Z88.8 Allergy status to other drugs, medicaments and biological substances; Z86.718 Personal history of other venous thrombosis and embolism; Z86.711 Personal history of pulmonary embolism; Z87.891 Personal history of nicotine dependence; X58.XXXA Exposure to other specified factors, initial encounter
CPT/HCPCS: 72110; 99284; 96374; 96375; J3360; J1885

== ENCOUNTER → 2023-10-16 | Outpatient (CLI) | payer MEDICARE, BC ==
--- NOTE | 2023-10-16 13:33 | XR ---
EXAMINATION TYPE: XR KUB DATE OF EXAM: 10/16/2023 Comparison: None Clinical History: 82-year-old female R63.4 WEIGHT LOSS Findings: Scattered small air-fluid levels throughout. Small bowel measures up to 2.8 cm. No abnormal dilatatio n. Scattered colonic air is present. Moderate stool in the pelvis. Cholecystectomy clips. No evidence for free intraperitoneal air. Impression: Scattered air-fluid levels throughout suggesting a generalized ileus or enteritis. Overall nonobstruc tive bowel gas pattern at this time. Short interval follow-up if clinically indicated. Moderate stool in the pelvis.
--- NOTE | 2023-10-16 13:35 | XR ---
EXAMINATION TYPE: XR chest 2V DATE OF EXAM: 10/16/2023 COMPARISON: 06/25/2023 HISTORY: 82-year-old female R63.4, weight loss TECHNIQUE: Frontal and lateral views FINDINGS: Plate and screw fixation proximal right humerus. Eventration right hemidiaphragm. There is underlying large hiatal hernia redemonstrated. Heart upper limits of normal in size. Upper and mid lungs are cl ear. Strandy densities in the lower lungs suggestive of atelectasis. No significant pleural effusion. Anterior wedging in the lower thoracic spine appear similar. IMPRESSION: Chronic changes with a large hiatal hernia and strandy lower lung areas of atelectasis or scarring. N o definite acute process.
[2023-10-16 18:27] LABS: Basophils # (A) 0.03 X 10*3/uL (0.00-0.10); Basophils % (A) 0.8 %; Eosinophils # (A) 0.18 X 10*3/uL (0.04-0.35); Eosinophils % (A) 4.7 %; HGB 10.9 g/dL (12.0-15.0); Lymphocytes # (A) 0.53 X 10*3/uL (0.90-5.00); Lymphocytes % (A) 13.7 %; MCH 28.3 pg (27.0-32.0); MCHC 30.3 g/dL (32.0-37.0); MCV 93.5 FL (80.0-97.0); Mean Platelet Volume 11.2 FL (9.5-12.2); Monocytes # (A) 0.34 X 10*3/uL (0.20-1.00); Monocytes % (A) 8.8 %; NRBC Per 100 WBC 0 X 10*3/uL (0.00-0.01); Neutrophils # (A) 2.78 X 10*3/uL (1.80-7.70); Neutrophils % (A) 71.7 %; Platelet Count 203 X 10*3/uL (140-440); RBC 3.85 X 10*6/uL (4.10-5.20); RDW 15.6 % (11.5-14.5); WBC 3.87 X 10*3/uL (4.50-10.00)
[2023-10-16 19:06] LABS: ALT 17 U/L (8-44); AST 31 U/L (13-35); Albumin 4.2 g/dL (3.8-4.9); Albumin/Globulin Ratio 1.45 Ratio (1.60-3.17); Alkaline Phosphatase 97 U/L (41-126); BUN/Creat Ratio 23.89 Ratio (12.00-20.00); Blood Urea Nitrogen 21.5 mg/dL (9.0-27.0); Calcium 10.2 mg/dL (8.7-10.3); Carbon Dioxide 23.5 mmol/L (21.6-31.8); Chloride 102 mmol/L (96-109); Globulin 2.9 g/dL (1.6-3.3); Glucose 91 mg/dL (70-110); Potassium 4.1 mmol/L (3.5-5.5); Sodium 140 mmol/L (135-145); Total Bilirubin 0.6 mg/dL (0.3-1.2); Total Protein 7.1 g/dL (6.2-8.2)
[2023-10-16 19:19] LABS: Erythrocyte Sedimentation Rate 15 mm/Hr (0-30)
[2023-10-16 20:27] LABS: Appearance,Urine Clear (Clear); Bilirubin,Urine Negative (Negative); Blood,Urine Negative (Negative); Color,Urine Yellow (Yellow); Ketones,Urine Negative (Negative); Nitrite,Urine Negative (Negative); Specific Gravity,Urine 1.007 (1.001-1.030); Urobilinogen,Urine 0.2 E.U./DL
[2023-10-16 20:35] LABS: Bacteria,Urine 3+ (None Seen)
== END | disposition home or self-care (01) ==
LOC: LABWHC1 12:12
PROVIDERS: ATTEND Family Medicine
DX: K44.9 Diaphragmatic hernia without obstruction or gangrene (principal); E55.9 Vitamin D deficiency, unspecified; E03.9 Hypothyroidism, unspecified; R63.4 Abnormal weight loss
CPT/HCPCS: 36415; 71046; 74018; 80053; 81001; 82306; 84443; 85025; 85652

== ENCOUNTER → 2023-12-30 | Outpatient (CLI) | payer MEDICARE, BC ==
[2023-12-30 14:25] LABS: Basophils # (A) 0.02 X 10*3/uL (0.00-0.10); Basophils % (A) 0.6 %; Eosinophils # (A) 0.17 X 10*3/uL (0.04-0.35); Eosinophils % (A) 5.1 %; HCT 34.5 % (37.2-46.3); HGB 10.5 g/dL (12.0-15.0); Lymphocytes # (A) 0.54 X 10*3/uL (0.90-5.00); Lymphocytes % (A) 16.3 %; MCH 28.7 pg (27.0-32.0); MCHC 30.4 g/dL (32.0-37.0); MCV 94.3 FL (80.0-97.0); Mean Platelet Volume 11.3 FL (9.5-12.2); Monocytes # (A) 0.36 X 10*3/uL (0.20-1.00); Monocytes % (A) 10.9 %; NRBC Per 100 WBC 0 X 10*3/uL (0.00-0.01); Neutrophils # (A) 2.21 X 10*3/uL (1.80-7.70); Neutrophils % (A) 66.8 %; Platelet Count 179 X 10*3/uL (140-440); RBC 3.66 X 10*6/uL (4.10-5.20); RDW 15.7 % (11.5-14.5); WBC 3.31 X 10*3/uL (4.50-10.00)
[2023-12-30 15:10] LABS: Ferritin 46.4 ng/mL (10.0-291.0)
== END | disposition home or self-care (01) ==
LOC: LABWHC1 09:28
PROVIDERS: ATTEND Family Medicine
DX: D50.9 Iron deficiency anemia, unspecified (principal)
CPT/HCPCS: 36415; 82728; 83540; 85025

== ENCOUNTER → 2024-03-21 | Outpatient (CLI) | payer MEDICARE, BC | END | disposition home or self-care (01) | LOC: LABWHC1 09:48 | PROVIDERS: ATTEND Family Medicine | DX: E03.9 Hypothyroidism, unspecified (principal); D50.9 Iron deficiency anemia, unspecified; R63.4 Abnormal weight loss | CPT/HCPCS: 36415; 80053; 84443; 85025 ==